=== PATIENT | female | born 1960 | race Caucasian/White ===

== ENCOUNTER 2025-03-19 12:57 | Inpatient (IN) | payer OTHER, SELFPAY ==
[2025-03-19] VITALS (10 sets, daily range): BP systolic 112–128; BP diastolic 50–63; PULSE 80–91; RESP 14–20; TEMP 36.6–37.1; O2SAT 92–98; BMI 37.9
--- NOTE | ~2025-03-19 | CT_ITS ---
EXAMINATION: CT ABDOMEN AND PELVIS WITH CONTRAST CLINICAL INFORMATION: abdominal pain, concern for microperfpain, concern for microperf Additional history according to electronic medical records: 2 weeks ago patient had colonoscopy. COMPARISON: None available. TECHNIQUE: Multidetector volumetric images were obtained from the superior aspect of the liver through the pubic symphysis following administration 85 cc of Omnipaque 350 intravenous contrast. Sagittal and coronal reformatted images were obtained on the technologist's workstation. Oral contrast: No This CT examination was performed using dose optimization techniques as appropriate, variously including the following: *Automated exposure control *Adjustment of mA and/or kV according to patient size (this includes techniques or standardized protocols for targeted exams where dose is matched to indication/reason for exam; i.e. extremities or head) *Use of iterative reconstruction technique FINDINGS: LOWER CHEST: No lung consolidation. No pleural effusion. LIVER: Hepatomegaly measuring 22.6 cm. Hypodense cystic lesion left hepatic lesion measuring 5.7 x 4.1 x 3.2 cm, with lobulated contour and measuring fluid density (10/ and 4:35/104). GALLBLADDER/BILIARY TREE: The gallbladder is unremarkable with no evidence of radiopaque gallstones, gallbladder wall thickening, or obvious pericholecystic inflammatory changes. No biliary ductal dilatation. PANCREAS: Unremarkable. SPLEEN: No splenomegaly. No focal lesions. ADRENAL GLANDS: No right adrenal nodule. Left adrenal nodule measuring 1.3 cm and 30 Hounsfield units is indeterminate. KIDNEYS AND URETERS: No suspicious solid renal masses, renal stones or hydronephrosis. GASTROINTESTINAL TRACT: Stomach is decompressed. Small bowel loops are normal in caliber. Normal appendix is not identified. Small amount of stool load within relatively decompressed asymmetry and transverse colons. Moderate stool load within the descending colon. Sigmoid colon is distended with moderate amount of stool content, and with diffuse wall thickening. There is an approximately 12.5 x 9.8 x 8.0 cm fluid collection with thick wall (2:61/94, 4:45/104) that communicates with the lumen of the sigmoid colon (4:44/104, 5:78/154); moderate amount of surrounding fat stranding. Scattered colonic diverticula. PERITONEUM/RETROPERITONEUM: Above described pelvic fluid collection extending from the sigmoid colon. No free air. LYMPH NODES: No bulky adenopathy. VASCULAR: No abdominal aortic aneurysm. Moderate atherosclerotic disease with calcifications. PELVIC VISCERA: Urinary bladder is decompressed by presence of pelvic fluid collection posteriorly. OSSEOUS STRUCTURES: No acute or suspicious bone abnormalities. CT/CT abdomen pelvis w IV con IMPRESSION: Pelvic collection with thick wall measuring up to 12.5 cm, extending from the sigmoid colon as described above. The findings are suggestive of contained sigmoid colon perforation. Differential consideration could include complicated diverticulitis. Presence of abnormal findings communicated via secured next message to the ordering provider MARIELA Cortez, with read confirmation at 4:26 PM. Abnormal findings were discussed with Dr. Vaughan at approximately 4:30 PM. Electronically signed by: Bry Devries MD 03/19/2025 04:37 PM EDT
--- NOTE | ~2025-03-19 | XR_ITS ---
CLINICAL HISTORY: medical [facility] 1 view chest x-ray Comparison: CT/VT/SR - CT ABDOMEN PELVIS WITH IV CONTRAST - 03/19/25 14:44 EDT Findings: The lungs are clear. Heart size is normal. No acute fracture. IMPRESSION: 1. No acute findings. This document has been electronically signed by: Lion Vogel MD on 03/19/2025 18:14:02
--- NOTE | 2025-03-19 13:30 | ED_ITS ---
HPI - General Adult General Chief complaint: Abdominal Pain Stated complaint: sent for CT scan Time Seen by Provider: 03/19/25 13:28 Source: patient Mode of arrival: ambulatory Limitations: no limitations History of Present Illness ED Provider: Janel Cortez PA-C HPI narrative: This is a 64 year old female with a history of hypertension, hypercholesterolemia, anemia, diverticulosis, and GERD that presents for evaluation of abdominal pain and urinary frequency. She states that two weeks ago she had a colonoscopy done by Dr. Ledesma to look for a source of her iron deficiency anemia. She has had abdominal pain since the procedure that she initially attributed to gas pain but she became concerned when it did not pass. She states the pain is sharp in quality. She has noticed an increase in urinary frequency, going every 45 minutes. Today she met with a provider at her primary care office, [facility], to have her abdominal pain evaluated and patient states that they were concerned with her abdominal exam and recommended that she be seen to get an emergent evaluation with an abdominal CT. She denies fever, chills or sweats but endorses increased fatigue and difficulty sleeping. She denies cough, chest pain, or shortness of breath. She endorses urinary frequency but denies dysuria, or hematuria. She is able to pass stool and flatus but has suprapubic abdominal pain. She describes the pain as sharp and constricting at times. She denies nausea, vomiting, melena or hematochezia. She endorses chronic constipation secondary to iron supplementation that she treats with Senna daily and Miralax as needed. She denies any skin changes or new rashes. She endorses a history of tobacco and alcohol use that she discontinued 10 years ago. She denies any current tobacco, alcohol, or recreational drug use. Related Data Home Medications ?Medication ?Instructions ?Recorded ?Confirmed citalopram 20 mg tablet 20 mg PO DAILY 03/19/25 metformin 500 mg tablet,extended 500 mg PO DAILY 03/19 release 24 hr olmesartan 40 mg tablet 40 mg PO DAILY 03/19/25 pantoprazole 40 mg tablet,delayed 40 mg PO DAILY 03/19 release rosuvastatin 10 mg tablet 10 mg PO BEDTIME 03/19/25 Allergies Allergy/AdvReac Type Severity Reaction Status Date / Time No Known Allergies (No Known Allergy Verified 03/19/25 13:02 Allergies*) Review of Systems 2 Constitutional: Constitutional: Reports as per HPI Eyes: Eyes: Reports as per HPI ENT: Reports as per HPI Cardiovascular: Cardiovascular: Reports as per HPI Respiratory: Respiratory: Reports as per HPI Gastrointestinal: Gastrointestinal: Reports as per HPI Genitourinary: Genitourinary: Reports as per HPI Musculoskeletal: Musculoskeletal: Reports as per HPI Integumentary/Breasts: Skin/Breast: Reports as per HPI Neurologic: Reports as per HPI Psychiatric: Psychiatric: Reports as per HPI Endocrine: Endocrine: Reports as per HPI Hematologic/Lymphatic: Hematologic/Lymphatic: Reports as per HPI Allergic/Immunologic: Allergic/Immunologic: Reports as per HPI [facility] Past Medical History Attestation statement: The following information was validated with the patient. Source: old records reviewed and nursing notes reviewed Medical History (Updated 03/19/25 @ 17:13 by MARIELA Paulino) Diverticulitis of colon with perforation Social History Social History Advance Directives: No Advance Directives Information Provided: Yes Do you have a plan to hurt others: No Plan Physical Exam ED Vital Signs: Vital Signs - 24 hr 03/19/25 13:00 03/19/25 14:05 03/19/25 16:11 Temperature 98.4 F 98.8 F 98.7 F Pulse Rate 91 84 80 Respiratory Rate 20 14 20 Blood Pressure 128/63 115/55 L 112/53 L Pulse Oximetry 96 95 95 Oxygen Delivery Method Room Air Room Air Room Air BMI result Body Mass Index 37.9 Const General: cooperative, alert, awake and other (Pale) Nutritional Appearance: well nourished Orientation/consciousness: oriented to person, oriented to place, oriented to time and patient oriented x3 HENMT Head: Yes normal to inspection Ears: external ears normal General nose exam: Normal external nose present Face and sinus: Yes normal facial exam Mouth: Normal oral and palatal mucosa present, no drooling and no muffled voice Eyes General: appearance normal, both eyes and all related structures Periorbital: periorbital findings normal Eyelids: Yes eyelids normal Conjunctivae: conjunctivae normal Pupils: Equal, round and reactive pupils present EOM: EOMs intact bilaterally Neck Neck: Yes normal visual inspection Resp Effort & Inspection: normal respiratory effort Auscultation: clear to auscultation bilaterally Cardio Rate: regular rate Rhythm: regular rhythm Heart sounds: S1 normal heart sound present and S2 normal heart sound present GI Palpation (GI): not firm, Tenderness to palpation present (GI), Guarding due to palpation present (GI) and not rigid Auscultation: normal bowel sounds Neuro General: oriented to person, oriented to place, oriented to time and patient oriented x3 Cranial nerves: Yes Equal, round and reactive pupils present Cognition (Neuro): normal cognition Extrem General: Yes normal to inspection, Yes full ROM and Yes capillary refill normal Psych Appearance: grossly normal Mental Status: mental status grossly normal Affect: normal affect Attitude: cooperative Thought process: Normal thought process present Thought content: Normal thought content present Insight: Good insight present (Psych) Medications Administered Discontinued Medications Generic Name Dose Route Start Last Admin Trade Name Tremayneq PRN Reason Stop Dose Admin Iohexol 100 ml 03/19/25 14:48 03/19/25 14:49 Iohexol 350 Mg/Ml 100 Ml Infus..Btl IV 03/19/25 14:49 85 ml ONCE ONE Administration Morphine Sulfate 4 mg 03/19/25 14:03 03/19/25 14:56 Morphine Sulfate 4 Mg/Ml Cartridge IVPUSH 03/19/25 14:04 4 mg ONCE ONE Administration Protocol Ondansetron HCl 4 mg 03/19/25 14:03 03/19/25 14:56 Ondansetron Hcl 4 Mg/2 Ml Vial IVPUSH 03/19/25 14:04 4 mg ONCE ONE Administration Medical Decision Making Medical Decision Making [facility] Narrative: Patient is a 64 year old assigned female at with a history of hypertension, hypercholesterolemia, anemia, diverticulosis, and GERD presenting to the emergency department today with abdominal pain. Patient's physical exam was as noted in the physical exam portion of this note and concerning for an acute abdomen. Patient's blood work showed a hgb 7.4 and hct of 25.8 but otherwise unremarkable. Patient's urine showed no acute process. Patient's CT abd/pelvis showed a pelvic collection with thick wall measuring up to 12.5cm extending from the sigmoid colon suggesting a contained sigmoid colon perforation. I explained my physical exam findings as well as all test results to the patient. I answered all questions asked by the patient. I spoke with the general surgeon, Dr. Vaughan, who recommended getting a repeat H&H and admitting to his service for IV antibiotics. Repeat H&H showed a hgb of 7.7 and hct of 26.3. Patient received IV morphine which, upon re-evaluation, she stated it helped her symptoms some. Patient verbalized agreement and understanding with this treatment plan and admission. Differential Diagnosis Differential Diagnoses: The differential diagnosis associated with the presentation includes Perforation Abdominal pain Diverticulitis Admission/Observation Consideration of admission/observation: Escalation of care including admission/observation considered Patient admitted as noted in the MDM Rationale portion of this note. Consult Healthcare Provider Management of the patient was discussed with: Graphic Art Technician (Spoke with the general surgeon product applications scientist as noted in the MDM Rationale portion of this note. ) Lab Data [facility] Lab Attestation statement: I reviewed the patient's lab results. My interpretation of these results are in the MDM Rationale portion of this note. 03/19/25 14:02 03/19/25 14:02 Labs: Lab Results 03/19/25 03/19/25 Range/Units 13:59 14:02 WBC 7.2 (4.8-10.8) X10*3/uL RBC 3.98 L (4.20-5.50) X10*6/uL Hgb 7.4 L (12.0-16.0) g/dl Hct 25.8 L (37.0-47.0) % MCV 64.8 L (80.0-98.0) fL MCH 18.6 L (27.0-33.0) pg MCHC 28.7 L (31.0-35.0) g/dl RDW 17.2 H (11.0-16.0) % Plt Count 492 H (160-400) X10*3/uL MPV 8.6 L (9.4-12.3) fL Immature Gran % (Auto) 0.3 (0.0-0.4) % Neut % (Auto) 52.7 (45-73) % Lymph % (Auto) 25.7 (20-40) % Dukes % (Auto) 18.9 H (2-11) % Eos % (Auto) 1.4 (0-4) % Baso % (Auto) 1.0 (0-2) % Lymph # (Auto) 1.8 (1.2-4.9) X10*3/uL Dukes # (Auto) 1.4 H (0.1-1.2) X10*3/uL Eos # (Auto) 0.1 (0.0-0.4) X10*3/uL Baso # (Auto) 0.1 (0.0-0.2) X10*3/uL Abs Immat Gran (auto) 0.02 (0.00-0.03) X10*3/uL Absolute Neuts (auto) 3.8 (2.0-8.3) x10*3/uL Absolute Nucleated RBC 0.000 (0.0-0.012) X10*3/uL Nucleated RBC % (auto) 0.0 (0.0-0.2) /100WBC Sodium 139 (135-145) mmol/L Potassium 3.7 (3.3-5.1) mmol/L Chloride 105 (96-108) mmol/L Carbon Dioxide 28 (22-29) mmol/L Anion Gap 10 L (12-20) BUN 7 L (9-16) mg/dL Creatinine 0.52 (0.5-1.4) mg/dL Estim Creat Clear Calc 119.8 Estimated GFR > 60 Random Glucose 86 (60-115) mg/dL Calcium 8.5 (8.4-10.2) mg/dL Total Bilirubin 0.2 (0.0-1.0) mg/dL AST 14 (5-31) U/L ALT < 6 (0-31) U/L Alkaline Phosphatase 78 (39-117) U/L Total Protein 6.4 L (6.5-8.0) g/dL Albumin 3.3 L (3.5-5.0) g/dL Urine Color Yellow Urine Appearance Clear Urine pH 7.0 (5.0-9.0) Ur Specific [place] 1.020 (1.005-1.025) Urine Protein Trace (Neg-Trace) mg/dL Urine Glucose (UA) Negative (Negative) mg/dL Urine Ketones Negative (Negative) mg/dL Urine Blood Negative (Negative) Urine Nitrite Negative (Negative) Ur Leukocyte Esterase Trace H (Negative) Urine RBC 0-2 (0-2) /HPF Urine WBC 0-5 (0-5) /HPF Ur Squamous Epith Cells 6-10 (0-2) /HPF Urine Bacteria Trace (None Seen) Hyaline Casts 0-2 (0-2) /LPF Independent Interpretation I performed an independent interpretation of an: CT Scan Interpretation: My interpretation is in agreement with the radiologist's impression of this imaging study. L Reason for Exam: abdominal pain, concern for microperf EXAMINATION: CT ABDOMEN AND PELVIS WITH CONTRAST CLINICAL INFORMATION:abdominal pain, concern for microperfpain, concern for microperf Additional history according to electronic medical records: 2 weeks ago patient had colonoscopy. COMPARISON: None available. TECHNIQUE: Multidetector volumetric images were obtained from the superior aspect of the liver through the pubic symphysis following administration 85 cc of Omnipaque 350 intravenous contrast. Sagittal and coronal reformatted images were obtained on the technologist's workstation. Oral contrast: No This CT examination was performed using dose optimization techniques as appropriate, variously including the following: *Automated exposure control *Adjustment of mA and/or kV according to patient size (this includes techniques or standardized protocols for targeted exams where dose is matched to indication/reason for exam; i.e. extremities or head) *Use of iterative reconstruction technique FINDINGS: LOWER CHEST: No lung consolidation. No pleural effusion. LIVER: Hepatomegaly measuring 22.6 cm. Hypodense cystic lesion left hepatic lesion measuring 5.7 x 4.1 x 3.2 cm, with lobulated contour and measuring fluid density (10/ and 4:35/104). GALLBLADDER/BILIARY TREE: The gallbladder is unremarkable with no evidence of radiopaque gallstones, gallbladder wall thickening, or obvious pericholecystic inflammatory changes. No biliary ductal dilatation. PANCREAS: Unremarkable. SPLEEN: No splenomegaly. No focal lesions. ADRENAL GLANDS: No right adrenal nodule. Left adrenal nodule measuring 1.3 cm and 30 Hounsfield units is indeterminate. KIDNEYS AND URETERS: No suspicious solid renal masses, renal stones or hydronephrosis. GASTROINTESTINAL TRACT: Stomach is decompressed. Small bowel loops are normal in caliber. Normal appendix is not identified. Small amount of stool load within relatively decompressed asymmetry and transverse colons. Moderate stool load within the descending colon. Sigmoid colon is distended with moderate amount of stool content, and with diffuse wall thickening. There is an approximately 12.5 x 9.8 x 8.0 cm fluid collection with thick wall (2:61/94, 4:45/104) that communicates with the lumen of the sigmoid colon (4:44/104, 5:78/154); moderate amount of surrounding fat stranding. Scattered colonic diverticula. PERITONEUM/RETROPERITONEUM: Above described pelvic fluid collection extending from the sigmoid colon. No free air. LYMPH NODES: No bulky adenopathy. VASCULAR: No abdominal aortic aneurysm. Moderate atherosclerotic disease with calcifications. PELVIC VISCERA: Urinary bladder is decompressed by presence of pelvic fluid collection posteriorly. OSSEOUS STRUCTURES: No acute or suspicious bone abnormalities. CT/CT abdomen pelvis w IV con IMPRESSION: Pelvic collection with thick wall measuring up to 12.5 cm, extending from the sigmoid colon as described above. The findings are suggestive of contained sigmoid colon perforation. Differential consideration could include complicated diverticulitis. Presence of abnormal findings communicated via secured next message to the ordering provider MARIELA Cortez, with read confirmation at 4:26 PM. Abnormal findings were discussed with Dr. Vaughan at approximately 4:30 PM. Electronically signed by: Bry Devries MD 03/19/2025 04:37 PM EDT RP Dictated By: Bry Devries MD Signed By: Electronically signed by Bry Devries MD 03/19/25 1637 I independently interpreted this EKG and am in agreement with the below findings: Vent. Rate: 84 BPM Atrial Rate: 84 BPM P-R Int: 138 ms QRS Dur: 78 ms QT Int: 372 ms P-R-T Axes: 44 -5 9 degrees QTcB Int: 439 ms Normal sinus rhythm Low voltage QRS No previous ECGs available DD/ 1700 Radiology Impression Discussion of test interpretation with radiology: I have reviewed the radiologist's reading. Critical Care Time Critical Care Time Critical Care Time: Yes Total Critical Care Time: 51 Attestation: I spent 51 minutes of Critical Care Time with this patient. This does not include time spent on separately reported billable procedures. Discharge Plan Discharge Clinical Impression: Diverticulitis of colon with perforation Patient Disposition: Admitted As Inpatient Print Language: Pakistani
[2025-03-19 14:06] LABS: MANUAL DIFF FLAG NO
[2025-03-19 14:11] LABS: Hematocrit 25.8 % (37.0-47.0); Hemoglobin 7.4 g/dl (12.0-16.0); Imm Gran Abs Auto 0.02 X10*3/uL (0.00-0.03); Imm Gran Pct Auto 0.3 % (0.0-0.4); Lymphocytes Absolute Auto 1.8 X10*3/uL (1.2-4.9); Mean Corpuscular HGB Conc 28.7 g/dl (31.0-35.0); Mean Corpuscular Hemoglobin 18.6 pg (27.0-33.0); NRBC Abs Auto 0.000 X10*3/uL (0.0-0.012); NRBC Pct Auto 0.0 /100WBC (0.0-0.2); Platelet Count 492 X10*3/uL (160-400); Red Blood Count 3.98 X10*6/uL (4.20-5.50); White Blood Count 7.2 X10*3/uL (4.8-10.8)
[2025-03-19 14:12] LABS: Mean Corpuscular Volume 64.8 fL (80.0-98.0)
[2025-03-19 14:12] LABS: Appearance Urine Clear; Glucose Urine UA Negative (Negative); PH 7.0 (5.0-9.0); Specific Gravity - Urine 1.020 (1.005-1.025); UMIC TRIGGER UACC YES
[2025-03-19 14:24] LABS: Alanine Aminotransferase < 6 U/L (0-31); Albumin Level 3.3 g/dL (3.5-5.0); Alkaline Phosphatase 78 U/L (39-117); Anion Gap 10 (12-20); Aspartate Amino Transferase 14 U/L (5-31); Blood Urea Nitrogen 7 mg/dL (9-16); Calcium 8.5 mg/dL (8.4-10.2); Carbon Dioxide 28 mmol/L (22-29); Chloride 105 mmol/L (96-108); Creatinine Clr Calc Pharmacy 119.8; Estimated Glomerular Filt Rate > 60; Potassium 3.7 mmol/L (3.3-5.1); Sodium 139 mmol/L (135-145); Total Protein 6.4 g/dL (6.5-8.0)
[2025-03-19] MEDS: iohexoL 350 MG/ML 100 ML INFUS..BTL IV (14:49)
--- OUTSIDE RECORDS SUMMARY | 2025-03-19 15:51 | XMS_ITS | Clinical Summary ---
Author Organization [facility] Address [address] [place] [phone] Phone Care Team Providers Care Telecommunications Field Engineer Name Role Phone Pcp, Unknown Primary Care Provider Unavailabl e Encounters Date Type Department Care Team Description 03/05/2025 8:16 AM EDT - 03/05/2025 11:59 PM EDT Hospital Encounter [facility] [address] [place] [id number] Juan Ledesma MD Discharge Disposition: Home or Self Care from Last 3 Months Social History Tobacco Use Types Packs/Day Years Used Date Smoking Tobacco: Never Assessed Education Answer Date Recorded Are you interested in more education? Not on jeffrey e 09/24/2024 Are you concerned about learning? Not on file 09/24/2024 No 09/24/2024 No 09/24/2024 Digital Access Answer Date Recorded No 09/24/2024 No 09/24/2024 Reliable internet access at home? Not on file 09/24/2024 Device with a working camera? Not on file Comments Unknown Sex and Gender Information Value Date Recorded Sex Assigned at Not on file Legal Sex Female 4:56 PM EDT Gender Identity Not on file Sexual Orientation Not on file Plan of Treatment Not on file Medical Devices Not on file Procedures Procedure Name Priority Date/Time Associated Diagnosis Comments ANATOMIC PATHOLOGY Routine 03/05/2025 12 :00 AM EDT from Last 3 Months Results * Anatomic Pathology (03/05/2025 12:00 AM EDT) 03/05/2025 03/06/2025 10: 37 AM EDT Narrative SEE NARRATIVE - 03/07/2025 1:55 PM EDT [address] [address] Hvac Operations Technician: Waqas Ta MD Surgical Pathology Report FINAL PATHOLOGIC DIAGNOSIS: A. DUODENUM, BIOPSY: No pathologic abnormality. B. COLON POLYP AT 55CM: Inflammatory polyp. Electronically Signed Out By Waqas Ta MD By his/her signature above, the pathologist listed as making the Final Diagnosis certifies that he/she has personally reviewed this case and confirmed or corrected the diagnosis. CLINICAL HISTORY Iron deficiency anemia, gastroesophageal reflux disease, last colonoscopy previous aborted/incomplete at [facility] May 2022 SPECIMENS SUBMITTED: A: DUODENUM, BIOPSY B: COLON AT 55CM, POLYP GROSS DESCRIPTION A. DUODENUM, BIOPSY: Received in formalin are 3 irregular raymond-pink soft tissue fragments varying in size from 0.3 x 0.2 x 0.2 cm up to 0.4 x 0.3 x 0.3 cm which are submitted in toto in a single cassette labeled A1. B. COLON AT 55CM, POLYP: Received in formalin is a 0.5 x 0.4 x 0.3 cm irregular portion of raymond-pink soft tissue which is submitted in toto in a single cassette labeled B1. Grossed by: MARVA Williamson, PA([facility]) [id number] 03/06/2025 Grossing Staff: [id number] Patient Name: AGUSTIN FLORES : 1960 (Age: 64) Sex: F Institution: [facility] Location: [facility] Date of Operation: 03/05/2025 Date of Reported: 03/07/2025 13:55 Results To: Juan Ledesma MD [facility] Chastity Yuan NP us Juan Ledesma MD PATHOLOGY ORDERABLES Final Res ult SEE NARRATIVE from Last 3 Months Insurance [facility] UMR U[employer] [facility] Care Teams Telecommunications Field Engineer Relationship Specialty Start Date End Date Pcp, Unknown PCP - General 09/23/24 Additional Source Comments The information contained in this document represents components of the legal health record. It is not the complete legal health record.[facility]
--- NOTE | 2025-03-19 16:31 | ECG_ITS ---
Test Reason : MEDICAL CLEARANCE Blood Pressure : */* mmHG Vent. Rate : 84 BPM Atrial Rate : 84 BPM P-R Int : 138 ms QRS Dur : 78 ms QT Int : 372 ms P-R-T Axes : 44 -5 9 degrees QTcB Int : 439 ms Normal sinus rhythm Low voltage QRS Borderline ECG No previous ECGs available Referred By: Janel Cortez Electronically Signed By: Jluis Alvarez
[2025-03-19 16:56] LABS: MANUAL DIFF FLAG NO
[2025-03-19 16:57] LABS: Hematocrit 26.3 % (37.0-47.0); Hemoglobin 7.7 g/dl (12.0-16.0); Imm Gran Abs Auto 0.02 X10*3/uL (0.00-0.03); Imm Gran Pct Auto 0.3 % (0.0-0.4); Lymphocytes Absolute Auto 2.1 X10*3/uL (1.2-4.9); Mean Corpuscular HGB Conc 29.3 g/dl (31.0-35.0); Mean Corpuscular Hemoglobin 18.8 pg (27.0-33.0); NRBC Abs Auto 0.000 X10*3/uL (0.0-0.012); NRBC Pct Auto 0.0 /100WBC (0.0-0.2); Platelet Count 501 X10*3/uL (160-400); Red Blood Count 4.10 X10*6/uL (4.20-5.50); White Blood Count 7.3 X10*3/uL (4.8-10.8)
[2025-03-19 16:58] LABS: Mean Corpuscular Volume 64.1 fL (80.0-98.0)
--- NOTE | 2025-03-19 17:00 | PM.HPGS ---
History of Present Illness History of Present Illness Date of Service: 03/24/25 Chief complaint: Diverticulitis with contained perforation Narrative: Flores Xiao is a 64 year old female known diverticular disease, chronic anemia, borderline diabetes, here in the ER because of lower abdominal pain. She says that he has had this for several months but seems to have been worse the past 2 weeks. She actually had a colonoscopy 2 weeks ago in [facility] and she was noted to have poor bowel prep, severe diverticulosis and a narrowing in the sigmoid as well. In view of her persistent pain on the lower abdomen, she was sent to the ER by her primary care physician today She denies admitting although she says she may have been a little nauseous earlier today She has chronic constipation. She did have good bowel movements yesterday. She denies any fever or chills. She describes some urgency of urination and says that she often feels pressure in the pelvis when she urinates. She otherwise says that she remains active with good oral intake even today. She says she has been ambulating well at home. Review of Systems Constitutional: Constitutional: Denies chills and Denies fever(s) Cardiovascular: Cardiovascular: Denies chest pain, Denies dyspnea and Denies dyspnea on exertion Respiratory: Respiratory: Denies cough, Denies dyspnea and Denies dyspnea on exertion Gastrointestinal: Gastrointestinal: Denies hematochezia, Denies change in bowel habits and Reports constipation Genitourinary: Genitourinary: Denies hematuria Musculoskeletal: Musculoskeletal: Denies back pain and Denies limited range of motion Neurologic: Denies focal weakness and Denies convulsions Psychiatric: Psychiatric: Denies depression and Denies mood swings [facility] Past Medical History Medical History Anxiety HTN (hypertension) Class 2 obesity Depression HLD (hyperlipidemia) GERD (gastroesophageal reflux disease) Borderline diabetes Iron deficiency anemia Diverticulitis of colon with perforation Surgical History Surgical History Status post surgical removal of malignant neoplasm of skin Social History Social History Household Members: Family Housing: House Do you presently have visiting nurse or other home services: No Patient Tobacco Use Status: Former Tobacco user service: No Meds Allergies Allergy/AdvReac Type Severity Reaction Status Date / Time No Known Allergies (No Known Allergy Verified 03/20/25 10:00 Allergies*) Home Medications ?Medication ?Instructions ?Recorded ?Confirmed ?Last Taken ?Type acetaminophen 500 mg tablet 1,000 mg PO BID PRN Pain 03/19/25 03/19/25 Unknown History citalopram 20 mg tablet 20 mg PO BEDTIME 03/19/25 03/19/25 03/18/25 History metformin 500 mg tablet,extended 500 mg PO BEDTIME 03/19/25 03/19/25 03/18/25 History release 24 hr olmesartan 40 mg tablet 40 mg PO BEDTIME 03/19/25 03/19/25 03/18/25 History pantoprazole 40 mg tablet,delayed 40 mg PO DAILY@1630 03/19/25 03/19/25 03/18/25 History release rosuvastatin 10 mg tablet 10 mg PO BEDTIME 03/19/25 03/19/25 03/18/25 History sennosides 8.6 mg tablet (senna) 17.6 mg PO BEDTIME PRN Constipation 03/19/25 03/19/25 Unknown History Physical Exam Vital Signs: Vital Signs: Last Vital Signs Temp 98.7 F 03/19/25 16:11 Pulse 80 03/19/25 16:11 Resp 20 03/19/25 16:11 BP 112/53 L 03/19/25 16:11 Pulse Ox 95 03/19/25 16:11 O2 Del Method Room Air 03/19/25 16:11 BMI result Body Mass Index 37.9 Const: General: comfortable and no acute distress Orientation/consciousness: patient oriented x3 Neck: Neck: Yes no lymphadenopathy Resp: Auscultation: clear to auscultation bilaterally Cardio: Rhythm: regular rhythm GI: Other: Mild lower abdominal tenderness without any guarding or rebound Palpation (GI): Soft to palpation, nontender and no guarding Neuro: General: patient oriented x3 Results Results Labs: Short CBC 03/19/25 03/19/25 Range/Units 14:02 16:51 WBC 7.2 7.3 (4.8-10.8) X10*3/uL Hgb 7.4 L 7.7 L (12.0-16.0) g/dl Hct 25.8 L 26.3 L (37.0-47.0) % Plt Count 492 H 501 H (160-400) X10*3/uL BMP 03/19/25 14:02 Sodium 139 Potassium 3.7 Chloride 105 Carbon Dioxide 28 BUN 7 L Creatinine 0.52 Calcium 8.5 Liver Function 03/19/25 Range/Units 14:02 Total Bilirubin 0.2 (0.0-1.0) mg/dL AST 14 (5-31) U/L ALT < 6 (0-31) U/L Alkaline Phosphatase 78 (39-117) U/L Albumin 3.3 L (3.5-5.0) g/dL Urine 03/19/25 Range/Units 13:59 Urine Color Yellow Urine Appearance Clear Urine pH 7.0 (5.0-9.0) Ur Specific [place] 1.020 (1.005-1.025) Urine Protein Trace (Neg-Trace) mg/dL Urine Glucose (UA) Negative (Negative) mg/dL Abdomen CT scan report/results: report reviewed and image reviewed CT scan - pelvis: report reviewed and image reviewed Additional studies: CT/CT abdomen pelvis w IV con IMPRESSION: Pelvic collection with thick wall measuring up to 12.5 cm, extending from the sigmoid colon as described above. The findings are suggestive of contained sigmoid colon perforation. Differential consideration could include complicated diverticulitis. Presence of abnormal findings communicated via secured next message to the ordering provider MARIELA Cortez, with read confirmation at 4:26 PM. Abnormal findings were discussed with Dr. Vaughan at approximately 4:30 PM. Assessment and Plan (1) Diverticulitis of colon with perforation: Status: Acute She has had persistent lower abdominal pain for more than 2 weeks now. I have reviewed her CAT scan with the radiologist. This is consistent with acute diverticulitis with a contained perforation. This appears to be more than just an abscess. There was note of significant inflammatory changes in the segment of the sigmoid. In view of the large size of this contained perforation, this is unlikely to resolve. I explained to her that it this is likely that she will benefit from resection with a colostomy for this markedly diseased sigmoid. I explained the technique of this procedure of hand assisted laparoscopic sigmoid resection and stoma with possible conversion to open laparotomy. I reviewed the risks including but not limited to bleeding, infections, injury to other organs including adjacent bowel and urinary tract, inherent risks of anesthesia including blood clots, pneumonia, PA, as well as the benefits and alternatives. I reviewed with her what to expect postoperatively She says she understands. We will re-evaluate her tomorrow. I will put her on the add on schedule in the meantime . Her hemoglobin is low and she does state that she has chronic anemia with an etiology that is unknown. She denies any obvious GI bleed. I will transfuse her tonight with 1 unit in preparation for likely surgery. I will also consult the hospitalist service in view of her diabetes and hypertension. I have consulted IR for tomorrow to see if there is any benefit for IR drainage. She is hemodynamically stable and appears comfortable currently. Her family was with her during the discussion. Quality Stroke Does the patient have a stroke diagnosis?: No VTE Prior VTE?: No VTE Risk Level:: Medical - moderate - high VTE Device Contraindication: N/A - Device Ordered VTE Drug Contraindication: N/A - Med Ordered Procedures Date of Service Date of Service: 03/24/25
[2025-03-19] MEDS: Lactated Ringers 1,000 ML 80 ML IVCONT (17:45)
--- NOTE | 2025-03-19 17:49 | PHA.MEDREC ---
Addendum entered by Karlos Torrez RPh 03/19/25 17:54: Reviewed by [facility] Original Note: Pharmacy Consult ? Medication Reconciliation Pharmacy has completed the medication reconciliation. Spoke with pt and she confirmed her medications. Pt confirmed her medications are taken at bedtime. Pt takes an OTC medication; Reacted Iron: 1 BID.
--- NOTE | 2025-03-19 18:51 | PC.NURSE ---
Call received from blood bank PRBC's ready, tiger text Dr. Vaughan to come and consent pt.
--- NOTE | 2025-03-19 18:56 | MHC.EDTECH ---
pt independently transferred to hospital bed, pt comfortable, call zaidi and bedside table within reach, RN aware
--- NOTE | 2025-03-19 19:35 | PC.NURSE ---
Received text from Dr. Vaughan regarding consent, states not in-house, will request ED doc for consent
--- NOTE | 2025-03-19 19:52 | PC.NURSE ---
Consent for transfusion obtained via Dr. Abdi
--- NOTE | 2025-03-19 22:10 | P.CONHOSP_ITS ---
History of Present Illness Data of Consult Service Date: 03/19/25 Requesting physician: Declan Vaughan Primary Care Provider: Chastity Yuan NP HPI Reason for consult: medical management Patient is a 64-year-old female with a past medical history significant for diverticulosis, iron-deficiency anemia, borderline diabetes on metformin, GERD, hyperlipidemia, depression, hypertension and class 2 obesity, who presented to the ED due to abdominal pain and feeling unwell for the past 2 weeks after having a colonoscopy. She reports increased urination with an odor, nausea. No diarrhea or constipation. No hematochezia. now having new 5/10 epigastric pain, deep, ache. still having lower abd pain as well. Workup in the ED significant for sigmoid diverticulitis with perforation and abscess. Patient was admitted by surgery for and assisted laparoscopic sigmoid resection with stoma and possible conversion to open laparotomy tomorrow. Hemoglobin 7.4, repeat 7.7, patient getting 1 unit PRBC now. She was started on Zosyn. Hospitalist consultation placed for medical management. Review of Systems 2 Constitutional: Constitutional: Denies body ache(s), Denies chills, Denies fatigue, Denies fever(s) and Reports headache(s) Eyes: Eyes: Denies change in vision ENT: Reports headache(s), Denies nasal congestion and Denies sore throat Cardiovascular: Cardiovascular: Denies chest pain, Denies rapid heart rate, Denies leg edema, Denies lightheadedness and Denies dyspnea Respiratory: Respiratory: Denies chest congestion, Denies cough, Denies dyspnea and Denies wheezing Gastrointestinal: Gastrointestinal: Reports as per HPI and Reports nausea Genitourinary: Genitourinary: Denies difficulty voiding and Denies dysuria Musculoskeletal: Musculoskeletal: Denies back pain and Denies myalgias Integumentary/Breasts: Skin/Breast: Denies rash Neurologic: Denies confusion and Reports headache(s) Psychiatric: Psychiatric: Denies confusion Endocrine: Endocrine: Denies fatigue Hematologic/Lymphatic: Hematologic/Lymphatic: Denies easy bleeding and Denies easy bruising Allergic/Immunologic: Allergic/Immunologic: Denies wheezing [facility] Medical History (Updated 03/19/25 @ 22:40 by Bela Owen PA-C) Class 2 obesity Depression HLD (hyperlipidemia) GERD (gastroesophageal reflux disease) Borderline diabetes Iron deficiency anemia Diverticulitis of colon with perforation Functional capacity: independent ambulation Social History Smoked in Last 30 Days: No Use of substances other than those prescribed or required for medical reasons: No Advance Directives: No Advance Directives Information Provided: Yes Do you have a plan to hurt others: No Plan Patient : No Narrative: No smoking, alcohol or drug use Meds Allergies Allergy/AdvReac Type Severity Reaction Status Date / Time No Known Allergies (No Known Allergy Verified 03/19/25 13:02 Allergies*) Active Medications: Current Medications Acetaminophen (Acetaminophen 325 Mg Tablet) 650 mg PO Q6H PRN PRN Reason: Pain, Mild 1-3,fever,headache Calcium Carbonate (Calcium Carbonate 750 Mg Tab.Chew) 750 mg PO Q4H PRN PRN Reason: Heartburn Heparin Sodium (Porcine) (Heparin Sodium,Porcine 5,000 Unit/Ml Vial) 5,000 unit SUBCUT Q8H [facility] Lactated Ringer's (Lr) 1,000 mls @ 80 mls/hr IVCONT .[id number] [facility] Last Admin: 03/19/25 17:45 Dose: 80 mls/hr Piperacillin Sod/Tazobactam (Sod 3.375 gm/ Sodium Chloride) 50 mls @ 100 mls/hr IV Q6H [facility] Last Infusion: 03/19/25 18:45 Dose: Infused Melatonin (Melatonin 3 Mg Tablet) 6 mg PO BEDTIME PRN PRN Reason: Insomnia Morphine Sulfate (Morphine Sulfate 4 Mg/Ml Cartridge) 3 mg IVPUSH Q4H PRN; Protocol PRN Reason: Pain, Severe (Pain Scale 7-10) Last Admin: 03/19/25 17:50 Dose: 3 mg Ondansetron HCl (Ondansetron Hcl 4 Mg/2 Ml Vial) 4 mg IVPUSH Q8H PRN PRN Reason: Nausea and Vomiting Sodium Chloride (0.9 % Sodium Chloride Flush 3 Ml Syringe) 3 ml IVFLUSH QSHIFT [facility] Valsartan (Valsartan 160 Mg Tablet) 160 mg PO DAILY [facility] Home Medications ?Medication ?Instructions ?Recorded ?Confirmed ?Last Taken ?Type acetaminophen 500 mg tablet 1,000 mg PO BID PRN Pain 0 03/19/25 03/19/25 Unknown History citalopram 20 mg tablet 20 mg PO BEDTIME 03/19/2503/18/25 History metformin 500 mg tablet,extended 500 mg PO BEDTIME 03/19/25 03/18/25 History release 24 hr olmesartan 40 mg tablet 40 mg PO BEDTIME 03/19/2503/18/25 History pantoprazole 40 mg tablet,delayed 40 mg PO DAILY@1630 03/19/25 03/19/25 03/18/25 History release rosuvastatin 10 mg tablet 10 mg PO BEDTIME 03/19/2503/18/25 History sennosides 8.6 mg tablet (senna) 17.6 mg PO BEDTIME [place] N Constipation 03/19/25 03/19/25 Unknown History Physical Exam 2 Vital Signs and Narrative: Vital Signs: Last Vital Signs Temp 98.4 F 03/19/25 20:51 Pulse 82 03/19/25 20:51 Resp 14 03/19/25 20:51 BP 120/53 L 03/19/25 20:51 Pulse Ox 92 03/19/25 20:51 O2 Del Method Room Air 03/19/25 20:51 BMI result Body Mass Index 37.9 General: AOx3, no acute distress Resp: CTA bilaterally CVS: S1, S2, RRR GI: +BS, tender throughout, mild distention Skin: Warm, dry Neuro: Cranial nerves II-XII grossly intact bilaterally. Motor grossly intact bilaterally Extremities: No pitting edema Psych: Appropriate affect Const: General: No confusion Orientation/consciousness: No confusion Neuro: General: No confusion Results Labs 03/19/25 16:51 03/19/25 14:02 Labs: Laboratory Results - last 24 hr 03/19/25 03/19/25 03/19/25 13:59 14:02 16:51 MCV 64.8 L 64.1 L MCH 18.6 L 18.8 L MCHC 28.7 L 29.3 L RDW 17.2 H 17.4 H Plt Count 492 H 501 H MPV 8.6 L 8.4 L Immature Gran % (Auto) 0.3 0.3 Neut % (Auto) 52.7 53.6 Lymph % (Auto) 25.7 28.3 Teller % (Auto) 18.9 H 15.6 H Eos % (Auto) 1.4 1.4 Baso % (Auto) 1.0 0.8 Lymph # (Auto) 1.8 2.1 Teller # (Auto) 1.4 H 1.1 Eos # (Auto) 0.1 0.1 Baso # (Auto) 0.1 0.1 Abs Immat Gran (auto) 0.02 0.02 Absolute Neuts (auto) 3.8 3.9 Absolute Nucleated RBC 0.000 0.000 Nucleated RBC % (auto) 0.0 0.0 Anion Gap 10 L Estim Creat Clear Calc 119.8 Estimated GFR > 60 Random Glucose 86 Calcium 8.5 Total Bilirubin 0.2 AST 14 ALT < 6 Alkaline Phosphatase 78 Total Protein 6.4 L Albumin 3.3 L Urine Color Yellow Urine Appearance Clear Urine pH 7.0 Ur Specific [place] 1.020 Urine Protein Trace Urine Glucose (UA) Negative Urine Ketones Negative Urine Blood Negative Urine Nitrite Negative Ur Leukocyte Esterase Trace H Urine RBC 0-2 Urine WBC 0-5 Ur Squamous Epith Cells 6-10 Urine Bacteria Trace Hyaline Casts 0-2 Blood Type O Positive Antibody Screen NEGATIVE Crossmatch See Detail Imaging Radiologist's Impressions: Impressions Abdomen/Pelvis CT 03/19/25 14:44 IMPRESSION: Pelvic collection with thick wall measuring up to 12.5 cm, extending from the sigmoid colon as described above. The findings are suggestive of contained sigmoid colon perforation. Differential consideration could include complicated diverticulitis. Presence of abnormal findings communicated via secured next message to the ordering provider MARIELA Cortez, with read confirmation at 4:26 PM. Abnormal findings were discussed with Dr. Vaughan at approximately 4:30 PM. Electronically signed by: Bry Devries MD 03/19/2025 04:37 PM EDT Assessment and Plan (1) Diverticulitis of colon with perforation: Status: Acute (2) Iron deficiency anemia: Status: Acute Plan Patient is a 64-year-old female with a past medical history significant for diverticulosis, iron-deficiency anemia, borderline diabetes on metformin, GERD, hyperlipidemia, depression, hypertension and class 2 obesity, who presented to the ED due to abdominal pain and feeling unwell for the past 2 weeks after having a colonoscopy. Admitted by general surgery for diverticulitis with sigmoid colon perforation and abscess, plan for hand assisted laparoscopic sigmoid resection tomorrow with stoma and possible conversion to open laparoscopy. Diverticulitis with colon perforation/abscess - plan per surgery, OR tomorrow - Dr Vaughan aware of new epigastric pain - Zosyn - high-risk for high-risk surgery, RCRI score 1 - hold heparin prior to surgery Iron deficiency anemia, hgb 7.7 - 1U PRBC - follow H+H borderline DM - hold metformin - sliding scale insulin GERD - PPI HLD - statin mood - citalopram HTN, normotensive - olmesartan class 2 obesity - weight loss encouraged Thank you for allowing me to participate in the pt's care. Will follow along. Please contact the medical team if any questions or concerns.
--- NOTE | 2025-03-19 22:10 | HO.NURTONUR ---
Addendum entered by Nga Bai RN 03/19/25 22:15: Pt has been npo w/ ice chips per Dr. Vaughan Original Note: Pt here w/ c/o lower abd pain since having her colonoscopy 2 weeks ago. Pt states she was told after the procedure she has severe diverticulosis . Pt has no assoc sx's. CT shows 12cm fluid collection in abdomen, probable abscess w/ perforation. Plan is for IR for drain or surgery. Pt also has pmhx of anemia however today was found to be extra low @ 01/18 and was transfused w/ 1 unit PRBC's in anticipation of surgery. Pain controlled w/ MSO4.
--- NOTE | 2025-03-19 22:59 | PC.NURSE ---
this rn assumed care of pt, pt resting in stretcher, no acute distress noted. blood products and fluids administering per mar at this time
[2025-03-19 23:51] LABS: Glucose, Whole Blood 88 mg/dL (60-115)
[2025-03-20] VITALS (27 sets, daily range): BP systolic 87–141; BP diastolic 30–77; PULSE 72–101; RESP 11–20; TEMP 36.6–36.9; O2SAT 92–100; BMI 41.6
--- NOTE | 2025-03-20 | PC.NURSE ---
pt reporting 7/10 abdominal pain, medicated per mar with prn pain medication, ambulatory to bathroom independently with steady gait
[2025-03-20 04:11] LABS: Hematocrit 27.1 % (37.0-47.0); Hemoglobin 8.2 g/dl (12.0-16.0); Imm Gran Abs Auto 0.03 X10*3/uL (0.00-0.03); Imm Gran Pct Auto 0.4 % (0.0-0.4); Lymphocytes Absolute Auto 1.9 X10*3/uL (1.2-4.9); MANUAL DIFF FLAG SCAN; Mean Corpuscular HGB Conc 30.3 g/dl (31.0-35.0); Mean Corpuscular Hemoglobin 19.7 pg (27.0-33.0); NRBC Abs Auto 0.000 X10*3/uL (0.0-0.012); NRBC Pct Auto 0.0 /100WBC (0.0-0.2); Platelet Count 442 X10*3/uL (160-400); Red Blood Count 4.17 X10*6/uL (4.20-5.50); SCAN SMEAR FLAG 1; White Blood Count 6.7 X10*3/uL (4.8-10.8)
[2025-03-20 04:15] LABS: Mean Corpuscular Volume 65.0 fL (80.0-98.0)
[2025-03-20 04:23] LABS: Anion Gap 12 (12-20); Blood Urea Nitrogen 7 mg/dL (9-16); Calcium 8.4 mg/dL (8.4-10.2); Carbon Dioxide 26 mmol/L (22-29); Chloride 106 mmol/L (96-108); Creatinine Clr Calc Pharmacy 119.8; Estimated Glomerular Filt Rate > 60; Potassium 3.4 mmol/L (3.3-5.1); Sodium 141 mmol/L (135-145)
[2025-03-20 05:24] LABS: Glucose, Whole Blood 89 mg/dL (60-115)
[2025-03-20] MEDS: Lactated Ringers 1,000 ML 80 ML IVCONT ×2 (06:10→19:59)
--- NOTE | 2025-03-20 06:15 | PC.NURSE ---
pt medicated per aug for 8 headache at this time, ambulatory to bathroom with steady gait. fluids administering
[2025-03-20 07:01] LABS: Glucose, Whole Blood 81 mg/dL (60-115)
--- NOTE | 2025-03-20 07:07 | PC.NURSE ---
Assumed care of patient. Pt is calm and cooperative, A+OX4, pt denies any CP or SOB, RR even and unlabored. Pt c/o ongoing lower abdominal pain, now a / and medicated per AUG. Pt is ambulatory at baseline. Pt denies any other complaints, no n/v.
--- NOTE | 2025-03-20 08:12 | P.CONAN_ITS ---
Documented by User: Shavon Maguire NP 03/20/25 09:24 HPI - Anesthesia Eval Consult details Narrative: 64 yr old female for Hand Assist Laparoscopic Sigmoid Resection No CP/SOB with limited activity 2/2 knee, hip pain. No recent illness Received 1 unit PRBCs 03/19/25 for Hgb 7.4, now 8.2 Had colonoscopy [address] Ledesma, [facility]; no trouble with anesthesia Prediabetes: well controlled, on metformin PMF Active Problems Active Problems: All Active Problems (Updated 03/19/25 @ 22:40 by Bela Owen PA-C) Class 2 obesity (Acute) Depression (Acute) HLD (hyperlipidemia) (Acute) GERD (gastroesophageal reflux disease) (Acute) Borderline diabetes (Acute) Iron deficiency anemia (Acute) Diverticulitis of colon with perforation (Acute) Past Medical History Medical History Anxiety HTN (hypertension) Class 2 obesity Depression HLD (hyperlipidemia) GERD (gastroesophageal reflux disease) Borderline diabetes Iron deficiency anemia Diverticulitis of colon with perforation Functional capacity: independent ambulation Family History Family history of problems with anesthesia: No Surgical History Surgical History Status post surgical removal of malignant neoplasm of skin History of Problems with Anesthesia: No Social History Social History Patient Tobacco Use Status: Former Tobacco user Meds Allergies Allergy/AdvReac Type Severity Reaction Status Date / Time No Known Allergies (No Known Allergy Verified 03/20/25 10:00 Allergies*) Active Medications: Current Medications Acetaminophen (Acetaminophen 325 Mg Tablet) 650 mg PO Q6H PRN PRN Reason: Pain, Mild 1-3,fever,headache Last Admin: 03/20/25 06:07 Dose: 650 mg Atorvastatin Calcium (Atorvastatin Calcium 20 Mg Tablet) 20 mg PO BEDTIME [facility] Calcium Carbonate (Calcium Carbonate 750 Mg Tab.Chew) 750 mg PO Q4H PRN PRN Reason: Heartburn Dextrose (Dextrose 50 % 25 Gm/50 Ml Syringe) 25 gm IVPUSH Q15M PRN; Protocol PRN Reason: per Hypoglycemia Standing Ord. Escitalopram Oxalate (Escitalopram Oxalate 10 Mg Tablet) 10 mg PO BEDTIME [facility] Glucose (Glucose Gel 15 Gm Gel..Gram.) 15 gm PO Q15M PRN; Protocol PRN Reason: per Hypoglycemia Standing Ord. Heparin Sodium (Porcine) (Heparin Sodium,Porcine 5,000 Unit/Ml Vial) 5,000 unit SUBCUT Q8H [facility] Lactated Ringer's (Lr) 1,000 mls @ 80 mls/hr IVCONT .[id number] [facility] Last Admin: 03/20/25 06:10 Dose: 80 mls/hr Piperacillin Sod/Tazobactam (Sod 3.375 gm/ Sodium Chloride) 50 mls @ 100 mls/hr IV Q6H [facility] Last Infusion: 03/20/25 06:38 Dose: Infused Insulin Human Lispro (Insulin Lispro 100 Unit/Ml 3 Ml Vial) 0 unit SUBCUT Q6H [facility]; Protocol Last Admin: 03/20/25 06:12 Dose: Not Given Melatonin (Melatonin 3 Mg Tablet) 6 mg PO BEDTIME PRN PRN Reason: Insomnia Morphine Sulfate (Morphine Sulfate 4 Mg/Ml Cartridge) 3 mg IVPUSH Q4H PRN; Protocol PRN Reason: Pain, Severe (Pain Scale 7-10) Last Admin: 03/20/25 07:05 Dose: 3 mg Omeprazole (Omeprazole 20 Mg Capsule.Dr) 20 mg PO DAILY@1630 [facility] Ondansetron HCl (Ondansetron Hcl 4 Mg/2 Ml Vial) 4 mg IVPUSH Q8H PRN PRN Reason: Nausea and Vomiting Sodium Chloride (0.9 % Sodium Chloride Flush 3 Ml Syringe) [facility] Last Admin: 03/20/25 06:53 Dose: Not Given Valsartan (Valsartan 160 Mg Tablet) 160 mg PO DAILY [facility] Home Medications ?Medication ?Instructions ?Recorded ?Confirmed ?Last Taken ?Type acetaminophen 500 mg tablet 1,000 mg PO BID PRN Pain 0 03/19/25 03/19/25 Unknown History citalopram 20 mg tablet 20 mg PO BEDTIME 03/19/2503/18/25 History metformin 500 mg tablet,extended 500 mg PO BEDTIME 03/19/25 03/18/25 History release 24 hr olmesartan 40 mg tablet 40 mg PO BEDTIME 03/19/2503/18/25 History pantoprazole 40 mg tablet,delayed 40 mg PO DAILY@1630 03/19/25 03/19/25 03/18/25 History release rosuvastatin 10 mg tablet 10 mg PO BEDTIME 03/19/2503/18/25 History sennosides 8.6 mg tablet (senna) 17.6 mg PO BEDTIME [facility] N Constipation 03/19/25 03/19/25 Unknown History Exam Height,Weight and Vital Signs: Height 5 ft 2 in Weight 94 kg Last Vital Signs Temp 97.8 F 03/20/25 07:04 Pulse 78 03/20/25 07:04 Resp 18 03/20/25 07:04 BP 130/71 03/20/25 07:04 Pulse Ox 92 03/20/25 07:04 O2 Del Method Room Air 03/20/25 07:04 Pertinent Lab Results Pertinent Lab Results: Laboratory Tests 03/19/25 03/19/25 03/19/25 13:59 14:02 16:51 WBC 7.2 7.3 RBC 3.98 L 4.10 L Hgb 7.4 L 7.7 L Hct 25.8 L 26.3 L MCV 64.8 L 64.1 L MCH 18.6 L 18.8 L MCHC 28.7 L 29.3 L RDW 17.2 H 17.4 H Plt Count 492 H 501 H MPV 8.6 L 8.4 L Immature Gran % (Auto) 0.3 0.3 Neut % (Auto) 52.7 53.6 Lymph % (Auto) 25.7 28.3 [place] % (Auto) 18.9 H 15.6 H Eos % (Auto) 1.4 1.4 Baso % (Auto) 1.0 0.8 Lymph # (Auto) 1.8 2.1 [place] # (Auto) 1.4 H 1.1 Eos # (Auto) 0.1 0.1 Baso # (Auto) 0.1 0.1 Abs Immat Gran (auto) 0.02 0.02 Absolute Neuts (auto) 3.8 3.9 Absolute Nucleated RBC 0.000 0.000 Nucleated RBC % (auto) 0.0 0.0 Smear Tech's Comments Sodium 139 Potassium 3.7 Chloride 105 Carbon Dioxide 28 Anion Gap 10 L BUN 7 L Creatinine 0.52 Estim Creat Clear Calc 119.8 Estimated GFR > 60 POC Glucose Random Glucose 86 Calcium 8.5 Total Bilirubin 0.2 AST 14 ALT < 6 Alkaline Phosphatase 78 Total Protein 6.4 L Albumin 3.3 L Urine Color Yellow Urine Appearance Clear Urine pH 7.0 Ur Specific [place] 1.020 Urine Protein Trace Urine Glucose (UA) Negative Urine Ketones Negative Urine Blood Negative Urine Nitrite Negative Ur Leukocyte Esterase Trace H Urine RBC 0-2 Urine WBC 0-5 Ur Squamous Epith Cells 6-10 Urine Bacteria Trace Hyaline Casts 0-2 Blood Type O Positive Antibody Screen NEGATIVE Crossmatch See Detail 03/19/25 03/20/25 03/20/25 23:47 04:06 05:20 WBC 6.7 RBC 4.17 L Hgb 8.2 L Hct 27.1 L MCV 65.0 L MCH 19.7 L MCHC 30.3 L RDW 18.6 H Plt Count 442 H MPV 8.4 L Immature Gran % (Auto) 0.4 Neut % (Auto) 47.7 Lymph % (Auto) 28.3 [place] % (Auto) 20.2 H Eos % (Auto) 2.5 Baso % (Auto) 0.9 Lymph # (Auto) 1.9 [place] # (Auto) 1.4 H Eos # (Auto) 0.2 Baso # (Auto) 0.1 Abs Immat Gran (auto) 0.03 Absolute Neuts (auto) 3.2 Absolute Nucleated RBC 0.000 Nucleated RBC % (auto) 0.0 Smear Tech's Comments VERIFIED Sodium 141 Potassium 3.4 Chloride 106 Carbon Dioxide 26 Anion Gap 12 BUN 7 L Creatinine 0.52 Estim Creat Clear Calc 119.8 Estimated GFR > 60 POC Glucose 88 89 Random Glucose 84 Calcium 8.4 Total Bilirubin AST ALT Alkaline Phosphatase Total Protein Albumin Urine Color Urine Appearance Urine pH Ur Specific [place] Urine Protein Urine Glucose (UA) Urine Ketones Urine Blood Urine Nitrite Ur Leukocyte Esterase Urine RBC Urine WBC Ur Squamous Epith Cells Urine Bacteria Hyaline Casts Blood Type Antibody Screen Crossmatch 03/20/25 06:56 WBC RBC Hgb Hct MCV MCH MCHC RDW Plt Count MPV Immature Gran % (Auto) Neut % (Auto) Lymph % (Auto) [place] % (Auto) Eos % (Auto) Baso % (Auto) Lymph # (Auto) [place] # (Auto) Eos # (Auto) Baso # (Auto) Abs Immat Gran (auto) Absolute Neuts (auto) Absolute Nucleated RBC Nucleated RBC % (auto) Smear Tech's Comments Sodium Potassium Chloride Carbon Dioxide Anion Gap BUN Creatinine Estim Creat Clear Calc Estimated GFR POC Glucose 81 Random Glucose Calcium Total Bilirubin AST ALT Alkaline Phosphatase Total Protein Albumin Urine Color Urine Appearance Urine pH Ur Specific [place] Urine Protein Urine Glucose (UA) Urine Ketones Urine Blood Urine Nitrite Ur Leukocyte Esterase Urine RBC Urine WBC Ur Squamous Epith Cells Urine Bacteria Hyaline Casts Blood Type Antibody Screen Crossmatch Narrative Narrative: EKG 03/20/25 Vent. Rate : 84 BPM Atrial Rate : 84 BPM P-R Int : 138 ms QRS Dur : 78 ms QT Int : 372 ms P-R-T Axes : 44 -5 9 degrees QTcB Int : 439 ms Normal sinus rhythm Low voltage QRS Borderline ECG No previous ECGs available Airway Mallampati Class: II TM Dist: >3cm Neck ROM: Full Loose/Missing/Broken Teeth: No Heart: RRR Lungs: CTAB Assessment and Plan Final Anesthetic Review Family History of Problems with Anesthesia: No History of Problems with Anesthesia: No Documented by User: Lelia Sherwood MD 03/20/25 10:20 PMFSH Past Medical History Medical History Anxiety HTN (hypertension) Class 2 obesity Depression HLD (hyperlipidemia) GERD (gastroesophageal reflux disease) Borderline diabetes Iron deficiency anemia Diverticulitis of colon with perforation Surgical History Surgical History Status post surgical removal of malignant neoplasm of skin Social History Social History Patient Tobacco Use Status: Former Tobacco user Meds Allergies Allergy/AdvReac Type Severity Reaction Status Date / Time No Known Allergies (No Known Allergy Verified 03/20/25 10:00 Allergies*) Home Medications ?Medication ?Instructions ?Recorded ?Confirmed ?Last Taken ?Type acetaminophen 500 mg tablet 1,000 mg PO BID PRN Pain 0 03/19/25 03/19/25 Unknown History citalopram 20 mg tablet 20 mg PO BEDTIME 03/19/2503/18/25 History metformin 500 mg tablet,extended 500 mg PO BEDTIME 03/19/25 03/18/25 History release 24 hr olmesartan 40 mg tablet 40 mg PO BEDTIME 03/19/2503/18/25 History pantoprazole 40 mg tablet,delayed 40 mg PO DAILY@1630 03/19/25 03/19/25 03/18/25 History release rosuvastatin 10 mg tablet 10 mg PO BEDTIME 03/19/2503/18/25 History sennosides 8.6 mg tablet (senna) 17.6 mg PO BEDTIME CO N Constipation 03/19/25 03/19/25 Unknown History Assessment and Plan Assessment Anesthesia Assessment: Anesthesia Plan Discussed and Chart Reviewed Final Anesthetic Review NPO: Yes ASA Class: III Final Preanesthetic Review: No Changes in Pt Med Stat, Meds/Allgs Chart Reviewed, Consent Obtained/Reviewed and Anes Risks/Benef Reviewed Patient Risk: Intermediate Procedure Risk: Intermediate Anesthetic Plan Anesthetic Plan: GA, Regional Block and Agree w/ Assess. and Plan Disposition: Standard PACU
--- NOTE | 2025-03-20 08:19 | PM.PNGS ---
Subjective Subjective Date of Service: 03/20/25 <Silvia Benitez PA-C - Last Filed: 03/20/25 08:22> 03/20/25 <Declan Vaughan MD - Last Filed: 03/20/25 18:56> Interval history: Has persistent pain, relieved by analgesics. Denies nausea, vomiting. <Silvia Benitez PA-C - Last Filed: 03/20/25 08:22> Physical Exam Vital Signs: Vital Signs: Last Vital Signs Temp 97.8 F 03/20/25 07:04 Pulse 78 03/20/25 07:04 Resp 18 03/20/25 07:04 BP 130/71 03/20/25 07:04 Pulse Ox 92 03/20/25 07:04 O2 Del Method Room Air 03/20/25 07:04 BMI result Body Mass Index 37.9 <JADA De La Fuente Last Filed: 03/20/25 08:22> Const: General: comfortable, no acute distress and alert <Silvia Benitez PA-C - Last Filed: 03/20/25 08:22> Orientation/consciousness: patient oriented x3 <Silvia Benitez PA-C - Last Filed: 03/20/25 08:22> Resp: Effort & Inspection: normal respiratory effort <AJDA De La Fuente Last Filed: 03/20/25 08:22> GI: Inspection: Yes normal to inspection and No distended <Silvia Benitez PA-C - Last Filed: 03/20/25 08:22> Palpation (GI): Soft to palpation, Tenderness to palpation present (GI) (mild diffuse, more increased in LLQ/suprapubic ) with no rebound tenderness and no guarding <Silvia Benitez PA-C - Last Filed: 03/20/25 08:22> Percussion: Yes normal to percussion <JADA De La Fuente Last Filed: 03/20/25 08:22> Skin: General skin exam: no rashes or lesions noted <JADA De La Fuente Last Filed: 03/20/25 08:22> Neuro: General: patient oriented x3 and moves all extremities <Silvia Benitez PA-C - Last Filed: 03/20/25 08:22> Objective Data Active Medications Acetaminophen (Acetaminophen 325 Mg Tablet) 650 mg PO Q6H PRN PRN Reason: Pain, Mild 1-3,fever,headache Last Admin: 03/20/25 06:07 Dose: 650 mg Documented By: SHAISTA Atorvastatin Calcium (Atorvastatin Calcium 20 Mg Tablet) 20 mg PO BEDTIME [facility] Calcium Carbonate (Calcium Carbonate 750 Mg Tab.Chew) 750 mg PO Q4H PRN PRN Reason: Heartburn Dextrose (Dextrose 50 % 25 Gm/50 Ml Syringe) 25 gm IVPUSH Q15M PRN; Protocol PRN Reason: per Hypoglycemia Standing Ord. Escitalopram Oxalate (Escitalopram Oxalate 10 Mg Tablet) 10 mg PO BEDTIME [facility] Glucose (Glucose Gel 15 Gm Gel..Gram.) 15 gm PO Q15M PRN; Protocol PRN Reason: per Hypoglycemia Standing Ord. Heparin Sodium (Porcine) (Heparin Sodium,Porcine 5,000 Unit/Ml Vial) 5,000 unit SUBCUT Q8H [facility] Lactated Ringer's (Lr) 1,000 mls @ 80 mls/hr IVCONT .[id number] [facility] Last Admin: 03/20/25 06:10 Dose: 80 mls/hr Documented By: SHAISTA Piperacillin Sod/Tazobactam (Sod 3.375 gm/ Sodium Chloride) 50 mls @ 100 mls/hr IV Q6H [facility] Last Infusion: 03/20/25 06:38 Dose: Infused Documented By: SHAISTA Insulin Human Lispro (Insulin Lispro 100 Unit/Ml 3 Ml Vial) 0 unit SUBCUT Q6H [facility]; Protocol Last Admin: 03/20/25 06:12 Dose: Not Given Documented By: SHAISTA Non-Admin Reason: No Insulin Coverage Melatonin (Melatonin 3 Mg Tablet) 6 mg PO BEDTIME PRN PRN Reason: Insomnia Morphine Sulfate (Morphine Sulfate 4 Mg/Ml Cartridge) 3 mg IVPUSH Q4H PRN; Protocol PRN Reason: Pain, Severe (Pain Scale 7-10) Last Admin: 03/20/25 07:05 Dose: 3 mg Documented By: SUDARSHAN Omeprazole (Omeprazole 20 Mg Capsule.Dr) 20 mg PO DAILY@1630 [facility] Ondansetron HCl (Ondansetron Hcl 4 Mg/2 Ml Vial) 4 mg IVPUSH Q8H PRN PRN Reason: Nausea and Vomiting Sodium Chloride (0.9 % Sodium Chloride Flush 3 Ml Syringe) 3 ml IVFLUSH QSHIFT [facility] Last Admin: 03/20/25 06:53 Dose: Not Given Documented By: SUDARSHAN Non-Admin Reason: IV Running Valsartan (Valsartan 160 Mg Tablet) 160 mg PO DAILY [facility] <Silvia Benitez PA-C - Last Filed: 03/20/25 08:22> Labs CBC & Chem 7: 03/20/25 15:33 03/20/25 04:06 <Silvia Benitez PA-C - Last Filed: 03/20/25 08:22> Labs: Laboratory Results - last 24 hr 03/19/25 03/19/25 03/19/25 13:59 14:02 16:51 MCV 64.8 L 64.1 L MCH 18.6 L 18.8 L MCHC 28.7 L 29.3 L RDW 17.2 H 17.4 H Plt Count 492 H 501 H MPV 8.6 L 8.4 L Immature Gran % (Auto) 0.3 0.3 Neut % (Auto) 52.7 53.6 Lymph % (Auto) 25.7 28.3 [place] % (Auto) 18.9 H 15.6 H Eos % (Auto) 1.4 1.4 Baso % (Auto) 1.0 0.8 Lymph # (Auto) 1.8 2.1 [place] # (Auto) 1.4 H 1.1 Eos # (Auto) 0.1 0.1 Baso # (Auto) 0.1 0.1 Abs Immat Gran (auto) 0.02 0.02 Absolute Neuts (auto) 3.8 3.9 Absolute Nucleated RBC 0.000 0.000 Nucleated RBC % (auto) 0.0 0.0 Smear Tech's Comments Anion Gap 10 L Estim Creat Clear Calc 119.8 Estimated GFR > 60 POC Glucose Random Glucose 86 Calcium 8.5 Total Bilirubin 0.2 AST 14 ALT < 6 Alkaline Phosphatase 78 Total Protein 6.4 L Albumin 3.3 L Urine Color Yellow Urine Appearance Clear Urine pH 7.0 Ur Specific [place] 1.020 Urine Protein Trace Urine Glucose (UA) Negative Urine Ketones Negative Urine Blood Negative Urine Nitrite Negative Ur Leukocyte Esterase Trace H Urine RBC 0-2 Urine WBC 0-5 Ur Squamous Epith Cells 6-10 Urine Bacteria Trace Hyaline Casts 0-2 Blood Type O Positive Antibody Screen NEGATIVE Crossmatch See Detail 03/19/25 03/20/25 03/20/25 23:47 04:06 05:20 MCV 65.0 L MCH 19.7 L MCHC 30.3 L RDW 18.6 H Plt Count 442 H MPV 8.4 L Immature Gran % (Auto) 0.4 Neut % (Auto) 47.7 Lymph % (Auto) 28.3 [place] % (Auto) 20.2 H Eos % (Auto) 2.5 Baso % (Auto) 0.9 Lymph # (Auto) 1.9 [place] # (Auto) 1.4 H Eos # (Auto) 0.2 Baso # (Auto) 0.1 Abs Immat Gran (auto) 0.03 Absolute Neuts (auto) 3.2 Absolute Nucleated RBC 0.000 Nucleated RBC % (auto) 0.0 Smear Tech's Comments VERIFIED Anion Gap 12 Estim Creat Clear Calc 119.8 Estimated GFR > 60 POC Glucose 88 89 Random Glucose 84 Calcium 8.4 Total Bilirubin AST ALT Alkaline Phosphatase Total Protein Albumin Urine Color Urine Appearance Urine pH Ur Specific [place] Urine Protein Urine Glucose (UA) Urine Ketones Urine Blood Urine Nitrite Ur Leukocyte Esterase Urine RBC Urine WBC Ur Squamous Epith Cells Urine Bacteria Hyaline Casts Blood Type Antibody Screen Crossmatch 03/20/25 06:56 MCV MCH MCHC RDW Plt Count MPV Immature Gran % (Auto) Neut % (Auto) Lymph % (Auto) [place] % (Auto) Eos % (Auto) Baso % (Auto) Lymph # (Auto) [place] # (Auto) Eos # (Auto) Baso # (Auto) Abs Immat Gran (auto) Absolute Neuts (auto) Absolute Nucleated RBC Nucleated RBC % (auto) Smear Tech's Comments Anion Gap Estim Creat Clear Calc Estimated GFR POC Glucose 81 Random Glucose Calcium Total Bilirubin AST ALT Alkaline Phosphatase Total Protein Albumin Urine Color Urine Appearance Urine pH Ur Specific [place] Urine Protein Urine Glucose (UA) Urine Ketones Urine Blood Urine Nitrite Ur Leukocyte Esterase Urine RBC Urine WBC Ur Squamous Epith Cells Urine Bacteria Hyaline Casts Blood Type Antibody Screen Crossmatch <Silvia Benitez PA-C - Last Filed: 03/20/25 08:22> Procedures Date of Service Date of Service: 03/20/25 <Silvia Benitez PA-C - Last Filed: 03/20/25 08:22> 03/20/25 <Declan Vaughan MD - Last Filed: 03/20/25 18:56> Progress Note: A&P Assessment and plan (1) Diverticulitis of colon with perforation: Status: Acute <Silvia Benitez PA-C - Last Filed: 03/20/25 08:22> Assessment and Plan: With a large contained perforation in the sigmoid which seems to contain stools - not likely to resolve with CT drain Plan to do hand assisted laparoscopic sigmoid resection with colostomy today She understands the technique of the planned procedure Family is involved with the discussion Consent has been given <Declan Vaughan MD - Last Filed: 03/20/25 18:56> Assessment and Plan: Admitted with sigmoid diverticulitis with large abscess. Will need to proceed with SHAHZAD sigmoid resection, likely colostomy today. Cont IVF, IV zosyn, NPO status for now. Patient understands and is comfortable with plan. <Silvia Benitez PA-C - Last Filed: 03/20/25 08:22> Time Spent With Patient Time: Total time managing care of this patient today ____ minutes. <Silvia Benitez PA-C - Last Filed: 03/20/25 08:22> Quality Stroke Does the patient have a stroke diagnosis?: No <Silvia Benitez PA-C - Last Filed: 03/20/25 08:22> VTE Prior VTE?: No <Silvia Benitez PA-C - Last Filed: 03/20/25 08:22> VTE Risk Level:: Medical - moderate - high <Silvia Benitez PA-C - Last Filed: 03/20/25 08:22> VTE Device Contraindication: N/A - Device Ordered <Silvia Benitez PA-C - Last Filed: 03/20/25 08:22> VTE Drug Contraindication: N/A - Med Ordered <Silvia Benitez PA-C - Last Filed: 03/20/25 08:22>
--- NOTE | 2025-03-20 08:22 | P.PNGS_ITS ---
Subjective Subjective Date of Service: 03/20/25 Interval history: ?sore? on lower abdomen No fever Nausea or vomiting No events overnight Physical Exam 2 Vital Signs: Vital Signs: Last Vital Signs Temp 98.2 F 03/20/25 08:21 Pulse 76 03/20/25 08:21 Resp 18 03/20/25 08:21 BP 118/58 L 03/20/25 08:21 Pulse Ox 94 03/20/25 08:21 O2 Del Method Room Air 03/20/25 08:21 BMI result Body Mass Index 37.9 Const: General: comfortable and no acute distress Resp: Effort & Inspection: normal respiratory effort Cardio: Rate: regular rate GI: Palpation (GI): Soft to palpation, not firm, Tenderness to palpation present (GI) (Some tenderness in the lower abdomen) and no guarding Objective Data Active Medications Acetaminophen (Acetaminophen 325 Mg Tablet) 650 mg PO Q6H PRN PRN Reason: Pain, Mild 1-3,fever,headache Last Admin: 03/20/25 06:07 Dose: 650 mg Documented By: SHAISTA Atorvastatin Calcium (Atorvastatin Calcium 20 Mg Tablet) 20 mg PO BEDTIME SHAE Calcium Carbonate (Calcium Carbonate 750 Mg Tab.Chew) 750 mg PO Q4H PRN PRN Reason: Heartburn Dextrose (Dextrose 50 % 25 Gm/50 Ml Syringe) 25 gm IVPUSH Q15M PRN; Protocol PRN Reason: per Hypoglycemia Standing Ord. Escitalopram Oxalate (Escitalopram Oxalate 10 Mg Tablet) 10 mg PO BEDTIME SHAE Glucose (Glucose Gel 15 Gm Gel..Gram.) 15 gm PO Q15M PRN; Protocol PRN Reason: per Hypoglycemia Standing Ord. Heparin Sodium (Porcine) (Heparin Sodium,Porcine 5,000 Unit/Ml Vial) 5,000 unit SUBCUT Q8H [facility] Lactated Ringer's (Lr) 1,000 mls @ 80 mls/hr IVCONT .[id number] [facility] Last Admin: 03/20/25 06:10 Dose: 80 mls/hr Documented By: SHAISTA Piperacillin Sod/Tazobactam (Sod 3.375 gm/ Sodium Chloride) 50 mls @ 100 mls/hr IV Q6H [facility] Last Infusion: 03/20/25 06:38 Dose: Infused Documented By: SHAISTA Insulin Human Lispro (Insulin Lispro 100 Unit/Ml 3 Ml Vial) 0 unit SUBCUT Q6H [facility]; Protocol Last Admin: 03/20/25 06:12 Dose: Not Given Documented By: SHAISTA Non-Admin Reason: No Insulin Coverage Melatonin (Melatonin 3 Mg Tablet) 6 mg PO BEDTIME PRN PRN Reason: Insomnia Morphine Sulfate (Morphine Sulfate 4 Mg/Ml Cartridge) 3 mg IVPUSH Q4H PRN; Protocol PRN Reason: Pain, Severe (Pain Scale 7-10) Last Admin: 03/20/25 07:05 Dose: 3 mg Documented By: SUDARSHAN Omeprazole (Omeprazole 20 Mg Capsule.Dr) 20 mg PO DAILY@1630 [facility] Ondansetron HCl (Ondansetron Hcl 4 Mg/2 Ml Vial) 4 mg IVPUSH Q8H PRN PRN Reason: Nausea and Vomiting Sodium Chloride (0.9 % Sodium Chloride Flush 3 Ml Syringe) 3 ml IVFLUSH QSHIFT [facility] Last Admin: 03/20/25 06:53 Dose: Not Given Documented By: SUDARSHAN Non-Admin Reason: IV Running Valsartan (Valsartan 160 Mg Tablet) 160 mg PO DAILY [facility] Labs 03/20/25 15:33 03/20/25 04:06 Labs: Laboratory Results - last 24 hr 03/19/25 03/19/25 03/19/25 13:59 14:02 16:51 MCV 64.8 L 64.1 L MCH 18.6 L 18.8 L MCHC 28.7 L 29.3 L RDW 17.2 H 17.4 H Plt Count 492 H 501 H MPV 8.6 L 8.4 L Immature Gran % (Auto) 0.3 0.3 Neut % (Auto) 52.7 53.6 Lymph % (Auto) 25.7 28.3 [place] % (Auto) 18.9 H 15.6 H Eos % (Auto) 1.4 1.4 Baso % (Auto) 1.0 0.8 Lymph # (Auto) 1.8 2.1 [place] # (Auto) 1.4 H 1.1 Eos # (Auto) 0.1 0.1 Baso # (Auto) 0.1 0.1 Abs Immat Gran (auto) 0.02 0.02 Absolute Neuts (auto) 3.8 3.9 Absolute Nucleated RBC 0.000 0.000 Nucleated RBC % (auto) 0.0 0.0 Smear Tech's Comments Anion Gap 10 L Estim Creat Clear Calc 119.8 Estimated GFR > 60 POC Glucose Random Glucose 86 Calcium 8.5 Total Bilirubin 0.2 AST 14 ALT < 6 Alkaline Phosphatase 78 Total Protein 6.4 L Albumin 3.3 L Urine Color Yellow Urine Appearance Clear Urine pH 7.0 Ur Specific [place] 1.020 Urine Protein Trace Urine Glucose (UA) Negative Urine Ketones Negative Urine Blood Negative Urine Nitrite Negative Ur Leukocyte Esterase Trace H Urine RBC 0-2 Urine WBC 0-5 Ur Squamous Epith Cells 6-10 Urine Bacteria Trace Hyaline Casts 0-2 Blood Type O Positive Antibody Screen NEGATIVE Crossmatch See Detail 03/19/25 03/20/25 03/20/25 23:47 04:06 05:20 MCV 65.0 L MCH 19.7 L MCHC 30.3 L RDW 18.6 H Plt Count 442 H MPV 8.4 L Immature Gran % (Auto) 0.4 Neut % (Auto) 47.7 Lymph % (Auto) 28.3 [place] % (Auto) 20.2 H Eos % (Auto) 2.5 Baso % (Auto) 0.9 Lymph # (Auto) 1.9 [place] # (Auto) 1.4 H Eos # (Auto) 0.2 Baso # (Auto) 0.1 Abs Immat Gran (auto) 0.03 Absolute Neuts (auto) 3.2 Absolute Nucleated RBC 0.000 Nucleated RBC % (auto) 0.0 Smear Tech's Comments VERIFIED Anion Gap 12 Estim Creat Clear Calc 119.8 Estimated GFR > 60 POC Glucose 88 89 Random Glucose 84 Calcium 8.4 Total Bilirubin AST ALT Alkaline Phosphatase Total Protein Albumin Urine Color Urine Appearance Urine pH Ur Specific [place] Urine Protein Urine Glucose (UA) Urine Ketones Urine Blood Urine Nitrite Ur Leukocyte Esterase Urine RBC Urine WBC Ur Squamous Epith Cells Urine Bacteria Hyaline Casts Blood Type Antibody Screen Crossmatch 03/20/25 06:56 MCV MCH MCHC RDW Plt Count MPV Immature Gran % (Auto) Neut % (Auto) Lymph % (Auto) [place] % (Auto) Eos % (Auto) Baso % (Auto) Lymph # (Auto) [place] # (Auto) Eos # (Auto) Baso # (Auto) Abs Immat Gran (auto) Absolute Neuts (auto) Absolute Nucleated RBC Nucleated RBC % (auto) Smear Tech's Comments Anion Gap Estim Creat Clear Calc Estimated GFR POC Glucose 81 Random Glucose Calcium Total Bilirubin AST ALT Alkaline Phosphatase Total Protein Albumin Urine Color Urine Appearance Urine pH Ur Specific [place] Urine Protein Urine Glucose (UA) Urine Ketones Urine Blood Urine Nitrite Ur Leukocyte Esterase Urine RBC Urine WBC Ur Squamous Epith Cells Urine Bacteria Hyaline Casts Blood Type Antibody Screen Crossmatch Procedures Date of Service Date of Service: 03/20/25 Progress Note: A&P Assessment and plan (1) Diverticulitis of colon with perforation: Status: Acute Assessment and Plan: With a large contained perforation in the sigmoid which seems to contain stools - not likely to resolve with CT drain Plan to do hand assisted laparoscopic sigmoid resection with colostomy today He understands the technique of the planned procedure She is aware of the risks, benefits, and alternatives as discussed extensively yesterday Time Spent With Patient Time: Total time managing care of this patient today ____ minutes. Quality VTE VTE Risk Level:: Medical - moderate - high VTE Device Contraindication: N/A - Device Ordered VTE Drug Contraindication: N/A - Med Ordered
--- NOTE | 2025-03-20 09:35 | PC.NURSE ---
LR paused for OR transport, Family to hold onto pt belongings while in surgery to bring to assigned room post procedure.
--- NOTE | 2025-03-20 09:49 | PC.NURSE ---
Pt has two IVs present in her left arm; #20 AC, #20 Left wrist. Both IVs patent, clean, dry intact.
--- NOTE | 2025-03-20 10:00 | HO.WOUND ---
Ostomy Site Marking 64 year old female admitted to [facility] [place] on 03/19/25 - see H&p for detailed history. Ostomy consult placed for pre-op site marking in ED. Patient seen in the ED for brief pre-operative ostomy teaching and stoma site selection/marking. ?The patient was instructed in very basic GI anatomy and stoma creation, and teaching to be available after surgery should a stoma be created. ?Throughout the visit the patient has questions related to the ostomy and future care of the ostomy. ?Instruction was given on the purpose of pre-operative stoma site selection and marking: ?the importance of identifying a location within sight, avoiding creases on a relatively flat area of the abdomen, and siting within the large muscle of the abdomen for support. She agreed with the procedure. The patient's abdomen was visualized and palpated in the sitting, standing, bending, and lying positions. ?The margins of the rectus abdominis muscles were identified, and sites were marked in the RUQ and LUQ within the margins. ?The patients pant location was taken into consideration when marking. ?She has a horizontal crease at the umbilicus and she was marked accordingly - I also took into consideration a midline incision and marked accordingly for surgeon visibility in the OR. The sites were cleansed with alcohol prep pads before marking, marked with sterile surgical marker, and covered with tegaderms. ? Inpatient ostomy nurse will follow along for need for teaching. Thank you.
[2025-03-20 10:07] LABS: Glucose, Whole Blood 81 mg/dL (60-115)
--- NOTE | 2025-03-20 10:12 | HO.OSTOMY ---
Ostomy Site Marking 64 year old [place] [facility] [place] - see H&p for detailed history. Ostomy consult placed for pre-op site marking in ED. Patient seen in the ED for brief pre-operative ostomy teaching and stoma site selection/marking. ?The patient was instructed in very basic GI anatomy and stoma creation, and teaching to be available after surgery should a stoma be created. ?Throughout the visit the patient has questions related to the ostomy and future care of the ostomy. ?Instruction was given on the purpose of pre-operative stoma site selection and marking: ?the importance of identifying a location within sight, avoiding creases on a relatively flat area of the abdomen, and siting within the large muscle of the abdomen for support. She agreed with the procedure. The patient's abdomen was visualized and palpated in the sitting, standing, bending, and lying positions. ?The margins of the rectus abdominis muscles were identified, and sites were marked in the RUQ and LUQ within the margins. ?The patients pant location was taken into consideration when marking. ?She has a horizontal crease at the umbilicus and she was marked accordingly - I also took into consideration a midline incision and marked accordingly for surgeon visibility in the OR. The sites were cleansed with alcohol prep pads before marking, marked with sterile surgical marker, and covered with tegaderms. ? Inpatient ostomy nurse will follow along for need for teaching. Thank you.
--- NOTE | 2025-03-20 10:22 | MHC.CM.PN ---
PT REPORTS SHE LIVES WITH HER SON, DAUGHTER, DAUGHTERS SHARON AND THEIR 3 THREE KIDS. SHE IS INDEPENDENT WITH CARE, HAS NO DME OR SERVICES SAYS SHE HAS A HCP, COPY REQUESTED PCP: ANN MARIE CULLEN DCP: HOME VIA SELF ARRANGED TRANSPORT
[2025-03-20 13:46] LABS: Base Excess Bedside Calculated 2 mmol/L (-3-3); Glucose, i-STAT 134 mg/dL (60-115); HCO3 Bedside Calculated 27 mmol/L (22-26); Hematocrit Bedside 26 %PCV (37-47); Hemoglobin Bedside 8.8 g/dL (12.0-16.0); Potassium Bedside 3.7 mmol/L (3.3-5.1); SO2 Bedside Calculated 90 %; Sodium Bedside 136 mmol/L (135-145); TCO2 Bedside 28 mmol/L (24-29); pCO2 Bedside 44 mmhg (35-48); pH Bedside 7.39 (7.35-7.45); pO2 Bedside 59 mmhg (83-108)
--- NOTE | 2025-03-20 15:43 | P.OP_ITS ---
Operative Note Operative Note Date of Service: 03/20/25 Narrative: Preop diagnosis: Sigmoid diverticulitis with contained perforation Postop diagnosis: Sigmoid diverticulitis, with large contained perforation; severe phlegmonous process with a large cavity with thick rind containing stool was very adherent to the sigmoid with a large fistulous tract; bladder was markedly adherent to this large cavity; Procedure: Hand assisted laparoscopic resection of the sigmoid, resection of a large cavity containing stool, with a fistulous tract to the sigmoid, extensive lysis of adhesions; extensive dissection of the cavity and sigmoid off of the bladder wall, with repair of a large tear on the bladder wall, end colostomy from the remaining sigmoid Surgeon: Declan Vaughan MD respiratory therapist assistant: MARIELA Benitez Intraop consultation: Dr. Dom Brody of Urology The patient is a 64 year old female admitted for a 2 week history of lower abdominal pain. Her CAT scan showed this large cavity in the pelvis the patient to inflamed sigmoid consistent with a contained perforation. This cavity seemed to contain stool so I had scheduled her for resection. She understood the technique of the planned procedure as was the risks, benefits, and alternatives She was brought to the operating room. She was placed in modified lithotomy position under general anesthesia via endotracheal tube. The abdomen and the perineum were prepped and draped in usual sterile fashion. A Saleem catheter had been inserted area. Surgical time-out was done. The patient was receiving IV Zosyn as scheduled I made a short midline incision on the skin on lower abdomen using a blade 15. And this was carried down through the thick pannus to expose the fascia. The fascia was incised. The peritoneum was entered. The GelPort and the this has wound retractor were positioned. We insufflated to a pressure of 15 mm Hg. With laparoscopic visualization using a port through the GelPort with the 10 mm 30 degree scope, I proceeded to insert a 5/12 mm port in the epigastric area. A 2nd port was placed at the right lower quadrant through a small stab incision as well The patient was then placed in a steep head-down position. The laparoscope was positioned through the epigastric port. With laparoscopic visualization, reflected all the bowel loops away from the pelvis. We could immediately see a large phlegmonous area deep pelvis occupying the entire pelvic cavity. I was able to follow the sigmoid from proximal to distal. The sigmoid was markedly distended as well suggestive of distal obstruction in the phlegmonous area. I could not separate the sigmoid from this phlegmonous area in the pelvis. I therefore proceeded to mobilize the sigmoid and the left colon using the LigaSure along the white line of [place]. I continued to separate the sigmoid from the retroperitoneum and by doing so, this allowed us to follow up this all the way into the this. I attempted to dissect this large phlegmonous mass in the pelvis with a combination of blunt dissection with the finger as well as with the LigaSure. However, the planes were not defined at all on anywhere surrounding this area. We therefore had to do a careful dissection with the LigaSure and blunt dissection with the tip of the learning disabled teacher to see if we could separate phlegmonous process from the pelvic sidewall and the bladder. Eventually, but some point, we were able to achieve some degree of mobilization on both the left and right side of this phlegmonous process. This was not separable from the sigmoid at all. This part of the dissection took an extended period of time. At some point, we were trying to separate dissect anteriorly but despite careful dissection, we entered the lumen of the bladder as this appeared to be unavoidable in view of the severe inflammatory process with dense adhesions. We could see the tear in the bladder wall. We therefore asked Dr. Brody of urology to do an intraop consultation We continued to separate the sigmoid colon in the pelvis off of the anterior pelvis using careful dissection LigaSure as well as a finger fracture technique. This part of the procedure took an extended period of time. We used the same manner of dissection on both the left and right side of the phlegmonous process until I was able to achieve some identification of the mesentery. We decided to transect the distal sigmoid from this phlegmonous process to see if we can achieve better exposure. I created a mesenteric window and divided the dilated sigmoid near the phlegmonous process using multiple firings of the Endo-RASHMI stapler I then proceeded to divide the mesentery of the distal sigmoid with the LigaSure to allow us some mobilization but at some point, we could not separate this from the entire phlegmonous process Therefore decided to proceed with an open dissection to allow us better visualization and exposure, as well as to allow us to see the entire tear of the bladder wall I desufflated. I extended my low pelvic excision inferiorly. This was extended down through the fascia. We applied the Bookwalter retractors Able to pull and retract the identified sigmoid. We used the right angle clamp to fully dissect the phlegmonous process from the rest of the pelvis. At some point, we were entered this large cavity containing stool. This was surrounded by a thick rind of chronically inflamed tissue. This was filled with stool particles. By palpating for this large cavity, as able to feel the fistula tract entering into the sigmoid. To be able to separate this large cavity from the the sigmoid from the bladder and the entire pelvis, we also had to resect this large cavity. I had to divide the thick rind using the cautery and LigaSure. This part of the procedure took an extended period of time in view of the very thickened wall of this cavity. This was therefore consistent with a contained perforation with stool contents We continued to do extensive dissection of this thick wall of the large contained perforation and this allowed us to separate this entire phlegmonous material from the bladder. This allowed us to also identify an area distal to the phlegmonous process to allow transection. Everything was still stuck in the pelvis and this did not allow us to use a stapler to transect distal to this phlegmonous process so I retracted the identifiable sigmoid and divided the sigmoid distal to this phlegmon with electrocautery. We closed the stump with a running Prolene stitch We then proceeded to complete resection of this entire phlegmonous process by dividing the remaining attachments from the posterior pelvis and around this with LigaSure until we are able to deliver this specimen We copiously irrigated We then proceeded to close the long tear of the bladder wall. We aligned the identifiable the edges together. We used a Polysorb 3-0 stitch to close this large tear. This was tested with multiple injections of methylene blue through the Saleem catheter. This has some leakage on 1 area which we controlled with multiple [id number] sutures Some point, the repair of the bladder appeared to hold despite containing wanted 80 cc of methylene blue We then proceeded to copiously irrigate. We suctioned out the irrigant fluid We then mobilize the remaining sigmoid some more to allow this to reach the abdominal wall for our stoma I excised the discoid piece of skin from the left lower quadrant I then proceeded to divide through the thick abdominal wall fat and anterior fascia. I the rectus to create our stoma opening. We dilated this to 4 of my fingers We pulled up the stump of the proximal sigmoid through this stoma opening. We matured the stoma and used Polysorb 3-0 sutures circumferentially through the full-thickness of the bowel wall and to the subdermal layer. The stoma was viable, and appeared well vascularized with note of arterial bleeders which we controlled I palpated the stoma opening through the fascial level and this was patent We again copiously irrigated the pelvis. We observed for hemostasis. We positioned a NADINE drain into the pelvis and this was brought out through the right lower quadrant incision. This was secured with nylon 3-0 sutures to the skin as anchoring sutures Once hemostasis was confirmed on the pelvis, I proceeded to then close the fascia with a running [place] 1 stitch. Laparoscopic examination of the fascial closure was done and there were no bowel loops caught by the sutures The last port was then removed after desufflation Skin closure was achieved on all incisions with skin per. I positioned iodoform packing in between the per feels on the midline incision. Dressings were applied .The stoma appliance was placed and the procedure was completed A tap block and rectus sheath block was then done by the anesthesiologist The patient tolerated procedure well. There were no immediate complications. Initial and final counts of sponges and instruments were correct. Estimated blood loss was about three hundred cc. The patient is extubated without difficulty and transferred to the recovery room with stable vital signs
[2025-03-20 15:44] LABS: Glucose, Whole Blood 139 mg/dL (60-115)
[2025-03-20 16:32] LABS: MANUAL DIFF FLAG NO
[2025-03-20 16:38] LABS: Hematocrit 27.0 % (37.0-47.0); Hemoglobin 7.9 g/dl (12.0-16.0); Imm Gran Abs Auto 0.05 X10*3/uL (0.00-0.03); Imm Gran Pct Auto 0.6 % (0.0-0.4); Lymphocytes Absolute Auto 0.4 X10*3/uL (1.2-4.9); Mean Corpuscular HGB Conc 29.3 g/dl (31.0-35.0); Mean Corpuscular Hemoglobin 19.6 pg (27.0-33.0); Mean Corpuscular Volume 67.0 fL (80.0-98.0); NRBC Abs Auto 0.000 X10*3/uL (0.0-0.012); NRBC Pct Auto 0.0 /100WBC (0.0-0.2); Platelet Count 530 X10*3/uL (160-400); Red Blood Count 4.03 X10*6/uL (4.20-5.50); White Blood Count 8.2 X10*3/uL (4.8-10.8)
--- NOTE | 2025-03-20 17:18 | P.OP_ITS ---
Operative Note Operative Note Date of Service: 03/20/25 Narrative: PreOperative Diagnosis: Bladder laceration Post Operative Diagnosis: Bladder laceration Procedure: Open closure of bladder laceration Surgeon: Dr Dom Brody Wharf Worker: Dr Vaughan Anesthesia: General Indications for procedure: 64-year-old female Present through emergency room with lower abdominal pain On imaging found to have significant diverticular phlegmon in the pelvis abutting her bladder A decision was made to proceed with laparoscopic hand assist sigmoid colectomy and cover colostomy. She understood the procedure may involve transitioned to open surgery. Intraoperative consultation placed by Dr. Vaughan. The phlegmon was significantly adhered to the posterior bladder wall. During resection a small hole be noted on the bladder. They were unable to continue to proceed with laparoscopic surgery and a decision was made to transition to open removal. With the transitioned to open surgery the bladder laceration expanded during control and removal of the infected anti-inflammatory diverticular phlegmon. Please see Dr. Vaughan's operative note for full description of for sigmoid and sigmoid removal with colostomy creation Procedure: After informed consent was verified the patient was brought to the operating room and placed in a supine position. Anesthesia was administered per protocol. The patient was prepped and draped in a sterile fashion. Safety pause time-out was performed. Antibiotics being given. After removal of the inflammatory phlegmon and attention was directed toward closure of the bladder laceration. Edges of the bladder laceration were identified and clamped with a combination of [place] clamps. Using 3-0 Vicryl continuous closure was made of the bladder laceration which was approximately 12 cm in diameter. Full-thickness bites were taken. After closure had been made the bladder was filled with 100 60 cc of normal saline dyed with methylene blue. A small leak was seen at 1 corner of the closure. [id number] sutures were placed which effectively managed the leakage. A 2nd layer of tissue was brought across our initial incision to aid with further healing. Saleem catheter will remain for 4 weeks before cystogram performed and removal in the office. Pathology: [] Drains: []
--- NOTE | 2025-03-20 18:59 | PM.EVENT ---
Event Note Date of Service: 03/21/25 Event Note: Seen postop Appears comfortable with adequate pain control Had transient amputation earlier in PACU but now stable vital signs Good urine output - clear Stoma already with stools Pain management Family updated Time Spent With Patient Time: Total time managing care of this patient today ____ minutes.
[2025-03-20 20:12] LABS: Glucose, Whole Blood 166 mg/dL (60-115)
--- NOTE | 2025-03-20 20:28 | HO.PM.IMPN ---
Subjective Subjective Date of Service: 03/20/25 Interval History: s/p hand assisted laparoscopic resection of the sigmoid, resection of a large cavity containing stool, with a fistulous tract to the sigmoid, extensive lysis of adhesions; extensive dissection of the cavity and sigmoid off of the bladder wall, with repair of a large tear on the bladder wall, end colostomy from the remaining sigmoid pt in PACU majority of day, night rounding done feeling ok, mild nausea chronic low back pain bothering her, feels at baseline Constitutional Constitutional: Denies chills, Reports fatigue, Denies fever(s) and Denies headache(s) Eyes Eyes: Denies change in vision ENT Ears, Nose, Mouth, and Throat: Denies headache(s), Denies nasal congestion and Denies sore throat Cardiovascular Cardiovascular: Denies chest pain, Denies rapid heart rate, Denies leg edema, Denies lightheadedness and Denies dyspnea Respiratory Respiratory: Denies cough, Denies dyspnea and Denies wheezing Gastrointestinal Gastrointestinal: Reports as per HPI Genitourinary Genitourinary: Denies hematuria Musculoskeletal Musculoskeletal: Reports back pain Integumentary/Breasts Skin/Breast: Denies rash Neurologic Neurologic: Denies confusion and Denies headache(s) Psychiatric Psychiatric: Denies confusion Endocrine Endocrine: Reports fatigue Hematologic/Lymphatic Hematologic/Lymphatic: Denies easy bleeding Allergic/Immunologic Allergic/Immunologic: Denies wheezing Physical Exam Exam: Exam: General: AOx3, no acute distress Resp: CTA bilaterally CVS: S1, S2, RRR GI/: +BS, stoma dark brown stools, no thomas blood. clear urine output from ortiz Skin: Warm, dry Neuro: Cranial nerves II-XII grossly intact bilaterally. Motor grossly intact bilaterally Extremities: No pitting edema Psych: Appropriate affect Vital Signs: Vital Signs: Last Vital Signs Temp 98 F 03/20/25 18:45 Pulse 100 03/20/25 19:30 Resp 16 03/20/25 19:30 BP 105/46 L 03/20/25 19:30 Pulse Ox 93 03/20/25 19:30 O2 Del Method Room Air 03/20/25 19:30 O2 Flow Rate 2 03/20/25 19:30 BMI result Body Mass Index 41.6 Const: General: No confusion Orientation/consciousness: No confusion Neuro: General: No confusion Objective Data Active Medications Atorvastatin Calcium (Atorvastatin Calcium 20 Mg Tablet) 20 mg PO BEDTIME SHAE Calcium Carbonate (Calcium Carbonate 750 Mg Tab.Chew) 750 mg PO Q4H PRN PRN Reason: Heartburn Dextrose (Dextrose 50 % 25 Gm/50 Ml Syringe) 25 gm IVPUSH Q15M PRN; Protocol PRN Reason: per Hypoglycemia Standing Ord. Escitalopram Oxalate (Escitalopram Oxalate 10 Mg Tablet) 10 mg PO BEDTIME SHAE Glucose (Glucose Gel 15 Gm Gel..Gram.) 15 gm PO Q15M PRN; Protocol PRN Reason: per Hypoglycemia Standing Ord. Hydromorphone HCl (Hydromorphone Hcl 0.5 Mg/0.5 Ml Syringe) 0.5 mg IVPUSH Q5M PRN PRN Reason: Pain, Moderate to Severe (Pain Scale 4-10) Stop: 03/20/25 22:55 Last Admin: 03/20/25 19:20 Dose: 0.25 mg Documented By: TJ Comments: as discussed and consisitent with earlier patient response and charting as discussed with Ziedel Lactated Ringer's (Lr) 1,000 mls @ 80 mls/hr IVCONT .[id number] [facility] Last Admin: 03/20/25 19:59 Dose: 80 mls/hr Documented By: ANTOIC Piperacillin Sod/Tazobactam (Sod 3.375 gm/ Sodium Chloride) 50 mls @ 100 mls/hr IV Q6H [facility] Last Admin: 03/20/25 19:47 Dose: Not Given Documented By: ANTOIC Non-Admin Reason: Off Unit: Surgery Acetaminophen (Ofirmev) 1,000 mg in 100 mls @ 400 mls/hr IV Q6H [facility] Last Infusion: 03/20/25 20:18 Dose: Infused Documented By: ROBERT Insulin Human Lispro (Insulin Lispro 100 Unit/Ml 3 Ml Vial) 0 unit SUBCUT Q6H [facility]; Protocol Last Admin: 03/20/25 20:17 Dose: Not Given Documented By: ANTOIC Non-Admin Reason: Patient Refused Melatonin (Melatonin 3 Mg Tablet) 6 mg PO BEDTIME PRN PRN Reason: Insomnia Morphine Sulfate (Morphine Sulfate 4 Mg/Ml Cartridge) 4 mg IVPUSH Q4H PRN; Protocol PRN Reason: Pain, Severe (Pain Scale 7-10) Omeprazole (Omeprazole 20 Mg Capsule.Dr) 20 mg PO DAILY@1630 [facility] Last Admin: 03/20/25 19:41 Dose: Not Given Documented By: ROBERT Non-Admin Reason: Off Unit: Surgery Ondansetron HCl (Ondansetron Hcl 4 Mg/2 Ml Vial) 4 mg IVPUSH Q8H PRN PRN Reason: Nausea and Vomiting Oxycodone HCl (Oxycodone Hcl Immed Release 5 Mg Tablet) 5 mg PO Q4H PRN PRN Reason: Pain, Moderate(Pain Scale 4-6) Sodium Chloride (0.9 % Sodium Chloride Flush 3 Ml Syringe) 3 ml IVFLUSH QSHIFT [facility] Last Admin: 03/20/25 19:41 Dose: Not Given Documented By: ROBERT Non-Admin Reason: Off Unit: Surgery Valsartan (Valsartan 160 Mg Tablet) 160 mg PO DAILY [facility] Last Admin: 03/20/25 08:45 Dose: 160 mg Documented By: SUDARSHAN Labs 03/20/25 15:33 03/20/25 04:06 Labs: Laboratory Results - last 24 hr 03/19/25 03/19/25 03/19/25 14:02 16:51 23:47 POC Hgb (Calc) POC Hct MCV MCH MCHC RDW Plt Count MPV Immature Gran % (Auto) Neut % (Auto) Lymph % (Auto) [place] % (Auto) Eos % (Auto) Baso % (Auto) Lymph # (Auto) [place] # (Auto) Eos # (Auto) Baso # (Auto) Abs Immat Gran (auto) Absolute Neuts (auto) Absolute Nucleated RBC Nucleated RBC % (auto) Smear Tech's Comments Smear Path Review SEE NOTE POC Std Base Excess POC O2 Sat (Calc) POC ABG pO2 POC ABG Total CO2 POC Capillary pH POC Capillary pCO2 POC Cap HCO3 (Calc) POC Sodium POC Potassium Anion Gap Estim Creat Clear Calc Estimated GFR POC Glucose 88 Random Glucose Calcium Blood Type O Positive Antibody Screen NEGATIVE Crossmatch See Detail 03/20/25 03/20/25 03/20/25 04:06 05:20 06:56 POC Hgb (Calc) POC Hct MCV 65.0 L MCH 19.7 L MCHC 30.3 L RDW 18.6 H Plt Count 442 H MPV 8.4 L Immature Gran % (Auto) 0.4 Neut % (Auto) 47.7 Lymph % (Auto) 28.3 [place] % (Auto) 20.2 H Eos % (Auto) 2.5 Baso % (Auto) 0.9 Lymph # (Auto) 1.9 [place] # (Auto) 1.4 H Eos # (Auto) 0.2 Baso # (Auto) 0.1 Abs Immat Gran (auto) 0.03 Absolute Neuts (auto) 3.2 Absolute Nucleated RBC 0.000 Nucleated RBC % (auto) 0.0 Smear Tech's Comments VERIFIED Smear Path Review POC Std Base Excess POC O2 Sat (Calc) POC ABG pO2 POC ABG Total CO2 POC Capillary pH POC Capillary pCO2 POC Cap HCO3 (Calc) POC Sodium POC Potassium Anion Gap 12 Estim Creat Clear Calc 119.8 Estimated GFR > 60 POC Glucose 89 81 Random Glucose 84 Calcium 8.4 Blood Type Antibody Screen Crossmatch 03/20/25 03/20/25 03/20/25 10:02 13:36 15:33 POC Hgb (Calc) 8.8 L POC Hct 26 L MCV 67.0 L MCH 19.6 L MCHC 29.3 L RDW 18.4 H Plt Count 530 H MPV 9.1 L Immature Gran % (Auto) 0.6 H Neut % (Auto) 83.6 H Lymph % (Auto) 5.4 L [place] % (Auto) 10.1 Eos % (Auto) 0.1 Baso % (Auto) 0.2 Lymph # (Auto) 0.4 L [place] # (Auto) 0.8 Eos # (Auto) 0.0 Baso # (Auto) 0.0 Abs Immat Gran (auto) 0.05 H Absolute Neuts (auto) 6.9 Absolute Nucleated RBC 0.000 Nucleated RBC % (auto) 0.0 Smear Tech's Comments Smear Path Review POC Std Base Excess 2 POC O2 Sat (Calc) 90 POC ABG pO2 59 L POC ABG Total CO2 28 POC Capillary pH 7.39 POC Capillary pCO2 44 POC Cap HCO3 (Calc) 27 H POC Sodium 136 POC Potassium 3.7 Anion Gap Estim Creat Clear Calc Estimated GFR POC Glucose 81 134 H Random Glucose Calcium Blood Type Antibody Screen Crossmatch 03/20/25 03/20/25 15:37 20:08 POC Hgb (Calc) POC Hct MCV MCH MCHC RDW Plt Count MPV Immature Gran % (Auto) Neut % (Auto) Lymph % (Auto) [place] % (Auto) Eos % (Auto) Baso % (Auto) Lymph # (Auto) [place] # (Auto) Eos # (Auto) Baso # (Auto) Abs Immat Gran (auto) Absolute Neuts (auto) Absolute Nucleated RBC Nucleated RBC % (auto) Smear Tech's Comments Smear Path Review POC Std Base Excess POC O2 Sat (Calc) POC ABG pO2 POC ABG Total CO2 POC Capillary pH POC Capillary pCO2 POC Cap HCO3 (Calc) POC Sodium POC Potassium Anion Gap Estim Creat Clear Calc Estimated GFR POC Glucose 139 H 166 H Random Glucose Calcium Blood Type Antibody Screen Crossmatch Assessment and Plan (1) Diverticulitis of colon with perforation: Status: Acute (2) Laceration of bladder: Status: Acute (3) Iron deficiency anemia: Status: Acute Plan Patient admitted by general surgery for diverticulitis with sigmoid colon perforation and abscess Diverticulitis with colon perforation/abscess -- s/p open sig colectomy, MACEY, end colostomy, bladder lac repair - POD #0 - Zosyn - plan per surgery Iron deficiency anemia, hgb stable, received 1U PRBC - follow H+H borderline DM - hold metformin - sliding scale insulin GERD - PPI HLD - statin mood - citalopram HTN, BP soft - hold olmesartan class 2 obesity - weight loss encouraged Thank you for allowing me to participate in the pt's care. Will follow along. Please contact the medical team if any questions or concerns. Quality Stroke Does the patient have a stroke diagnosis?: No VTE Prior VTE?: No VTE Risk Level:: Medical - moderate - high VTE Device Contraindication: N/A - Device Ordered VTE Drug Contraindication: N/A - Med Ordered
[2025-03-20 21:50] LABS: Hematocrit 25.4 % (37.0-47.0); Hemoglobin 7.7 g/dl (12.0-16.0)
[2025-03-21] VITALS (10 sets, daily range): BP systolic 96–123; BP diastolic 50–60; PULSE 91–98; RESP 16–20; TEMP 35.9–37.1; O2SAT 91–97
[2025-03-21 00:04] LABS: Glucose, Whole Blood 174 mg/dL (60-115)
[2025-03-21] MEDS: Lactated Ringers 1,000 ML 80 ML IVCONT (05:40)
[2025-03-21] MEDS: oxyCODONE HCl Immed Release 5 MG TABLET PO ×3 (05:44→18:53)
[2025-03-21 06:16] LABS: Glucose, Whole Blood 146 mg/dL (60-115)
--- NOTE | 2025-03-21 06:40 | PM.PNGS ---
Subjective Subjective Date of Service: 03/21/25 <Lito Miller - Last Filed: 03/21/25 07:20> 03/21/25 <Silvia Benitez PA-C - Last Filed: 03/21/25 08:22> 03/21/25 <Declan Vaughan MD - Last Filed: 03/21/25 16:02> Interval history: Patient is a 64 year old female with PMHx of diverticulitis of colon with perforation, iron deficiency anemia, and prediabetes who is s/p hand assisted laparoscopic resection of the sigmoid on 03/20, complicated by significant adhesions to bladder wall with subsequent bladder laceration and repair. This is post op day 1. She slept well overnight. Pain is 8/10 at worst and intermittently felt in her abdomen and back (has chronic back pain), she feels is well controlled with 5mg oxycodone PO and scheduled IV morphine and acetaminophen. She has not yet ambulated. She denies feeling hungry since her surgery. She has been tolerating a clear liquid diet with minimal nausea and without vomiting. She denies feeling feverish, chills, dizziness, shortness of breath, or chest pain. <Lito Miller - Last Filed: 03/21/25 07:20> Physical Exam Vital Signs: Vital Signs: Last Vital Signs Temp 96.7 F L 03/21/25 04:00 Pulse 91 03/21/25 04:00 Resp 18 03/21/25 04:00 BP 122/59 L 03/21/25 04:00 Pulse Ox 97 03/21/25 04:00 O2 Del Method Room Air 03/21/25 04:00 O2 Flow Rate 2 03/20/25 19:30 BMI result Body Mass Index 41.6 <Lito Miller - Last Filed: 03/21/25 07:20> Const: Other: Alert and oriented x3. <Lito Miller - Last Filed: 03/21/25 07:20> Orientation/consciousness: patient oriented x3 <Silvia Benitez PA-C - Last Filed: 03/21/25 08:22> Resp: Effort & Inspection: normal respiratory effort and able to speak in complete sentences <Lito Miller Last Filed: 03/21/25 07:20> GI: Other: NADINE drain intact in RLQ, draining bright red blood. Dressings dry and intact. Colostomy bag with small amount of brown stool, without melena or hematochezia. <[facility] Last Filed: 03/21/25 07:20> Palpation (GI): Soft to palpation, Tenderness to palpation present (GI) (diffusely), no guarding and not rigid <[facility] Last Filed: 03/21/25 07:20> : Other: Ortiz catheter intact, urine is clear and without hematuria. <[facility] Last Filed: 03/21/25 07:20> Neuro: General: patient oriented x3 and moves all extremities <Silvia Benitez PA-C - Last Filed: 03/21/25 08:22> Extrem: General: Yes no clubbing, cyanosis or edema <Silvia Benitez PA-C - Last Filed: 03/21/25 08:22> Objective Data Active Medications Atorvastatin Calcium (Atorvastatin Calcium 20 Mg Tablet) 20 mg PO BEDTIME [facility] Last Admin: 03/20/25 20:58 Dose: 20 mg Documented By: ROBERT Calcium Carbonate (Calcium Carbonate 750 Mg Tab.Chew) 750 mg PO Q4H PRN PRN Reason: Heartburn Dextrose (Dextrose 50 % 25 Gm/50 Ml Syringe) 25 gm IVPUSH Q15M PRN; Protocol PRN Reason: per Hypoglycemia Standing Ord. Escitalopram Oxalate (Escitalopram Oxalate 10 Mg Tablet) 10 mg PO BEDTIME [facility] Last Admin: 03/20/25 20:58 Dose: 10 mg Documented By: ROBERT Glucose (Glucose Gel 15 Gm Gel..Gram.) 15 gm PO Q15M PRN; Protocol PRN Reason: per Hypoglycemia Standing Ord. Lactated Ringer's (Lr) 1,000 mls @ 80 mls/hr IVCONT .[id number] [facility] Last Admin: 03/21/25 05:40 Dose: 80 mls/hr Documented By: ANTDANNIELLE Piperacillin Sod/Tazobactam (Sod 3.375 gm/ Sodium Chloride) 50 mls @ 100 mls/hr IV Q6H [facility] Last Infusion: 03/21/25 06:19 Dose: Infused Documented By: ANTDANNIELLE Acetaminophen (Ofirmev) 1,000 mg in 100 mls @ 400 mls/hr IV Q6H [facility] Last Infusion: 03/21/25 01:08 Dose: Infused Documented By: ROBERT Insulin Human Lispro (Insulin Lispro 100 Unit/Ml 3 Ml Vial) 0 unit SUBCUT Q6H [facility]; Protocol Last Admin: 03/21/25 06:18 Dose: Not Given Documented By: ROBERT Non-Admin Reason: No Insulin Coverage Melatonin (Melatonin 3 Mg Tablet) 6 mg PO BEDTIME PRN PRN Reason: Insomnia Morphine Sulfate (Morphine Sulfate 4 Mg/Ml Cartridge) 4 mg IVPUSH Q4H PRN; Protocol PRN Reason: Pain, Severe (Pain Scale 7-10) Last Admin: 03/20/25 23:43 Dose: 4 mg Documented By: ANTDANNIELLE Omeprazole (Omeprazole 20 Mg Capsule.Dr) 20 mg PO DAILY@1630 [facility] Last Admin: 03/20/25 19:41 Dose: Not Given Documented By: ROBERT Non-Admin Reason: Off Unit: Surgery Ondansetron HCl (Ondansetron Hcl 4 Mg/2 Ml Vial) 4 mg IVPUSH Q8H PRN PRN Reason: Nausea and Vomiting Oxycodone HCl (Oxycodone Hcl Immed Release 5 Mg Tablet) 5 mg PO Q4H PRN PRN Reason: Pain, Moderate(Pain Scale 4-6) Last Admin: 03/21/25 05:44 Dose: 5 mg Documented By: ROBERT Sodium Chloride (0.9 % Sodium Chloride Flush 3 Ml Syringe) 3 ml IVFLUSH QSHIFT [facility] Last Admin: 03/20/25 22:26 Dose: Not Given Documented By: ROBERT Non-Admin Reason: IV Running Valsartan (Valsartan 160 Mg Tablet) 160 mg PO DAILY [facility] Last Admin: 03/20/25 08:45 Dose: 160 mg Documented By: SUDARSHAN <Lito Miller - Last Filed: 03/21/25 07:20> Labs CBC & Chem 7: 03/21/25 05:56 03/21/25 05:56 <Lito Miller - Last Filed: 03/21/25 07:20> Labs: Laboratory Results - last 24 hr 03/19/25 03/20/25 03/20/25 14:02 06:56 10:02 POC Hgb (Calc) POC Hct MCV MCH MCHC RDW Plt Count MPV Immature Gran % (Auto) Neut % (Auto) Lymph % (Auto) [place] % (Auto) Eos % (Auto) Baso % (Auto) Lymph # (Auto) [place] # (Auto) Eos # (Auto) Baso # (Auto) Abs Immat Gran (auto) Absolute Neuts (auto) Absolute Nucleated RBC Nucleated RBC % (auto) Smear Path Review SEE NOTE POC Std Base Excess POC O2 Sat (Calc) POC ABG pO2 POC ABG Total CO2 POC Capillary pH POC Capillary pCO2 POC Cap HCO3 (Calc) POC Sodium POC Potassium POC Glucose 81 81 03/20/25 03/20/25 03/20/25 13:36 15:33 15:37 POC Hgb (Calc) 8.8 L POC Hct 26 L MCV 67.0 L MCH 19.6 L MCHC 29.3 L RDW 18.4 H Plt Count 530 H MPV 9.1 L Immature Gran % (Auto) 0.6 H Neut % (Auto) 83.6 H Lymph % (Auto) 5.4 L [place] % (Auto) 10.1 Eos % (Auto) 0.1 Baso % (Auto) 0.2 Lymph # (Auto) 0.4 L [place] # (Auto) 0.8 Eos # (Auto) 0.0 Baso # (Auto) 0.0 Abs Immat Gran (auto) 0.05 H Absolute Neuts (auto) 6.9 Absolute Nucleated RBC 0.000 Nucleated RBC % (auto) 0.0 Smear Path Review POC Std Base Excess 2 POC O2 Sat (Calc) 90 POC ABG pO2 59 L POC ABG Total CO2 28 POC Capillary pH 7.39 POC Capillary pCO2 44 POC Cap HCO3 (Calc) 27 H POC Sodium 136 POC Potassium 3.7 POC Glucose 134 H 139 H 03/20/25 03/21/25 03/21/25 20:08 00:00 06:12 POC Hgb (Calc) POC Hct MCV MCH MCHC RDW Plt Count MPV Immature Gran % (Auto) Neut % (Auto) Lymph % (Auto) [place] % (Auto) Eos % (Auto) Baso % (Auto) Lymph # (Auto) [place] # (Auto) Eos # (Auto) Baso # (Auto) Abs Immat Gran (auto) Absolute Neuts (auto) Absolute Nucleated RBC Nucleated RBC % (auto) Smear Path Review POC Std Base Excess POC O2 Sat (Calc) POC ABG pO2 POC ABG Total CO2 POC Capillary pH POC Capillary pCO2 POC Cap HCO3 (Calc) POC Sodium POC Potassium POC Glucose 166 H 174 H 146 H <Lito Miller - Last Filed: 03/21/25 07:20> Procedures Date of Service Date of Service: 03/21/25 <Lito Miller - Last Filed: 03/21/25 07:20> 03/21/25 <Silvia Benitez PA-C - Last Filed: 03/21/25 08:22> 03/21/25 <Declan Vaughan MD - Last Filed: 03/21/25 16:02> Progress Note: A&P Assessment and plan (1) Colostomy in place: Status: Acute <Lito Miller - Last Filed: 03/21/25 07:20> Assessment and Plan: No events overnight Appears to have good pain control Stoma functioning well with good output NADINE drain serosanguineous Ambulate Probably advance diet later Incentive spirometry Pain management Anticipate more pain later today after tap block wears off Keep Ortiz in - urine adequate and clear Seen and examined independently Family updated <Declan Vaughan MD - Last Filed: 03/21/25 16:02> Assessment and Plan: Patient is a 64 year old female s/p hand assisted laparoscopic resection of the sigmoid colon on post op day 1. Has been tolerating clear liquid diet, may trial solids today as tolerated. Pain controlled with scheduled IV morphine and acetaminophen and PO oxycodone, continue, with eventual plan towards PO pain control only as tolerated. May benefit from physical therapy evaluation if struggling to get OOB and ambulate. Continue monitoring vital signs, labs, NADINE drain, urine output, and stool output. CBC without leukocytosis, anemic with RBC of 3.91, Hgb of 7.6, and Hct of 25.8, notably with history of Fe deficiency anemia and preop levels were similar at RBC 3.98, Hgb 7.4, and Hct 25.8 respectively. Continue Zosyn for at least 3 more days. <Lito Miller - Last Filed: 03/21/25 07:20> Patient is a 64 year old female s/p hand assisted laparoscopic resection of the sigmoid colon on post op day 1. Has been tolerating clear liquid diet, may trial solids today as tolerated. Pain controlled with scheduled IV morphine and acetaminophen and PO oxycodone, continue, with eventual plan towards PO pain control only as tolerated. May benefit from physical therapy evaluation if struggling to get OOB and ambulate. Continue monitoring vital signs, labs, NADINE drain, urine output, and stool output. CBC without leukocytosis, anemic with RBC of 3.91, Hgb of 7.6, and Hct of 25.8, notably with history of Fe deficiency anemia and preop levels were similar at RBC 3.98, Hgb 7.4, and Hct 25.8 respectively. Continue Zosyn for at least 3 more days. Agree with above assessment by Paul GASCA. Patient POD #1 s/p hand assisted laparoscopic resection of the sigmoid, resection of a large cavity containing stool with repair of a large tear on the bladder wall, end colostomy from the remaining sigmoid. Patient is doing fairly well post op. BP is on softer side but stable, H/H virtually unchanged. Abd is overall benign with appropriate post op tenderness, dressings slightly stained, ostomy functioning well with stool output. NADINE drain serosanguineous output. Ortiz in place draining straw colored urine. Cont IV zosyn, IVF. Repeat CBC in am, leukocytosis likely reactive at this point. Encouraged OOB to at least recliner today, IS use. Keep ortiz in place. Pain control. Ostomy education. Will transfuse 1U PRBC for now. <Silvia Benitez PA-C - Last Filed: 03/21/25 08:22> Time Spent With Patient Time: Total time managing care of this patient today ____ minutes. <Lito Miller - Last Filed: 03/21/25 07:20> Quality Stroke Does the patient have a stroke diagnosis?: No <Lito Miller Last Filed: 03/21/25 07:20> VTE Prior VTE?: No <Lito Miller Last Filed: 03/21/25 07:20> VTE Risk Level:: Medical - moderate - high <Lito Miller - Last Filed: 03/21/25 07:20> VTE Device Contraindication: N/A - Device Ordered <Lito Miller Last Filed: 03/21/25 07:20> VTE Drug Contraindication: N/A - Med Ordered <Lito Miller Last Filed: 03/21/25 07:20>
--- NOTE | 2025-03-21 06:42 | PM.HPGS ---
History of Present Illness History of Present Illness Date of Service: 03/21/25 Chief complaint: Diverticulitis with contained perforation Narrative: Flores Xiao is a 64 year old female status post [facility] Past Medical History Medical History Anxiety HTN (hypertension) Class 2 obesity Depression HLD (hyperlipidemia) GERD (gastroesophageal reflux disease) Borderline diabetes Iron deficiency anemia Diverticulitis of colon with perforation Surgical History Surgical History Status post surgical removal of malignant neoplasm of skin Social History Social History Household Members: Family Housing: House Do you presently have visiting nurse or other home services: No Patient Tobacco Use Status: Former Tobacco user service: No Meds Allergies Allergy/AdvReac Type Severity Reaction Status Date / Time No Known Allergies (No Known Allergy Verified 03/20/25 10:00 Allergies*) Active Medications: Current Medications Atorvastatin Calcium (Atorvastatin Calcium 20 Mg Tablet) 20 mg PO BEDTIME [facility] Last Admin: 03/20/25 20:58 Dose: 20 mg Calcium Carbonate (Calcium Carbonate 750 Mg Tab.Chew) 750 mg PO Q4H PRN PRN Reason: Heartburn Dextrose (Dextrose 50 % 25 Gm/50 Ml Syringe) 25 gm IVPUSH Q15M PRN; Protocol PRN Reason: per Hypoglycemia Standing Ord. Escitalopram Oxalate (Escitalopram Oxalate 10 Mg Tablet) 10 mg PO BEDTIME [facility] Last Admin: 03/20/25 20:58 Dose: 10 mg Glucose (Glucose Gel 15 Gm Gel..Gram.) 15 gm PO Q15M PRN; Protocol PRN Reason: per Hypoglycemia Standing Ord. Lactated Ringer's (Lr) 1,000 mls @ 80 mls/hr IVCONT .[id number] [facility] Last Admin: 03/21/25 05:40 Dose: 80 mls/hr Piperacillin Sod/Tazobactam (Sod 3.375 gm/ Sodium Chloride) 50 mls @ 100 mls/hr IV Q6H [facility] Last Infusion: 03/21/25 06:19 Dose: Infused Acetaminophen (Ofirmev) 1,000 mg in 100 mls @ 400 mls/hr IV Q6H [facility] Last Infusion: 03/21/25 01:08 Dose: Infused Insulin Human Lispro (Insulin Lispro 100 Unit/Ml 3 Ml Vial) 0 unit SUBCUT Q6H [facility]; Protocol Last Admin: 03/21/25 06:18 Dose: Not Given Melatonin (Melatonin 3 Mg Tablet) 6 mg PO BEDTIME PRN PRN Reason: Insomnia Morphine Sulfate (Morphine Sulfate 4 Mg/Ml Cartridge) 4 mg IVPUSH Q4H PRN; Protocol PRN Reason: Pain, Severe (Pain Scale 7-10) Last Admin: 03/20/25 23:43 Dose: 4 mg Omeprazole (Omeprazole 20 Mg Capsule.Dr) 20 mg PO DAILY@1630 [facility] Last Admin: 03/20/25 19:41 Dose: Not Given Ondansetron HCl (Ondansetron Hcl 4 Mg/2 Ml Vial) 4 mg IVPUSH Q8H PRN PRN Reason: Nausea and Vomiting Oxycodone HCl (Oxycodone Hcl Immed Release 5 Mg Tablet) 5 mg PO Q4H PRN PRN Reason: Pain, Moderate(Pain Scale 4-6) Last Admin: 03/21/25 05:44 Dose: 5 mg Sodium Chloride (0.9 % Sodium Chloride Flush 3 Ml Syringe) [facility] Last Admin: 03/20/25 22:26 Dose: Not Given Valsartan (Valsartan 160 Mg Tablet) 160 mg PO DAILY [facility] Last Admin: 03/20/25 08:45 Dose: 160 mg Home Medications ?Medication ?Instructions ?Recorded ?Confirmed ?Last Taken ?Type acetaminophen 500 mg tablet 1,000 mg PO BID PRN Pain 03/19/25 03/19/25 Unknown History citalopram 20 mg tablet 20 mg PO BEDTIME 03/19/25 03/19/25 03/18/25 History metformin 500 mg tablet,extended 500 mg PO BEDTIME 03/19/25 03/19/25 03/18/25 History release 24 hr olmesartan 40 mg tablet 40 mg PO BEDTIME 03/19/25 03/19/25 03/18/25 History pantoprazole 40 mg tablet,delayed 40 mg PO DAILY@1630 03/19/25 03/19/25 03/18/25 History release rosuvastatin 10 mg tablet 10 mg PO BEDTIME 03/19/25 03/19/25 03/18/25 History sennosides 8.6 mg tablet (senna) 17.6 mg PO BEDTIME PRN Constipation 03/19/25 03/19/25 Unknown History Physical Exam Vital Signs: Vital Signs: Last Vital Signs Temp 96.7 F L 03/21/25 04:00 Pulse 91 03/21/25 04:00 Resp 18 03/21/25 04:00 BP 122/59 L 03/21/25 04:00 Pulse Ox 97 03/21/25 04:00 O2 Del Method Room Air 03/21/25 04:00 O2 Flow Rate 2 03/20/25 19:30 BMI result Body Mass Index 41.6 Results Results Labs: Short CBC 03/20/25 03/20/25 Range/Units 15:33 21:41 WBC 8.2 (4.8-10.8) X10*3/uL Hgb 7.9 L 7.7 L (12.0-16.0) g/dl Hct 27.0 L 25.4 L (37.0-47.0) % Plt Count 530 H (160-400) X10*3/uL Urine 03/19/25 Range/Units 13:59 Urine Color Yellow Urine Appearance Clear Urine pH 7.0 (5.0-9.0) Ur Specific [place] 1.020 (1.005-1.025) Urine Protein Trace (Neg-Trace) mg/dL Urine Glucose (UA) Negative (Negative) mg/dL Quality Stroke Does the patient have a stroke diagnosis?: No VTE Prior VTE?: No VTE Risk Level:: Medical - moderate - high VTE Device Contraindication: N/A - Device Ordered VTE Drug Contraindication: N/A - Med Ordered Procedures Date of Service Date of Service: 03/21/25
[2025-03-21 06:51] LABS: Anion Gap 12 (12-20); Blood Urea Nitrogen 7 mg/dL (9-16); Calcium 8.5 mg/dL (8.4-10.2); Carbon Dioxide 28 mmol/L (22-29); Chloride 104 mmol/L (96-108); Creatinine Clr Calc Pharmacy 123.9; Estimated Glomerular Filt Rate > 60; Hematocrit 26.0 % (37.0-47.0); Hemoglobin 7.6 g/dl (12.0-16.0); Mean Corpuscular HGB Conc 29.2 g/dl (31.0-35.0); Mean Corpuscular Hemoglobin 19.4 pg (27.0-33.0); Mean Corpuscular Volume 66.3 fL (80.0-98.0); NRBC Abs Auto 0.000 X10*3/uL (0.0-0.012); NRBC Pct Auto 0.0 /100WBC (0.0-0.2); Platelet Count 548 X10*3/uL (160-400); Potassium 4.1 mmol/L (3.3-5.1); Red Blood Count 3.92 X10*6/uL (4.20-5.50); Sodium 140 mmol/L (135-145); White Blood Count 18.8 X10*3/uL (4.8-10.8)
[2025-03-21 07:31] LABS: Band Neutrophils Percent 34 % (3-5); Neutrophils Absolute Manual 15.8 X10*3/uL (2.0-8.3); Neutrophils Percent Manual 50 % (45-73)
[2025-03-21 07:32] LABS: Lymphocytes Absolute Manual 1.7 X10*3/uL (1.2-4.9); Lymphocytes Percent Manual 9 % (20-40); Monocytes Absolute Manual 1.3 X10*3/uL (0.1-1.2); Monocytes Percent Manual 7 % (2-11)
[2025-03-21 07:33] LABS: RBC Morphology NOTED
[2025-03-21 07:34] LABS: Microcytosis 1+ (5-14) /OIF
[2025-03-21 07:37] LABS: Dohle Bodies PRESENT; Hypochromasia 2+ (15-30) /OIF
[2025-03-21 07:38] LABS: Toxic Granulation PRESENT
[2025-03-21 07:39] LABS: Acanthocytes 1+ (0-2) /OIF; Ovalocytes 1+ (5-14) /OIF
--- NOTE | 2025-03-21 08:45 | HO.POSTANES ---
Post Anesthesia Evaluation Post Anesthesia Evaluation Date of Service: 03/21/25 Vital Signs: Vital Signs Temp Pulse Resp BP Pulse Ox O2 Del Method 03/21/25 07:09 97.4 F 96 20 114/56 L 91 L Room Air 03/21/25 04:00 96.7 F L 91 18 122/59 L 97 Room Air 03/21/25 00:00 97.5 F 98 18 123/60 96 Room Air Anesthesia: Nerve Block and General Endotracheal-GETA Mental Status: Awake Pain Control: Satisfactory Nausea/Vomiting: None Hydration: Adequate Anesthesia-Related Issues: No Anes. Related Issues
--- NOTE | 2025-03-21 10:48 | HO.OSTOMY ---
Ostomy Consult: Initial Teaching 64yr old female admitted to [facility] on 03/19/25 see H&P for detailed history and admission. Consult for new ostomy teaching. ?She had an End Colostomy creation on 03/20/[address] Vaughan. ?Upon entry into patient's room, she is sitting up in the chair, she is alert and oriented x 3. ?Introductions were completed, she is agreeable to continuing with teaching. ? We discussed pain controlled at the current moment. She reports this is the first time she has been up out of bed, has not ambulated yet. ?We began by discussing general knowledge about the Colostomy and questions he had. ?We discussed opening and closing the ostomy pouch. ?Staff has emptied her pouch with pasty dark brown stool. We discussed the importance of emptying pouch when 1/3 to 1/2 full, how to empty pouch, and lining water with toilet paper to prevent splash back. Reviewed written education with patient and left at bedside for further review. ?She did not watch the education videos supplied by [facility] at this time, requested to wait. Provided option of QR codes for videos located in educational material as well. Permission was granted for pouch assessment and no leak was noted. Stoma is dark red and appears viable through pouch, difficult to assess due to appearing small and retracted. Stoma is located in slight crease. Pouch was about 1/3 full, therefore we discussed the process of emptying and emptied into graduated container. She reported having no questions at this time. ?Patient was made aware that ostomy nurse will return to bedside later in week for ongoing education - however to note patient seems to have a good understanding of care and material at this time. Patient is receptive to teaching. She reports that she lives with 7 other people but does not feel she needs anyone else to receive education.?She will benefit from VNA services at time of discharge. ?All questions and concerns addressed at this time. Next teaching session goals: Demonstrate open and close independently
--- NOTE | 2025-03-21 11:04 | MHC.CM.PN ---
Per MD patient not medically cleared for dc. CM will continue to follow.
[2025-03-21 12:05] LABS: Glucose, Whole Blood 138 mg/dL (60-115)
--- NOTE | 2025-03-21 14:26 | PM.EVENT ---
Event Note Date of Service: 03/24/25 Event Note: Says she feels okay Adequate pain control Stoma with output Tolerating clear liquids Describes some burping Abdomen is soft Good urine output, clear Would keep on clear liquids for now in view of burping Encouraged to ambulate more Transfused 1 unit in view of borderline line soft blood pressure Looks well overall Pain management Stoma care Time Spent With Patient Time: Total time managing care of this patient today ____ minutes.
--- NOTE | 2025-03-21 14:46 | P.PNIM_ITS ---
Subjective Subjective Date of Service: 03/21/25 Interval History: Doing well overall. Pain control adequate Review of Systems Denies chest pain Denies shortness of breath Admits to abdominal pain denies nausea vomiting diarrhea Denies fever chills Physical Exam 2 Vital Signs: Vital Signs: Last Vital Signs Temp 98.8 F 03/21/25 14:37 Pulse 92 03/21/25 14:37 Resp 16 03/21/25 14:37 BP 114/58 L 03/21/25 14:37 Pulse Ox 92 03/21/25 11:58 O2 Del Method Room Air 03/21/25 11:58 O2 Flow Rate 2 03/20/25 19:30 BMI result Body Mass Index 41.6 Const: Other: Awake alert no acute distress Resp: Other: Clear to auscultation bilaterally no rales rhonchi or wheeze Cardio: Other: No S4; positive S1-S2; no S3 murmurs rubs or gallops GI: Other: Stool in colostomy bag. Dressing clean dry and intact. Quiet bowel sounds Extrem: Other: No edema bilaterally Objective Data Active Medications Atorvastatin Calcium (Atorvastatin Calcium 20 Mg Tablet) 20 mg PO BEDTIME [facility] Last Admin: 03/20/25 20:58 Dose: 20 mg Documented By: ROBERT Calcium Carbonate (Calcium Carbonate 750 Mg Tab.Chew) 750 mg PO Q4H PRN PRN Reason: Heartburn Dextrose (Dextrose 50 % 25 Gm/50 Ml Syringe) 25 gm IVPUSH Q15M PRN; Protocol PRN Reason: per Hypoglycemia Standing Ord. Escitalopram Oxalate (Escitalopram Oxalate 10 Mg Tablet) 10 mg PO BEDTIME [facility] Last Admin: 03/20/25 20:58 Dose: 10 mg Documented By: ROBERT Glucose (Glucose Gel 15 Gm Gel..Gram.) 15 gm PO Q15M PRN; Protocol PRN Reason: per Hypoglycemia Standing Ord. Lactated Ringer's (Lr) 1,000 mls @ 100 mls/hr IVCONT .Q10H [facility] Last Infusion: 03/21/25 14:21 Dose: 100 mls/hr Documented By: VALENTIN Piperacillin Sod/Tazobactam (Sod 3.375 gm/ Sodium Chloride) 50 mls @ 100 mls/hr IV Q6H [facility] Last Infusion: 03/21/25 14:23 Dose: Infused Documented By: CHARMAINE Acetaminophen (Ofirmev) 1,000 mg in 100 mls @ 400 mls/hr IV Q6H [facility] Last Infusion: 03/21/25 14:37 Dose: Infused Documented By: CHARMAINE Insulin Human Lispro (Insulin Lispro 100 Unit/Ml 3 Ml Vial) 0 unit SUBCUT Q6H [facility]; Protocol Last Admin: 03/21/25 13:12 Dose: Not Given Documented By: CHARMAINE Non-Admin Reason: No Insulin Coverage Melatonin (Melatonin 3 Mg Tablet) 6 mg PO BEDTIME PRN PRN Reason: Insomnia Morphine Sulfate (Morphine Sulfate 4 Mg/Ml Cartridge) 4 mg IVPUSH Q4H PRN; Protocol PRN Reason: Pain, Severe (Pain Scale 7-10) Last Admin: 03/20/25 23:43 Dose: 4 mg Documented By: ROBERT Omeprazole (Omeprazole 20 Mg Capsule.) 20 mg PO DAILY@1630 [facility] Last Admin: 03/20/25 19:41 Dose: Not Given Documented By: ROBERT Non-Admin Reason: Off Unit: Surgery Ondansetron HCl (Ondansetron Hcl 4 Mg/2 Ml Vial) 4 mg IVPUSH Q8H PRN PRN Reason: Nausea and Vomiting Oxycodone HCl (Oxycodone Hcl Immed Release 5 Mg Tablet) 5 mg PO Q4H PRN PRN Reason: Pain, Moderate(Pain Scale 4-6) Last Admin: 03/21/25 10:20 Dose: 5 mg Documented By: CHARMAINE Sodium Chloride (0.9 % Sodium Chloride Flush 3 Ml Syringe) 3 ml IVFLUSH QSHIFT [facility] Last Admin: 03/21/25 09:11 Dose: Not Given Documented By: CHARMAINE Non-Admin Reason: IV Running Valsartan (Valsartan 160 Mg Tablet) 160 mg PO DAILY [facility] Last Admin: 03/21/25 09:08 Dose: 160 mg Documented By: CHARMAINE Labs 03/21/25 05:56 03/21/25 05:56 Labs: Laboratory Results - last 24 hr 03/19/25 03/20/25 03/20/25 16:51 15:33 15:37 MCV 67.0 L MCH 19.6 L MCHC 29.3 L RDW 18.4 H Plt Count 530 H MPV 9.1 L Immature Gran % (Auto) 0.6 H Neut % (Auto) 83.6 H Lymph % (Auto) 5.4 L [place] % (Auto) 10.1 Eos % (Auto) 0.1 Baso % (Auto) 0.2 Lymph # (Auto) 0.4 L [place] # (Auto) 0.8 Eos # (Auto) 0.0 Baso # (Auto) 0.0 Abs Immat Gran (auto) 0.05 H Absolute Neuts (auto) 6.9 Absolute Nucleated RBC 0.000 Nucleated RBC % (auto) 0.0 Neutrophils % (Manual) Band Neutrophils % Lymphocytes % (Manual) Monocytes % (Manual) Abs Neuts (Manual) Lymphocytes # (Manual) Monocytes # (Manual) Toxic Granulation Dohle Bodies Platelet Estimate Plt Morphology Comment RBC Morphology Hypochromasia Microcytosis Ovalocytes Acanthocytes (Spur) Anion Gap Estim Creat Clear Calc Estimated GFR POC Glucose 139 H Fasting Glucose Calcium Blood Type O Positive Antibody Screen NEGATIVE Crossmatch See Detail 03/20/25 03/21/25 03/21/25 20:08 00:00 05:56 MCV 66.3 L MCH 19.4 L MCHC 29.2 L RDW 18.7 H Plt Count 548 H MPV 9.0 L Immature Gran % (Auto) Cancelled Neut % (Auto) Cancelled Lymph % (Auto) Cancelled [place] % (Auto) Cancelled Eos % (Auto) Cancelled Baso % (Auto) Cancelled Lymph # (Auto) Cancelled [place] # (Auto) Cancelled Eos # (Auto) Cancelled Baso # (Auto) Cancelled Abs Immat Gran (auto) Cancelled Absolute Neuts (auto) Cancelled Absolute Nucleated RBC 0.000 Nucleated RBC % (auto) 0.0 Neutrophils % (Manual) 50 Band Neutrophils % 34 H Lymphocytes % (Manual) 9 L Monocytes % (Manual) 7 Abs Neuts (Manual) 15.8 H Lymphocytes # (Manual) 1.7 Monocytes # (Manual) 1.3 H Toxic Granulation PRESENT Dohle Bodies PRESENT Platelet Estimate INCREASED Plt Morphology Comment NORMAL RBC Morphology NOTED Hypochromasia 2+ (15-30) Microcytosis 1+ (5-14) Ovalocytes 1+ (5-14) Acanthocytes (Spur) 1+ (0-2) Anion Gap 12 Estim Creat Clear Calc 123.9 Estimated GFR > 60 POC Glucose 166 H 174 H Fasting Glucose 147 H Calcium 8.5 Blood Type Antibody Screen Crossmatch 03/21/25 03/21/25 06:12 12:01 MCV MCH MCHC RDW Plt Count MPV Immature Gran % (Auto) Neut % (Auto) Lymph % (Auto) [place] % (Auto) Eos % (Auto) Baso % (Auto) Lymph # (Auto) [place] # (Auto) Eos # (Auto) Baso # (Auto) Abs Immat Gran (auto) Absolute Neuts (auto) Absolute Nucleated RBC Nucleated RBC % (auto) Neutrophils % (Manual) Band Neutrophils % Lymphocytes % (Manual) Monocytes % (Manual) Abs Neuts (Manual) Lymphocytes # (Manual) Monocytes # (Manual) Toxic Granulation Dohle Bodies Platelet Estimate Plt Morphology Comment RBC Morphology Hypochromasia Microcytosis Ovalocytes Acanthocytes (Spur) Anion Gap Estim Creat Clear Calc Estimated GFR POC Glucose 146 H 138 H Fasting Glucose Calcium Blood Type Antibody Screen Crossmatch Assessment and Plan (1) Diverticulitis of colon with perforation: Status: Acute (2) Borderline diabetes: Status: Acute Plan Patient admitted by general surgery for diverticulitis with sigmoid colon perforation and abscess 1.Diverticulitis with colon perforation/abscess -- s/p open sig colectomy, MACEY, end colostomy, bladder lac repair - POD #1 - Zosyn(2) - plan as per surgery 2.Iron deficiency anemia -hemoglobin stable 3.DM II - hold metformin until adequate p.o. -acceptable control off therapies -lispro correctional scale -adjust as indicated 4.HTN -BP acceptable off therapies -add back when clinically indicated Thank you for allowing me to participate in the pt's care. Will follow along. Please contact the medical team if any questions or concerns. Quality Stroke Does the patient have a stroke diagnosis?: No VTE Prior VTE?: No VTE Risk Level:: Medical - moderate - high VTE Device Contraindication: N/A - Device Ordered VTE Drug Contraindication: N/A - Med Ordered
[2025-03-21] MEDS: 0.9 % Sodium Chloride Flush 3 ML SYRINGE IVFLUSH (15:58)
[2025-03-21 17:31] LABS: Glucose, Whole Blood 120 mg/dL (60-115)
[2025-03-21] MEDS: Lactated Ringers 1,000 ML 100 ML IVCONT (19:49)
[2025-03-21 20:58] LABS: Glucose, Whole Blood 112 mg/dL (60-115)
[2025-03-21 23:39] LABS: Glucose, Whole Blood 112 mg/dL (60-115)
[2025-03-22] VITALS (8 sets, daily range): BP systolic 100–125; BP diastolic 54–59; PULSE 87–105; RESP 16–20; TEMP 36–36.7; O2SAT 91–93
[2025-03-22] MEDS: oxyCODONE HCl Immed Release 5 MG TABLET PO ×3 (01:31→19:18)
[2025-03-22 05:31] LABS: MANUAL DIFF FLAG NO
[2025-03-22 05:33] LABS: Glucose, Whole Blood 107 mg/dL (60-115)
[2025-03-22 05:34] LABS: Hematocrit 25.5 % (37.0-47.0); Hemoglobin 7.9 g/dl (12.0-16.0); Imm Gran Abs Auto 0.21 X10*3/uL (0.00-0.03); Imm Gran Pct Auto 0.9 % (0.0-0.4); Lymphocytes Absolute Auto 1.5 X10*3/uL (1.2-4.9); Mean Corpuscular HGB Conc 31.0 g/dl (31.0-35.0); Mean Corpuscular Hemoglobin 20.9 pg (27.0-33.0); Mean Corpuscular Volume 67.5 fL (80.0-98.0); NRBC Abs Auto 0.000 X10*3/uL (0.0-0.012); NRBC Pct Auto 0.0 /100WBC (0.0-0.2); Platelet Count 483 X10*3/uL (160-400); Red Blood Count 3.78 X10*6/uL (4.20-5.50); SCAN SMEAR FLAG 1; White Blood Count 22.3 X10*3/uL (4.8-10.8)
[2025-03-22] MEDS: Lactated Ringers 1,000 ML 100 ML IVCONT ×2 (06:18→19:14)
[2025-03-22 07:48] LABS: Glucose, Whole Blood 94 mg/dL (60-115)
--- NOTE | 2025-03-22 08:56 | P.PNGS_ITS ---
Subjective Subjective Date of Service: 03/22/25 Interval history: Overall patient feels improved today with less abdominal pain. Ostomy is producing a large amount of stool. She was started on clear liquids yesterday but has not taken much in his not interested in advancing the diet. She was out of bed yesterday and we will continue to mobilize today. Physical Exam 2 Vital Signs: Vital Signs: Last Vital Signs Temp 98.0 F 03/22/25 07:32 Pulse 98 03/22/25 07:32 Resp 16 03/22/25 07:32 BP 111/57 L 03/22/25 07:32 Pulse Ox 91 L 03/22/25 07:32 O2 Del Method Room Air 03/22/25 07:32 O2 Flow Rate 92 03/21/25 23:30 BMI result Body Mass Index 41.6 Const: General: no acute distress Nutritional Appearance: well nourished Orientation/consciousness: patient oriented x3 Limitations: no limitations Resp: Effort & Inspection: normal respiratory effort, no audible wheezes, no cough and no respiratory distress GI: Other: Abdominal incision is clean and intact without redness or discharge. Ostomy is pink and patent filled with nonbloody stool and gas Skin: Other: Warm, dry, no rashes Neuro: General: patient oriented x3 Extrem: General: Yes no pedal edema Objective Data Active Medications Atorvastatin Calcium (Atorvastatin Calcium 20 Mg Tablet) 20 mg PO BEDTIME [facility] Last Admin: 03/21/25 20:44 Dose: 20 mg Documented By: SAMARIA Calcium Carbonate (Calcium Carbonate 750 Mg Tab.Chew) 750 mg PO Q4H PRN PRN Reason: Heartburn Dextrose (Dextrose 50 % 25 Gm/50 Ml Syringe) 25 gm IVPUSH Q15M PRN; Protocol PRN Reason: per Hypoglycemia Standing Ord. Escitalopram Oxalate (Escitalopram Oxalate 10 Mg Tablet) 10 mg PO BEDTIME [facility] Last Admin: 03/21/25 20:44 Dose: 10 mg Documented By: SAMARIA Glucose (Glucose Gel 15 Gm Gel..Gram.) 15 gm PO Q15M PRN; Protocol PRN Reason: per Hypoglycemia Standing Ord. Lactated Ringer's (Lr) 1,000 mls @ 100 mls/hr IVCONT .Q10H [facility] Last Admin: 03/22/25 06:18 Dose: 100 mls/hr Documented By: SAMARIA Acetaminophen (Ofirmev) 1,000 mg in 100 mls @ 400 mls/hr IV Q6H [facility] Last Admin: 03/22/25 08:08 Dose: Not Given Documented By: SHANTEL Non-Admin Reason: Physician Approved Piperacillin Sod/Tazobactam (Sod 3.375 gm/ Sodium Chloride) 50 mls @ 100 mls/hr IV Q6H [facility] Last Infusion: 03/22/25 07:12 Dose: Infused Documented By: SHANTEL Insulin Human Lispro (Insulin Lispro 100 Unit/Ml 3 Ml Vial) 0 unit SUBCUT Q6H [facility]; Protocol Last Admin: 03/22/25 07:57 Dose: Not Given Documented By: SHANTEL Non-Admin Reason: No Insulin Coverage Melatonin (Melatonin 3 Mg Tablet) 6 mg PO BEDTIME PRN PRN Reason: Insomnia Morphine Sulfate (Morphine Sulfate 4 Mg/Ml Cartridge) 4 mg IVPUSH Q4H PRN; Protocol PRN Reason: Pain, Severe (Pain Scale 7-10) Last Admin: 03/22/25 07:58 Dose: 4 mg Documented By: SHANTEL Omeprazole (Omeprazole 20 Mg Capsule.Dr) 20 mg PO DAILY@1630 [facility] Last Admin: 03/21/25 15:59 Dose: 20 mg Documented By: LEON Ondansetron HCl (Ondansetron Hcl 4 Mg/2 Ml Vial) 4 mg IVPUSH Q8H PRN PRN Reason: Nausea and Vomiting Last Admin: 03/22/25 07:58 Dose: 4 mg Documented By: SHANTEL Oxycodone HCl (Oxycodone Hcl Immed Release 5 Mg Tablet) 5 mg PO Q4H PRN PRN Reason: Pain, Moderate(Pain Scale 4-6) Last Admin: 03/22/25 01:31 Dose: 5 mg Documented By: SAMARIA Sodium Chloride (0.9 % Sodium Chloride Flush 3 Ml Syringe) 3 ml IVFLUSH QSHIFT [facility] Last Admin: 03/22/25 08:12 Dose: Not Given Documented By: SHANTEL Non-Admin Reason: Previously Administered Valsartan (Valsartan 160 Mg Tablet) 160 mg PO DAILY [facility] Last Admin: 03/21/25 09:08 Dose: 160 mg Documented By: CHARMAINE Labs 03/22/25 05:15 03/21/25 05:56 Labs: Laboratory Results - last 24 hr 03/19/25 03/21/25 03/21/25 16:51 12:01 17:27 MCV MCH MCHC RDW Plt Count MPV Immature Gran % (Auto) Neut % (Auto) Lymph % (Auto) [place] % (Auto) Eos % (Auto) Baso % (Auto) Lymph # (Auto) [place] # (Auto) Eos # (Auto) Baso # (Auto) Abs Immat Gran (auto) Absolute Neuts (auto) Absolute Nucleated RBC Nucleated RBC % (auto) POC Glucose 138 H 120 H Blood Type O Positive Antibody Screen NEGATIVE Crossmatch See Detail 03/21/25 03/21/25 03/22/25 20:33 23:34 05:15 MCV 67.5 L MCH 20.9 L MCHC 31.0 RDW 20.3 H Plt Count 483 H MPV 8.5 L Immature Gran % (Auto) 0.9 H Neut % (Auto) 85.2 H Lymph % (Auto) 6.5 L [place] % (Auto) 7.3 Eos % (Auto) 0.0 Baso % (Auto) 0.1 Lymph # (Auto) 1.5 [place] # (Auto) 1.6 H Eos # (Auto) 0.0 Baso # (Auto) 0.0 Abs Immat Gran (auto) 0.21 H Absolute Neuts (auto) 19.0 H Absolute Nucleated RBC 0.000 Nucleated RBC % (auto) 0.0 POC Glucose 112 112 Blood Type Antibody Screen Crossmatch 03/22/25 03/22/25 05:26 07:34 MCV MCH MCHC RDW Plt Count MPV Immature Gran % (Auto) Neut % (Auto) Lymph % (Auto) [place] % (Auto) Eos % (Auto) Baso % (Auto) Lymph # (Auto) [place] # (Auto) Eos # (Auto) Baso # (Auto) Abs Immat Gran (auto) Absolute Neuts (auto) Absolute Nucleated RBC Nucleated RBC % (auto) POC Glucose 107 94 Blood Type Antibody Screen Crossmatch Procedures Date of Service Date of Service: 03/22/25 Progress Note: A&P Assessment and plan (1) Colostomy in place: Status: Acute Plan 64-year-old female patient, POD 2 status post hand assisted laparoscopic resection of sigmoid, resection of large cavity containing stool with repair of large tear of bladder wall, end colostomy in the left lower quadrant. Patient feels improved with decreased abdominal pain but not much of an appetite. H&H 7.9/25.5, stable since yesterday. Plan: Continue clear liquids, IV fluids, IV antibiotics Encouraged out of bed and ambulation, incentive spirometry Continue Saleem catheter drainage, NADINE drainage Recheck CBC in a.m.. Time Spent With Patient Time: Total time managing care of this patient today ____ minutes. Quality Stroke Does the patient have a stroke diagnosis?: No VTE Prior VTE?: No VTE Risk Level:: Medical - moderate - high VTE Device Contraindication: N/A - Device Ordered VTE Drug Contraindication: N/A - Med Ordered
[2025-03-22 11:36] LABS: Glucose, Whole Blood 102 mg/dL (60-115)
--- NOTE | 2025-03-22 13:23 | HO.PM.IMPN ---
Subjective Subjective Date of Service: 03/22/25 Interval History: No acute issues overnight. Pain control adequate Review of Systems Denies chest pain Denies shortness of breath Admits to abdominal pain denies nausea vomiting diarrhea Denies fever chills Physical Exam Vital Signs: Vital Signs: Last Vital Signs Temp 96.8 F 03/22/25 11:47 Pulse 105 H 03/22/25 11:47 Resp 16 03/22/25 11:47 BP 120/57 L 03/22/25 11:47 Pulse Ox 92 03/22/25 11:47 O2 Del Method Room Air 03/22/25 11:47 O2 Flow Rate 92 03/21/25 23:30 BMI result Body Mass Index 41.6 Const: Other: Awake alert no acute distress Resp: Other: Clear to auscultation bilaterally no rales rhonchi or wheeze Cardio: Other: No S4; positive S1-S2; no S3 murmurs rubs or gallops GI: Other: Stool in colostomy bag. Dressing clean dry and intact. Quiet bowel sounds Extrem: Other: No edema bilaterally Objective Data Active Medications Atorvastatin Calcium (Atorvastatin Calcium 20 Mg Tablet) 20 mg PO BEDTIME [facility] Last Admin: 03/21/25 20:44 Dose: 20 mg Documented By: SAMARIA Calcium Carbonate (Calcium Carbonate 750 Mg Tab.Chew) 750 mg PO Q4H PRN PRN Reason: Heartburn Dextrose (Dextrose 50 % 25 Gm/50 Ml Syringe) 25 gm IVPUSH Q15M PRN; Protocol PRN Reason: per Hypoglycemia Standing Ord. Escitalopram Oxalate (Escitalopram Oxalate 10 Mg Tablet) 10 mg PO BEDTIME [facility] Last Admin: 03/21/25 20:44 Dose: 10 mg Documented By: SAMARIA Glucose (Glucose Gel 15 Gm Gel..Gram.) 15 gm PO Q15M PRN; Protocol PRN Reason: per Hypoglycemia Standing Ord. Lactated Ringer's (Lr) 1,000 mls @ 100 mls/hr IVCONT .Q10H [facility] Last Infusion: 03/22/25 13:12 Dose: 0 mls/hr Documented By: SHANTEL Acetaminophen (Ofirmev) 1,000 mg in 100 mls @ 400 mls/hr IV Q6H [facility] Last Admin: 03/22/25 08:08 Dose: Not Given Documented By: SHANTEL Non-Admin Reason: Physician Approved Piperacillin Sod/Tazobactam (Sod 3.375 gm/ Sodium Chloride) 50 mls @ 100 mls/hr IV Q6H [facility] Last Admin: 03/22/25 13:07 Dose: 100 mls/hr Documented By: SHANTEL Insulin Human Lispro (Insulin Lispro 100 Unit/Ml 3 Ml Vial) 0 unit SUBCUT Q6H [facility]; Protocol Last Admin: 03/22/25 11:44 Dose: Not Given Documented By: SHANTEL Non-Admin Reason: No Insulin Coverage Melatonin (Melatonin 3 Mg Tablet) 6 mg PO BEDTIME PRN PRN Reason: Insomnia Morphine Sulfate (Morphine Sulfate 4 Mg/Ml Cartridge) 4 mg IVPUSH Q4H PRN; Protocol PRN Reason: Pain, Severe (Pain Scale 7-10) Last Admin: 03/22/25 07:58 Dose: 4 mg Documented By: SHANTEL Omeprazole (Omeprazole 20 Mg Capsule.Dr) 20 mg PO DAILY@1630 [facility] Last Admin: 03/21/25 15:59 Dose: 20 mg Documented By: LEON Ondansetron HCl (Ondansetron Hcl 4 Mg/2 Ml Vial) 4 mg IVPUSH Q8H PRN PRN Reason: Nausea and Vomiting Last Admin: 03/22/25 07:58 Dose: 4 mg Documented By: SHANTEL Oxycodone HCl (Oxycodone Hcl Immed Release 5 Mg Tablet) 5 mg PO Q4H PRN PRN Reason: Pain, Moderate(Pain Scale 4-6) Last Admin: 03/22/25 09:32 Dose: 5 mg Documented By: SHANTEL Sodium Chloride (0.9 % Sodium Chloride Flush 3 Ml Syringe) 3 ml IVFLUSH QSHIFT [facility] Last Admin: 03/22/25 08:12 Dose: Not Given Documented By: SHANTEL Non-Admin Reason: Previously Administered Valsartan (Valsartan 160 Mg Tablet) 160 mg PO DAILY [facility] Last Admin: 03/22/25 09:31 Dose: 160 mg Documented By: SHANTEL Labs 03/22/25 05:15 03/21/25 05:56 Labs: Laboratory Results - last 24 hr 03/19/25 03/21/25 03/21/25 16:51 17:27 20:33 MCV MCH MCHC RDW Plt Count MPV Immature Gran % (Auto) Neut % (Auto) Lymph % (Auto) [place] % (Auto) Eos % (Auto) Baso % (Auto) Lymph # (Auto) [place] # (Auto) Eos # (Auto) Baso # (Auto) Abs Immat Gran (auto) Absolute Neuts (auto) Absolute Nucleated RBC Nucleated RBC % (auto) POC Glucose 120 H 112 Crossmatch See Detail 03/21/25 03/22/25 03/22/25 23:34 05:15 05:26 MCV 67.5 L MCH 20.9 L MCHC 31.0 RDW 20.3 H Plt Count 483 H MPV 8.5 L Immature Gran % (Auto) 0.9 H Neut % (Auto) 85.2 H Lymph % (Auto) 6.5 L [place] % (Auto) 7.3 Eos % (Auto) 0.0 Baso % (Auto) 0.1 Lymph # (Auto) 1.5 [place] # (Auto) 1.6 H Eos # (Auto) 0.0 Baso # (Auto) 0.0 Abs Immat Gran (auto) 0.21 H Absolute Neuts (auto) 19.0 H Absolute Nucleated RBC 0.000 Nucleated RBC % (auto) 0.0 POC Glucose 112 107 Crossmatch 03/22/25 03/22/25 07:34 11:27 MCV MCH MCHC RDW Plt Count MPV Immature Gran % (Auto) Neut % (Auto) Lymph % (Auto) [place] % (Auto) Eos % (Auto) Baso % (Auto) Lymph # (Auto) [place] # (Auto) Eos # (Auto) Baso # (Auto) Abs Immat Gran (auto) Absolute Neuts (auto) Absolute Nucleated RBC Nucleated RBC % (auto) POC Glucose 94 102 Crossmatch Assessment and Plan (1) Diverticulitis of colon with perforation: Status: Acute Plan Patient admitted by general surgery for diverticulitis with sigmoid colon perforation and abscess 1.Diverticulitis with colon perforation/abscess -- s/p open sig colectomy, MACEY, end colostomy, bladder lac repair - POD #1 - Zosyn(2) - plan as per surgery 2.Iron deficiency anemia -hemoglobin stable 3.DM II - hold metformin until adequate p.o. -acceptable control off therapies -lispro correctional scale -adjust as indicated 4.HTN -BP acceptable off therapies -add back when clinically indicated Thank you for allowing me to participate in the pt's care. Will follow along. Please contact the medical team if any questions or concerns. Quality Stroke Does the patient have a stroke diagnosis?: No VTE Prior VTE?: No VTE Risk Level:: Medical - moderate - high VTE Device Contraindication: N/A - Device Ordered VTE Drug Contraindication: N/A - Med Ordered
[2025-03-22 16:18] LABS: Glucose, Whole Blood 99 mg/dL (60-115)
[2025-03-22] MEDS: 0.9 % Sodium Chloride Flush 3 ML SYRINGE IVFLUSH (16:21)
[2025-03-22 20:15] LABS: Glucose, Whole Blood 95 mg/dL (60-115)
[2025-03-23 03:28] VITALS: BP 109/58; PULSE 86; RESP 16; TEMP 36.3; O2SAT 92
[2025-03-23] MEDS: Lactated Ringers 1,000 ML 100 ML IVCONT (05:23)
[2025-03-23 06:16] LABS: MANUAL DIFF FLAG NO
[2025-03-23 06:27] LABS: Hematocrit 26.3 % (37.0-47.0); Hemoglobin 8.0 g/dl (12.0-16.0); Imm Gran Abs Auto 0.21 X10*3/uL (0.00-0.03); Imm Gran Pct Auto 1.0 % (0.0-0.4); Lymphocytes Absolute Auto 1.8 X10*3/uL (1.2-4.9); Mean Corpuscular HGB Conc 30.4 g/dl (31.0-35.0); Mean Corpuscular Hemoglobin 20.9 pg (27.0-33.0); Mean Corpuscular Volume 68.7 fL (80.0-98.0); NRBC Abs Auto 0.000 X10*3/uL (0.0-0.012); NRBC Pct Auto 0.0 /100WBC (0.0-0.2); Platelet Count 494 X10*3/uL (160-400); Red Blood Count 3.83 X10*6/uL (4.20-5.50); White Blood Count 20.4 X10*3/uL (4.8-10.8)
[2025-03-23 07:20] LABS: Glucose, Whole Blood 86 mg/dL (60-115)
[2025-03-23 07:34] VITALS: BP 112/59; PULSE 93; RESP 16; TEMP 36; O2SAT 93
--- NOTE | 2025-03-23 09:39 | PM.PNGS ---
Subjective Subjective Date of Service: 03/23/25 Interval history: Patient feels improved today. She is tolerating clear liquids without nausea or increased pain. Ostomy is functioning well. Physical Exam Vital Signs: Vital Signs: Last Vital Signs Temp 96.8 F 03/23/25 07:34 Pulse 93 03/23/25 07:34 Resp 16 03/23/25 07:34 BP 112/59 L 03/23/25 07:34 Pulse Ox 93 03/23/25 07:34 O2 Del Method Room Air 03/23/25 07:34 O2 Flow Rate 92 03/21/25 23:30 BMI result Body Mass Index 41.6 Const: General: no acute distress Nutritional Appearance: well nourished Orientation/consciousness: patient oriented x3 Limitations: no limitations Resp: Effort & Inspection: normal respiratory effort, no audible wheezes, no cough and no respiratory distress GI: Other: Abdominal incision is clean and intact without redness or discharge. Ostomy is slightly darker but still viable and patent filled with stool and gas Skin: Other: Warm, dry, no rashes Neuro: General: patient oriented x3 Extrem: General: Yes no pedal edema Objective Data Active Medications Atorvastatin Calcium (Atorvastatin Calcium 20 Mg Tablet) 20 mg PO BEDTIME [facility] Last Admin: 03/22/25 20:34 Dose: 20 mg Documented By: SAMARIA Calcium Carbonate (Calcium Carbonate 750 Mg Tab.Chew) 750 mg PO Q4H PRN PRN Reason: Heartburn Dextrose (Dextrose 50 % 25 Gm/50 Ml Syringe) 25 gm IVPUSH Q15M PRN; Protocol PRN Reason: per Hypoglycemia Standing Ord. Dextrose (Dextrose 50 % 25 Gm/50 Ml Syringe) 25 gm IVPUSH Q15M PRN; Protocol PRN Reason: per Hypoglycemia Standing Ord. Escitalopram Oxalate (Escitalopram Oxalate 10 Mg Tablet) 10 mg PO BEDTIME [facility] Last Admin: 03/22/25 20:34 Dose: 10 mg Documented By: SAMARIA Glucose (Glucose Gel 15 Gm Gel..Gram.) 15 gm PO Q15M PRN; Protocol PRN Reason: per Hypoglycemia Standing Ord. Glucose (Glucose Gel 15 Gm Gel..Gram.) 15 gm PO Q15M PRN; Protocol PRN Reason: per Hypoglycemia Standing Ord. Acetaminophen (Ofirmev) 1,000 mg in 100 mls @ 400 mls/hr IV Q6H [facility] Last Admin: 03/23/25 08:07 Dose: 400 mls/hr Documented By: SHANTEL Piperacillin Sod/Tazobactam (Sod 3.375 gm/ Sodium Chloride) 50 mls @ 100 mls/hr IV Q6H [facility] Last Infusion: 03/23/25 07:04 Dose: Infused Documented By: SHANTEL Insulin Human Lispro (Insulin Lispro 100 Unit/Ml 3 Ml Vial) 0 unit SUBCUT QIDACHS [facility]; Protocol Last Admin: 03/23/25 07:29 Dose: Not Given Documented By: SHANTEL Non-Admin Reason: No Insulin Coverage Melatonin (Melatonin 3 Mg Tablet) 6 mg PO BEDTIME PRN PRN Reason: Insomnia Morphine Sulfate (Morphine Sulfate 4 Mg/Ml Cartridge) 4 mg IVPUSH Q4H PRN; Protocol PRN Reason: Pain, Severe (Pain Scale 7-10) Last Admin: 03/23/25 05:29 Dose: 4 mg Documented By: SAMARIA Omeprazole (Omeprazole 20 Mg Capsule.Dr) 20 mg PO DAILY@1630 [facility] Last Admin: 03/22/25 16:13 Dose: 20 mg Documented By: SHANTEL Ondansetron HCl (Ondansetron Hcl 4 Mg/2 Ml Vial) 4 mg IVPUSH Q8H PRN PRN Reason: Nausea and Vomiting Last Admin: 03/22/25 07:58 Dose: 4 mg Documented By: SHANTEL Oxycodone HCl (Oxycodone Hcl Immed Release 5 Mg Tablet) 5 mg PO Q4H PRN PRN Reason: Pain, Moderate(Pain Scale 4-6) Last Admin: 03/22/25 19:18 Dose: 5 mg Documented By: SAMARIA Sodium Chloride (0.9 % Sodium Chloride Flush 3 Ml Syringe) [facility] Admin: 03/23/25 08:10 Dose: Not Given Documented By: SHANTEL Non-Admin Reason: Previously Administered Valsartan (Valsartan 160 Mg Tablet) 160 mg PO DAILY [facility] Last Admin: 03/23/25 08:07 Dose: 160 mg Documented By: SHANTEL Labs 03/23/25 05:49 03/21/25 05:56 Labs: Laboratory Results - last 24 hr 03/22/25 03/22/25 03/22/25 11:27 16:14 20:10 MCV MCH MCHC RDW Plt Count MPV Immature Gran % (Auto) Neut % (Auto) Lymph % (Auto) [place] % (Auto) Eos % (Auto) Baso % (Auto) Lymph # (Auto) [place] # (Auto) Eos # (Auto) Baso # (Auto) Abs Immat Gran (auto) Absolute Neuts (auto) Absolute Nucleated RBC Nucleated RBC % (auto) POC Glucose 102 99 95 03/23/25 03/23/25 05:49 07:14 MCV 68.7 L MCH 20.9 L MCHC 30.4 L RDW 20.6 H Plt Count 494 H MPV 8.5 L Immature Gran % (Auto) 1.0 H Neut % (Auto) 83.5 H Lymph % (Auto) 8.7 L [place] % (Auto) 6.0 Eos % (Auto) 0.6 Baso % (Auto) 0.2 Lymph # (Auto) 1.8 [place] # (Auto) 1.2 Eos # (Auto) 0.1 Baso # (Auto) 0.1 Abs Immat Gran (auto) 0.21 H Absolute Neuts (auto) 17.0 H Absolute Nucleated RBC 0.000 Nucleated RBC % (auto) 0.0 POC Glucose 86 Procedures Date of Service Date of Service: 03/23/25 Progress Note: A&P Assessment and plan (1) Colostomy in place: Status: Acute Plan 64-year-old female patient, POD 3 status post hand assisted laparoscopic resection of sigmoid, resection of large cavity containing stool with repair of large tear of bladder wall, end colostomy in the left lower quadrant. Patient feels improved with decreased abdominal pain but not much of an appetite. WBC 20, H&H remained stable Plan: Advance diet to regular, continue IV antibiotics, stop IV fluids Encouraged continued out of bed and ambulation, incentive spirometry Continue Saleem catheter drainage, NADINE drainage Time Spent With Patient Time: Total time managing care of this patient today ____ minutes. Quality Stroke Does the patient have a stroke diagnosis?: No VTE Prior VTE?: No VTE Risk Level:: Medical - moderate - high VTE Device Contraindication: N/A - Device Ordered VTE Drug Contraindication: N/A - Med Ordered
[2025-03-23 11:34] VITALS: BP 113/56; PULSE 94; RESP 16; TEMP 36; O2SAT 93
--- NOTE | 2025-03-23 12:34 | HO.PM.IMPN ---
Subjective Subjective Date of Service: 03/23/25 Interval History: Continues to improve. Out of bed to chair without issue. Tolerating advancement of diet. Colostomy with stool Review of Systems Denies chest pain Denies shortness of breath Admits to abdominal pain denies nausea vomiting diarrhea Denies fever chills Physical Exam Vital Signs: Vital Signs: Last Vital Signs Temp 96.8 F 03/23/25 11:34 Pulse 94 03/23/25 11:34 Resp 16 03/23/25 11:34 BP 113/56 L 03/23/25 11:34 Pulse Ox 93 03/23/25 11:34 O2 Del Method Room Air 03/23/25 11:34 O2 Flow Rate 92 03/21/25 23:30 BMI result Body Mass Index 41.6 Const: Other: Awake alert no acute distress Resp: Other: Clear to auscultation bilaterally no rales rhonchi or wheeze Cardio: Other: No S4; positive S1-S2; no S3 murmurs rubs or gallops GI: Other: Stool in colostomy bag. Dressing clean dry and intact. Quiet bowel sounds Extrem: Other: No edema bilaterally Objective Data Active Medications Atorvastatin Calcium (Atorvastatin Calcium 20 Mg Tablet) 20 mg PO BEDTIME [facility] Last Admin: 03/22/25 20:34 Dose: 20 mg Documented By: SAMARIA Calcium Carbonate (Calcium Carbonate 750 Mg Tab.Chew) 750 mg PO Q4H PRN PRN Reason: Heartburn Escitalopram Oxalate (Escitalopram Oxalate 10 Mg Tablet) 10 mg PO BEDTIME [facility] Last Admin: 03/22/25 20:34 Dose: 10 mg Documented By: SAMARIA Acetaminophen (Ofirmev) 1,000 mg in 100 mls @ 400 mls/hr IV Q6H [facility] Last Infusion: 03/23/25 09:40 Dose: Infused Documented By: SHANTEL Piperacillin Sod/Tazobactam (Sod 3.375 gm/ Sodium Chloride) 50 mls @ 100 mls/hr IV Q6H [facility] Last Admin: 03/23/25 12:21 Dose: 100 mls/hr Documented By: SHANTEL Melatonin (Melatonin 3 Mg Tablet) 6 mg PO BEDTIME PRN PRN Reason: Insomnia Morphine Sulfate (Morphine Sulfate 4 Mg/Ml Cartridge) 4 mg IVPUSH Q4H PRN; Protocol PRN Reason: Pain, Severe (Pain Scale 7-10) Last Admin: 03/23/25 10:59 Dose: 4 mg Documented By: SHANTEL Omeprazole (Omeprazole 20 Mg Capsule.Dr) 20 mg PO DAILY@1630 [facility] Last Admin: 03/22/25 16:13 Dose: 20 mg Documented By: SHANTEL Ondansetron HCl (Ondansetron Hcl 4 Mg/2 Ml Vial) 4 mg IVPUSH Q8H PRN PRN Reason: Nausea and Vomiting Last Admin: 03/22/25 07:58 Dose: 4 mg Documented By: SHANTEL Oxycodone HCl (Oxycodone Hcl Immed Release 5 Mg Tablet) 5 mg PO Q4H PRN PRN Reason: Pain, Moderate(Pain Scale 4-6) Last Admin: 03/22/25 19:18 Dose: 5 mg Documented By: SAMARIA Sodium Chloride (0.9 % Sodium Chloride Flush 3 Ml Syringe) 3 ml IVFLUSH QSHIFT [facility] Last Admin: 03/23/25 08:10 Dose: Not Given Documented By: SHANTEL Non-Admin Reason: Previously Administered Valsartan (Valsartan 160 Mg Tablet) 160 mg PO DAILY [facility] Last Admin: 03/23/25 08:07 Dose: 160 mg Documented By: SHANTEL Labs 03/23/25 05:49 03/21/25 05:56 Labs: Laboratory Results - last 24 hr 03/22/25 03/22/25 03/23/25 16:14 20:10 05:49 MCV 68.7 L MCH 20.9 L MCHC 30.4 L RDW 20.6 H Plt Count 494 H MPV 8.5 L Immature Gran % (Auto) 1.0 H Neut % (Auto) 83.5 H Lymph % (Auto) 8.7 L [place] % (Auto) 6.0 Eos % (Auto) 0.6 Baso % (Auto) 0.2 Lymph # (Auto) 1.8 [place] # (Auto) 1.2 Eos # (Auto) 0.1 Baso # (Auto) 0.1 Abs Immat Gran (auto) 0.21 H Absolute Neuts (auto) 17.0 H Absolute Nucleated RBC 0.000 Nucleated RBC % (auto) 0.0 POC Glucose 99 95 03/23/25 07:14 MCV MCH MCHC RDW Plt Count MPV Immature Gran % (Auto) Neut % (Auto) Lymph % (Auto) [place] % (Auto) Eos % (Auto) Baso % (Auto) Lymph # (Auto) [place] # (Auto) Eos # (Auto) Baso # (Auto) Abs Immat Gran (auto) Absolute Neuts (auto) Absolute Nucleated RBC Nucleated RBC % (auto) POC Glucose 86 Assessment and Plan (1) Diverticulitis of colon with perforation: Status: Acute (2) Iron deficiency anemia: Status: Acute Plan Patient admitted by general surgery for diverticulitis with sigmoid colon perforation and abscess 1.Diverticulitis with colon perforation/abscess -- s/p open sig colectomy, MACEY, end colostomy, bladder lac repair - POD #1 - Zosyn(3) - plan as per surgery 2.Iron deficiency anemia -hemoglobin stable 3.DM II - hold metformin until adequate p.o. -acceptable control off therapies -lispro correctional scale -adjust as indicated 4.HTN -BP acceptable off therapies -add back when clinically indicated Thank you for allowing me to participate in the pt's care. Will follow along. Please contact the medical team if any questions or concerns. Quality Stroke Does the patient have a stroke diagnosis?: No VTE Prior VTE?: No VTE Risk Level:: Medical - moderate - high VTE Device Contraindication: N/A - Device Ordered VTE Drug Contraindication: N/A - Med Ordered
[2025-03-23 15:09] VITALS: BP 115/58; PULSE 77; RESP 18; TEMP 36.4; O2SAT 95
[2025-03-23] MEDS: oxyCODONE HCl Immed Release 5 MG TABLET PO (16:10)
[2025-03-23 19:24] VITALS: BP 110/56; PULSE 102; RESP 18; TEMP 37.3; O2SAT 93
[2025-03-23] MEDS: 0.9 % Sodium Chloride Flush 3 ML SYRINGE IVFLUSH (20:50)
[2025-03-24 03:24] VITALS: BP 127/60; PULSE 94; RESP 16; TEMP 37.1; O2SAT 93
--- NOTE | 2025-03-24 07:40 | P.PNGS_ITS ---
Subjective Subjective Date of Service: 03/24/25 <Silvia Benitez PA-C - Last Filed: 03/24/25 07:45> 03/24/25 <Declan Vaughan MD - Last Filed: 03/24/25 10:50> Interval history: Had an uneventful weekend. Pain is getting better overall, still very sore. Now on solid diet and tolerated a small amount of dinner last night. OOB and ambulated to windows last night. Emptied her ostomy appliance with the nurse last night. <Silvia Benitez PA-C - Last Filed: 03/24/25 07:45> Physical Exam 2 Vital Signs: Vital Signs: Last Vital Signs Temp 98.8 F 03/24/25 03:24 Pulse 94 03/24/25 03:24 Resp 16 03/24/25 03:24 BP 127/60 03/24/25 03:24 Pulse Ox 93 03/24/25 03:24 O2 Del Method Room Air 03/24/25 03:24 O2 Flow Rate 92 03/21/25 23:30 BMI result Body Mass Index 41.6 <Silvia Benitez PA-C - Last Filed: 03/24/25 07:45> Const: General: comfortable, no acute distress and alert <JADA De La Fuente Last Filed: 03/24/25 07:45> Orientation/consciousness: patient oriented x3 <JADA De La Fuente Last Filed: 03/24/25 07:45> Resp: Effort & Inspection: normal respiratory effort <JADA De La Fuente Last Filed: 03/24/25 07:45> GI: Other: incision without erythema, wound elin removed ostomy retracted, pink centrally, large amount of liquid/soft stool in appliance soft, incisional tenderness NADINE drain somewhat sero-purulent appearing output <JADA De La Fuente Last Filed: 03/24/25 07:45> Palpation (GI): no guarding <JADA De La Fuente Last Filed: 03/24/25 07:45> : Other: ortiz in place, straw colored urine <JADA De La Fuente Last Filed: 03/24/25 07:45> Skin: General skin exam: no rashes or lesions noted <Silvia Benitez PA-C - Last Filed: 03/24/25 07:45> Neuro: General: patient oriented x3 and moves all extremities <Silvia Benitez PA-C - Last Filed: 03/24/25 07:45> Objective Data Active Medications Atorvastatin Calcium (Atorvastatin Calcium 20 Mg Tablet) 20 mg PO BEDTIME [facility] Last Admin: 03/23/25 20:46 Dose: 20 mg Documented By: SANDRA Calcium Carbonate (Calcium Carbonate 750 Mg Tab.Chew) 750 mg PO Q4H PRN PRN Reason: Heartburn Escitalopram Oxalate (Escitalopram Oxalate 10 Mg Tablet) 10 mg PO BEDTIME [facility] Last Admin: 03/23/25 20:46 Dose: 10 mg Documented By: SANDRA Acetaminophen (Ofirmev) 1,000 mg in 100 mls @ 400 mls/hr IV Q6H [facility] Last Admin: 03/24/25 07:32 Dose: 400 mls/hr Documented By: ROYCE Piperacillin Sod/Tazobactam (Sod 3.375 gm/ Sodium Chloride) 50 mls @ 100 mls/hr IV Q6H [facility] Last Infusion: 03/24/25 07:40 Dose: Infused Documented By: ROYCE Melatonin (Melatonin 3 Mg Tablet) 6 mg PO BEDTIME PRN PRN Reason: Insomnia Morphine Sulfate (Morphine Sulfate 4 Mg/Ml Cartridge) 4 mg IVPUSH Q4H PRN; Protocol PRN Reason: Pain, Severe (Pain Scale 7-10) Last Admin: 03/24/25 07:28 Dose: 4 mg Documented By: ROYCE Omeprazole (Omeprazole 20 Mg Capsule.Dr) 20 mg PO DAILY@1630 [facility] Last Admin: 03/23/25 16:04 Dose: 20 mg Documented By: SHANTEL Ondansetron HCl (Ondansetron Hcl 4 Mg/2 Ml Vial) 4 mg IVPUSH Q8H PRN PRN Reason: Nausea and Vomiting Last Admin: 03/22/25 07:58 Dose: 4 mg Documented By: SHANTEL Oxycodone HCl (Oxycodone Hcl Immed Release 5 Mg Tablet) 5 mg PO Q4H PRN PRN Reason: Pain, Moderate(Pain Scale 4-6) Last Admin: 03/23/25 16:10 Dose: 5 mg Documented By: SHANTEL Sodium Chloride (0.9 % Sodium Chloride Flush 3 Ml Syringe) 3 ml IVFLUSH QSHIFT [facility] Last Admin: 03/23/25 20:50 Dose: 3 ml Documented By: SANDRA Valsartan (Valsartan 160 Mg Tablet) 160 mg PO DAILY [facility] Last Admin: 03/23/25 08:07 Dose: 160 mg Documented By: SHANTEL <Silvia Benitez PA-C - Last Filed: 03/24/25 07:45> Labs CBC & Chem 7: 03/24/25 09:48 03/21/25 05:56 <Silvia Benitez PA-C - Last Filed: 03/24/25 07:45> Procedures Date of Service Date of Service: 03/24/25 <Silvia Benitez PA-C - Last Filed: 03/24/25 07:45> 03/24/25 <Declan Vaughan MD - Last Filed: 03/24/25 10:50> Progress Note: A&P Assessment and plan (1) Diverticulitis of colon with perforation: Status: Acute <Silvia Benitez PA-C - Last Filed: 03/24/25 07:45> Assessment and Plan: Patient says she feels well Tolerating diet Good stoma function Urine has been cleared Abdomen is soft and benign WBC trending down Stoma care Clinically doing Continue to trend WBC No fever Seen and examined independently <Declan Vaughan MD - Last Filed: 03/24/25 10:50> (2) Colostomy in place: Status: Acute <Silvia Benitez PA-C - Last Filed: 03/24/25 07:45> Assessment and Plan: 64-year-old female patient, POD4 status post hand assisted laparoscopic resection of sigmoid, resection of large cavity containing stool with repair of large tear of bladder wall, end colostomy in the left lower quadrant. Continues to do fairly well post op, WBC count has been persistently elevated, awaiting repeat CBC this am. Ostomy functioning well, cont ostomy education. NADINE with seropurulent drainage, keep in place. Keep ortiz. Encouraged OOB/ambulation and increasing activity. Hopefully WBC begins to downtrend and improve, if not may need repeat CT scan to assess for abscess. Cont IV abx. <HANY De La Fuente - Last Filed: 03/24/25 07:45> Time Spent With Patient Time: Total time managing care of this patient today ____ minutes. <Silvia Benitez PA-C - Last Filed: 03/24/25 07:45> Quality Stroke Does the patient have a stroke diagnosis?: No <Silvia Benitez PA-C - Last Filed: 03/24/25 07:45> VTE Prior VTE?: No <Silvia Benitez PA-C - Last Filed: 03/24/25 07:45> VTE Risk Level:: Medical - moderate - high <Silvia Benitez PA-C - Last Filed: 03/24/25 07:45> VTE Device Contraindication: N/A - Device Ordered <Silvia Benitez PA-C - Last Filed: 03/24/25 07:45> VTE Drug Contraindication: N/A - Med Ordered <Silvia Benitez PA-C - Last Filed: 03/24/25 07:45>
[2025-03-24 08:00] VITALS: BP 143/63; PULSE 95; RESP 18; TEMP 36.1; O2SAT 93
[2025-03-24] MEDS: 0.9 % Sodium Chloride Flush 3 ML SYRINGE IVFLUSH ×2 (08:00→20:45)
--- NOTE | 2025-03-24 08:46 | MHC.CM.PN ---
Addendum entered by Glenis Patel RN 03/24/25 12:21: [facility] accepted. Patient's UMR has 30% coinsurance. Patient aware and agreeable to cost. She reports she is working w/ nursing for ostomy care and is feeling confident. She lives w/ her son, daughter and other family, but does not wish for them to be involved in ostomy care. CM will continue to follow. Original Note: Patient w/ new ostomy. Referrals placed to [facility]NA[facility] via [facility].
[2025-03-24 09:51] LABS: MANUAL DIFF FLAG NO
[2025-03-24 09:58] LABS: Hematocrit 25.3 % (37.0-47.0); Hemoglobin 7.8 g/dl (12.0-16.0); Imm Gran Abs Auto 0.22 X10*3/uL (0.00-0.03); Imm Gran Pct Auto 1.3 % (0.0-0.4); Lymphocytes Absolute Auto 1.5 X10*3/uL (1.2-4.9); Mean Corpuscular HGB Conc 30.8 g/dl (31.0-35.0); Mean Corpuscular Hemoglobin 21.3 pg (27.0-33.0); Mean Corpuscular Volume 68.9 fL (80.0-98.0); NRBC Abs Auto 0.000 X10*3/uL (0.0-0.012); NRBC Pct Auto 0.0 /100WBC (0.0-0.2); Platelet Count 497 X10*3/uL (160-400); Red Blood Count 3.67 X10*6/uL (4.20-5.50); White Blood Count 17.4 X10*3/uL (4.8-10.8)
[2025-03-24] MEDS: oxyCODONE HCl Immed Release 5 MG TABLET PO (11:29)
--- NOTE | 2025-03-24 12:49 | HO.PM.IMPN ---
Subjective Subjective Date of Service: 03/24/25 Interval History: afebrile, tolerating diet, pain improved Review of Systems Review of Systems: Yes all other systems are reviewed and are negative Physical Exam Vital Signs: Vital Signs: Last Vital Signs Temp 97.0 F 03/24/25 08:00 Pulse 95 03/24/25 08:00 Resp 18 03/24/25 08:00 BP 143/63 H 03/24/25 08:00 Pulse Ox 93 03/24/25 08:00 O2 Del Method Room Air 03/24/25 08:00 O2 Flow Rate 92 03/21/25 23:30 BMI result Body Mass Index 41.6 Gen: in no acute distress HEENT: sclera anicteric, moist mucus membranes Neck: supple Lungs: clear to auscultation bilaterally Heart: regular rate and rhythm, no murmurs Abd: soft, obese, ostomy with soft stool, NADINE with seropurulent drainage, Saleem with clear urine, incisions without erythema Ext: no edema Skin: warm/well-perfused Neuro: alert and oriented x3, no focal findings Psych: appropriate affect Objective Data Active Medications Atorvastatin Calcium (Atorvastatin Calcium 20 Mg Tablet) 20 mg PO BEDTIME [facility]AE Last Admin: 03/23/25 20:46 Dose: 20 mg Documented By: SANDRA Calcium Carbonate (Calcium Carbonate 750 Mg Tab.Chew) 750 mg PO Q4H PRN PRN Reason: Heartburn Escitalopram Oxalate (Escitalopram Oxalate 10 Mg Tablet) 10 mg PO BEDTIME SHAE Last Admin: 03/23/25 20:46 Dose: 10 mg Documented By: SANDRA Acetaminophen (Ofirmev) 1,000 mg in 100 mls @ 400 mls/hr IV Q6H [facility] Last Infusion: 03/24/25 08:19 Dose: Infused Documented By: ROYCE Piperacillin Sod/Tazobactam (Sod 3.375 gm/ Sodium Chloride) 50 mls @ 100 mls/hr IV Q6H [facility] Last Infusion: 03/24/25 07:40 Dose: Infused Documented By: ROYCE Melatonin (Melatonin 3 Mg Tablet) 6 mg PO BEDTIME PRN PRN Reason: Insomnia Morphine Sulfate (Morphine Sulfate 4 Mg/Ml Cartridge) 4 mg IVPUSH Q4H PRN; Protocol PRN Reason: Pain, Severe (Pain Scale 7-10) Last Admin: 03/24/25 07:28 Dose: 4 mg Documented By: ROYCE Omeprazole (Omeprazole 20 Mg Capsule.Dr) 20 mg PO DAILY@1630 [facility] Last Admin: 03/23/25 16:04 Dose: 20 mg Documented By: SHANTEL Ondansetron HCl (Ondansetron Hcl 4 Mg/2 Ml Vial) 4 mg IVPUSH Q8H PRN PRN Reason: Nausea and Vomiting Last Admin: 03/22/25 07:58 Dose: 4 mg Documented By: SHANTEL Oxycodone HCl (Oxycodone Hcl Immed Release 5 Mg Tablet) 5 mg PO Q4H PRN PRN Reason: Pain, Moderate(Pain Scale 4-6) Last Admin: 03/24/25 11:29 Dose: 5 mg Documented By: ROYCE Sodium Chloride (0.9 % Sodium Chloride Flush 3 Ml Syringe) 3 ml IVFLUSH QSHIFT [facility] Last Admin: 03/24/25 08:00 Dose: 3 ml Documented By: ROYCE Valsartan (Valsartan 160 Mg Tablet) 160 mg PO DAILY [facility] Last Admin: 03/24/25 08:19 Dose: 160 mg Documented By: ROYCE Labs 03/24/25 09:48 03/21/25 05:56 Labs: Laboratory Results - last 24 hr 03/24/25 09:48 MCV 68.9 L MCH 21.3 L MCHC 30.8 L RDW 20.8 H Plt Count 497 H MPV 8.4 L Immature Gran % (Auto) 1.3 H Neut % (Auto) 81.3 H Lymph % (Auto) 8.9 L [place] % (Auto) 7.3 Eos % (Auto) 1.0 Baso % (Auto) 0.2 Lymph # (Auto) 1.5 [place] # (Auto) 1.3 H Eos # (Auto) 0.2 Baso # (Auto) 0.0 Abs Immat Gran (auto) 0.22 H Absolute Neuts (auto) 14.1 H Absolute Nucleated RBC 0.000 Nucleated RBC % (auto) 0.0 Assessment and Plan (1) Diverticulitis of colon with perforation: Status: Acute (2) Iron deficiency anemia: Status: Acute Plan d6, 64yo F with DM2, obesity, and HTN on Gen Surg service for diverticulitis with colon perforation/abscess, s/p hand-assisted lapraoscopic sigmoid resection and resection of large cavity containing stool with repair of large bladder wall tear, end-colostomy; Medicine following for management of comorbid issues diverticulitis with colon perforation/abscess - 03/21- piperacillin-tazobactam, WBCs improving FANNY - will eventually need iron repletion; H+H stable DM2 - hold MTF, BGs under control HTN - valsartan HLD - atorvastatin mood disorder - escitalopram VTE ppx: enoxaparin dispo: TBD In my clinical judgment, the patient requires continued inpatient hospitalization for the following reasons: postop care, IV ABX Total time managing care of this patient today: 35 minutes. Quality Stroke Does the patient have a stroke diagnosis?: No VTE Prior VTE?: No VTE Risk Level:: Medical - moderate - high VTE Device Contraindication: N/A - Device Ordered VTE Drug Contraindication: N/A - Med Ordered
--- NOTE | 2025-03-24 13:48 | HO.OSTOMY ---
Ostomy Consult: Initial Teaching 64yr old female admitted to [facility] on 03/19/25 see H&P for detailed history and admission.? Consult for new ostomy teaching. ?She had an End Colostomy creation on 03/20/[address] Vaughan. ?Upon entry into patient's room, she is lying in her bed, she is alert and oriented x 3, she currently has no complaints. ?Introductions were completed, she is agreeable to continuing with teaching. ? We discussed his pain control at 5/10 at the current moment, she reports increasing the use of her IS and ambulating the entire unit. ?We began by discussing general knowledge about the Colostomy and questions she had. ?We discussed opening and closing the ostomy pouch. She was able to independently provide a return demonstration on an empty pouch. ?She had not yet emptied her pouch, small maount of liquid stool noted in pouch not yet ready to empty. We discussed the importance of emptying pouch when 1/3 to 1/2 full, how to empty pouch, and lining water with toilet paper to prevent splash back. With an empty Coloplast pouch she performed a demonstration. She was also educated on when to contact pulverizing and sifting operator/Dr Vaughan's office/seek emergency medical treatment. Patient was given some ostomy pouches for transition to home. Aware that Rx written for pouches and rings will be sent by Outpt nurse to [place] for home delivery.? Reviewed written education with patient and left at bedside for further review. ?She did watch the education videos supplied by [facility]. Permission was granted for pouch assessment and a silent leak was noted.? Stoma has black necrotic edges with dark red central area and appears viable.?We performed a stoma model pouch change. She was agreeable to a pouch change - she was advised to watch for the silent leak unfortunatly she is not able to see her stoma and the stoma sits within a large deep crease which will likely impact future pouching with suspected increased episodes of leaking. See photo below the peristoma skin is pink and puckering and deep with in crease. Flat pouch was used at this time do to concern for MCJ speration given how retraced the stoma is - she will likely need a convex pouch in the near future to encourage the stoma to sit above skin level. She observed as best she could the pouch change and had some questions. Brava barrier strip paste was used to fill crease and seal pouch. She reported having no questions at this time. ?Patient was made aware that I will return to bedside later in week for ongoing education - however to note patient seems to have a good understanding of care and material at this time. ?She will benefit from VNA services at time of discharge. ?All questions and concerns addressed at this time. Stoma with barrier strip paste in use prior to pouch application. Next teaching session goals: Demonstrate open and close independently Steps to a pouch change she is able to recall Midline is noted for creamy seropurulent material from most inferior per. Midline central areas is drainage orange oil like drainage - increased with palpation. TT To provider Silvia SIERRA from general surgery. We discussed the following steps: 1. Empty pouch before pouch change 2. Remove pouch using push/pull technique from top to bottom 3. Cleanse stoma and skin with tap water only - no soap or baby wipes 4. Pat dry 5. Measure stoma and cut new pouch no more than 1/8 inch larger than stoma and no smaller than stoma 6. If instructed by your ostomy nurse stretch barrier seal to the size of the stoma and press onto skin around stoma (up to the edge of the stoma but not onto the stoma) 7. Press the new pouch into place and hold for several minutes (close pouch tail) 8. Empty pouch when 1/3 to 1/2 full 9. Change pouch twice weekly on a schedule (for example, every Monday and ) and as needed for any leaking (feels like intense itch or burn at edge of stoma) 10. May order pre-cut pouches (already cut to size of stoma) once stoma measures the same size consistently. ?
[2025-03-24 15:10] VITALS: BP 113/56; PULSE 102; RESP 18; TEMP 36.9; O2SAT 94
[2025-03-24 20:00] VITALS: BP 120/57; PULSE 107; RESP 17; TEMP 36.4; O2SAT 94
[2025-03-25 03:47] VITALS: BP 112/53; PULSE 83; RESP 17; TEMP 36.1; O2SAT 94
--- NOTE | 2025-03-25 06:46 | P.PNGS_ITS ---
Subjective Subjective Date of Service: 03/25/25 <Liot - Last Filed: 03/25/25 07:08> 03/25/25 <Silvia Benitez PA-C - Last Filed: 03/25/25 07:39> 03/25/25 <Declan Vaughan MD - Last Filed: 03/25/25 08:49> Interval history: This is POD #5. No events overnight. Patient feels like she is slowly getting better, continues to have abdominal soreness 8/10 at worst, well- controlled with IV morphine and tylenol. She feels she has been needing the morphine less. She is motivated to ambulate OOB today and sit up in recliner. Tolerating solids without issue. Denies any other symptoms including nausea, vomiting, chest pain, or shortness of breath. <Holgeradriana - Last Filed: 03/25/25 07:08> Physical Exam 2 Exam: Exam: Comfortable appearing, in no acute distress. <Holgeradriana [facility] Last Filed: 03/25/25 07:08> Vital Signs: Vital Signs: Last Vital Signs Temp 96.9 F 03/25/25 03:47 Pulse 83 03/25/25 03:47 Resp 17 03/25/25 03:47 BP 112/53 L 03/25/25 03:47 Pulse Ox 94 03/25/25 03:47 O2 Del Method Room Air 03/25/25 03:47 O2 Flow Rate 92 03/21/25 23:30 BMI result Body Mass Index 41.6 <Holgeradriana - Last Filed: 03/25/25 07:08> Resp: Effort & Inspection: normal respiratory effort and able to speak in complete sentences <Lito - Last Filed: 03/25/25 07:08> GI: Other: Colostomy bag in LLQ, small amount of moderately hard nonbloody stool. <Lito - Last Filed: 03/25/25 07:08> Other: Colostomy bag in LLQ, small amount of moderately hard nonbloody stool. incision without erythema- cont with seropurulent drainage <Silvia Benitez PA-C - Last Filed: 03/25/25 07:39> Inspection: Yes incision (Dressings dry and intact.) and Yes other ( NADINE drain in RLQ, seropurulent drainage. ) <adriana [facility] Last Filed: 03/25/25 07:08> Palpation (GI): Soft to palpation, not firm, Tenderness to palpation present (GI) (diffusely), no guarding and not rigid <[facility] Last Filed: 03/25/25 07:08> Palpation (GI): Tenderness to palpation present (GI) (diffusely, mild) < Silvia Benitez PA-C - Last Filed: 03/25/25 07:39> : Other: Ortiz catheter in place, draining pale yellow urine without gross hematuria. <[facility] Last Filed: 03/25/25 07:08> Skin: General skin exam: no rashes or lesions noted <Silvia Benitez PA-C - Last Filed: 03/25/25 07:39> Neuro: Other: Alert and oriented x3. <adriana [facility] Last Filed: 03/25/25 07:08> Objective Data Active Medications Atorvastatin Calcium (Atorvastatin Calcium 20 Mg Tablet) 20 mg PO BEDTIME [facility] Last Admin: 03/24/25 20:40 Dose: 20 mg Documented By: SANDRA Calcium Carbonate (Calcium Carbonate 750 Mg Tab.Chew) 750 mg PO Q4H PRN PRN Reason: Heartburn Docusate Sodium (Docusate Sodium 100 Mg Capsule) 100 mg PO BID [facility] Last Admin: 03/24/25 20:39 Dose: 100 mg Documented By: SANDRA Escitalopram Oxalate (Escitalopram Oxalate 10 Mg Tablet) 10 mg PO BEDTIME [facility] Last Admin: 03/24/25 20:39 Dose: 10 mg Documented By: SANDRA Acetaminophen (Ofirmev) 1,000 mg in 100 mls @ 400 mls/hr IV Q6H [facility] Last Infusion: 03/25/25 02:00 Dose: Infused Documented By: SANDRA Piperacillin Sod/Tazobactam (Sod 3.375 gm/ Sodium Chloride) 50 mls @ 100 mls/hr IV Q6H [facility] Last Infusion: 03/25/25 02:33 Dose: Infused Documented By: SADNRA Melatonin (Melatonin 3 Mg Tablet) 6 mg PO BEDTIME PRN PRN Reason: Insomnia Morphine Sulfate (Morphine Sulfate 4 Mg/Ml Cartridge) 4 mg IVPUSH Q4H PRN; Protocol PRN Reason: Pain, Severe (Pain Scale 7-10) Last Admin: 03/25/25 06:28 Dose: 4 mg Documented By: MT Omeprazole (Omeprazole 20 Mg Capsule.Dr) 20 mg PO DAILY@1630 [facility] Last Admin: 03/24/25 15:28 Dose: 20 mg Documented By: DORIS Ondansetron HCl (Ondansetron Hcl 4 Mg/2 Ml Vial) 4 mg IVPUSH Q8H PRN PRN Reason: Nausea and Vomiting Last Admin: 03/22/25 07:58 Dose: 4 mg Documented By: SHANTEL Oxycodone HCl (Oxycodone Hcl Immed Release 5 Mg Tablet) 5 mg PO Q4H PRN PRN Reason: Pain, Moderate(Pain Scale 4-6) Last Admin: 03/24/25 11:29 Dose: 5 mg Documented By: ROYCE Sodium Chloride (0.9 % Sodium Chloride Flush 3 Ml Syringe) 3 ml IVFLUSH QSHIFT [facility] Last Admin: 03/24/25 20:45 Dose: 3 ml Documented By: SANDRA Valsartan (Valsartan 160 Mg Tablet) 160 mg PO DAILY [facility] Last Admin: 03/24/25 08:19 Dose: 160 mg Documented By: ROYCE <Lito Miller - Last Filed: 03/25/25 07:08> Labs CBC & Chem 7: 03/25/25 06:42 03/21/25 05:56 <Lito Miller - Last Filed: 03/25/25 07:08> Labs: Laboratory Results - last 24 hr 03/24/25 09:48 MCV 68.9 L MCH 21.3 L MCHC 30.8 L RDW 20.8 H Plt Count 497 H MPV 8.4 L Immature Gran % (Auto) 1.3 H Neut % (Auto) 81.3 H Lymph % (Auto) 8.9 L [place] % (Auto) 7.3 Eos % (Auto) 1.0 Baso % (Auto) 0.2 Lymph # (Auto) 1.5 [place] # (Auto) 1.3 H Eos # (Auto) 0.2 Baso # (Auto) 0.0 Abs Immat Gran (auto) 0.22 H Absolute Neuts (auto) 14.1 H Absolute Nucleated RBC 0.000 Nucleated RBC % (auto) 0.0 <Lito Miller - Last Filed: 03/25/25 07:08> Procedures Date of Service Date of Service: 03/25/25 <Lito Miller - Last Filed: 03/25/25 07:08> 03/25/25 <Silvia Benitez PA-C - Last Filed: 03/25/25 07:39> 03/25/25 <Declan Vaughan MD - Last Filed: 03/25/25 08:49> Progress Note: A&P Assessment and plan (1) Diverticulitis of colon with perforation: Status: Acute <Lito Miller - Last Filed: 03/25/25 07:08> Assessment and Plan: Feels well this morning Tolerating diet Good urine output, clear Stoma functioning well Abdomen is soft and benign NADINE drain seropurulent, small amounts WBC continues to trend down Continue IV antibiotics for now Stoma care Ambulate Doing well clinically Keep Ortiz in Family updated Seen and examined independently <Declan Vaughan MD - Last Filed: 03/25/25 08:49> Assessment and Plan: Patient is a 64 year old female with PMHx of diverticulitis of colon with perforation, iron deficiency anemia, and prediabetes who is s/p hand assisted laparoscopic resection of the sigmoid on 03/20, resection of large cavity containing stool, complicated by significant adhesions to bladder wall with subsequent bladder laceration and repair, end colostomy with ostomy bag in LLQ. This is post operative day #5. Patient overall seems to be improving. Continue ambulating and up in recliner as tolerated. Continue with solids as tolerated. Encourage fluid intake and continue with scheduled Colace for hard stools. Continue with ostomy education. Keep ortiz in place. Continue monitoring NADINE drain, small amount of seropurulent drainage present this morning. CBC significant for leukocytosis which appears to be downtrending, H+H consistent with preoperative levels given history of anemia, continue to monitor. Consider CT scan of ABD to evaluate for possible abscess if leukocytosis uptrends or persists. Continue IV Zosyn. <Lito Miller - Last Filed: 03/25/25 07:08> Patient is a 64 year old female with PMHx of diverticulitis of colon with perforation, iron deficiency anemia, and prediabetes who is s/p hand assisted laparoscopic resection of the sigmoid on 03/20, resection of large cavity containing stool, complicated by significant adhesions to bladder wall with subsequent bladder laceration and repair, end colostomy with ostomy bag in LLQ. This is post operative day #5. Patient overall seems to be improving. Continue ambulating and up in recliner as tolerated. Continue with solids as tolerated. Encourage fluid intake and continue with scheduled Colace for hard stools. Continue with ostomy education. Keep ortiz in place. Continue monitoring NADINE drain, small amount of seropurulent drainage present this morning. CBC significant for leukocytosis which appears to be downtrending, H+H consistent with preoperative levels given history of anemia, continue to monitor. Consider CT scan of ABD to evaluate for possible abscess if leukocytosis uptrends or persists. Continue IV Zosyn. POD #5 s/p status post hand assisted laparoscopic resection of sigmoid, resection of large cavity containing stool with repair of large tear of bladder wall, end colostomy in the left lower quadrant. Continues to do fairly well post op. Incision and NADINE cont with seropurulent output. Keep NADINE and ortiz in place. WBC continues to downtrend, H/H stable. Cont IV zosyn, pain control. OOB and ambulation. <Silvia Benitez PA-C - Last Filed: 03/25/25 07:39> Time Spent With Patient Time: Total time managing care of this patient today ____ minutes. <Lito Last Filed: 03/25/25 07:08> Quality Stroke Does the patient have a stroke diagnosis?: No <Lito Last Filed: 03/25/25 07:08> VTE Prior VTE?: No <Lito Last Filed: 03/25/25 07:08> VTE Risk Level:: Medical - moderate - high <Lito Last Filed: 03/25/25 07:08> VTE Device Contraindication: N/A - Device Ordered <adriana Last Filed: 03/25/25 07:08> VTE Drug Contraindication: N/A - Med Ordered <adriana Last Filed: 03/25/25 07:08>
[2025-03-25 06:59] LABS: MANUAL DIFF FLAG NO
[2025-03-25 07:06] LABS: Hematocrit 25.9 % (37.0-47.0); Hemoglobin 7.9 g/dl (12.0-16.0); Imm Gran Abs Auto 0.23 X10*3/uL (0.00-0.03); Imm Gran Pct Auto 1.6 % (0.0-0.4); Lymphocytes Absolute Auto 1.4 X10*3/uL (1.2-4.9); Mean Corpuscular HGB Conc 30.5 g/dl (31.0-35.0); Mean Corpuscular Hemoglobin 20.6 pg (27.0-33.0); Mean Corpuscular Volume 67.6 fL (80.0-98.0); NRBC Abs Auto 0.000 X10*3/uL (0.0-0.012); NRBC Pct Auto 0.0 /100WBC (0.0-0.2); Platelet Count 519 X10*3/uL (160-400); Red Blood Count 3.83 X10*6/uL (4.20-5.50); White Blood Count 14.5 X10*3/uL (4.8-10.8)
[2025-03-25 08:00] VITALS: BP 122/62; PULSE 93; RESP 16; TEMP 36.2; O2SAT 95
--- NOTE | 2025-03-25 13:24 | P.PNIM_ITS ---
Subjective Subjective Date of Service: 03/25/25 Interval History: pain improving, WBCs down, tolerating diet, ambulating Review of Systems Review of Systems: Yes all other systems are reviewed and are negative Physical Exam 2 Vital Signs: Vital Signs: Last Vital Signs Temp 97.2 F 03/25/25 08:00 Pulse 93 03/25/25 08:00 Resp 16 03/25/25 08:00 BP 122/62 03/25/25 08:00 Pulse Ox 95 03/25/25 08:00 O2 Del Method Room Air 03/25/25 08:00 O2 Flow Rate 92 03/21/25 23:30 BMI result Body Mass Index 41.6 Gen: in no acute distress HEENT: sclera anicteric, moist mucus membranes Neck: supple Lungs: clear to auscultation bilaterally Heart: regular rate and rhythm, no murmurs Abd: soft, obese, ostomy with soft stool, NADINE with seropurulent drainage, Saleem with clear urine, incisions without erythema Ext: no edema Skin: warm/well-perfused Neuro: alert and oriented x3, no focal findings Psych: appropriate affect Objective Data Active Medications Atorvastatin Calcium (Atorvastatin Calcium 20 Mg Tablet) 20 mg PO BEDTIME [facility] Last Admin: 03/24/25 20:40 Dose: 20 mg Documented By: SANDRA Calcium Carbonate (Calcium Carbonate 750 Mg Tab.Chew) 750 mg PO Q4H PRN PRN Reason: Heartburn Docusate Sodium (Docusate Sodium 100 Mg Capsule) 100 mg PO BID [facility] Last Admin: 03/25/25 08:18 Dose: 100 mg Documented By: LIA Escitalopram Oxalate (Escitalopram Oxalate 10 Mg Tablet) 10 mg PO BEDTIME [facility] Last Admin: 03/24/25 20:39 Dose: 10 mg Documented By: SANDRA Acetaminophen (Ofirmev) 1,000 mg in 100 mls @ 400 mls/hr IV Q6H [facility] Last Infusion: 03/25/25 13:12 Dose: Infused Documented By: LIA Piperacillin Sod/Tazobactam (Sod 3.375 gm/ Sodium Chloride) 50 mls @ 100 mls/hr IV Q6H [facility] Last Infusion: 03/25/25 08:54 Dose: Infused Documented By: LIA Melatonin (Melatonin 3 Mg Tablet) 6 mg PO BEDTIME PRN PRN Reason: Insomnia Morphine Sulfate (Morphine Sulfate 4 Mg/Ml Cartridge) 4 mg IVPUSH Q4H PRN; Protocol PRN Reason: Pain, Severe (Pain Scale 7-10) Last Admin: 03/25/25 12:58 Dose: 4 mg Documented By: LIA Omeprazole (Omeprazole 20 Mg Capsule.Dr) 20 mg PO DAILY@1630 [facility] Last Admin: 03/24/25 15:28 Dose: 20 mg Documented By: DORIS Ondansetron HCl (Ondansetron Hcl 4 Mg/2 Ml Vial) 4 mg IVPUSH Q8H PRN PRN Reason: Nausea and Vomiting Last Admin: 03/22/25 07:58 Dose: 4 mg Documented By: SHANTEL Oxycodone HCl (Oxycodone Hcl Immed Release 5 Mg Tablet) 5 mg PO Q4H PRN PRN Reason: Pain, Moderate(Pain Scale 4-6) Last Admin: 03/24/25 11:29 Dose: 5 mg Documented By: ROYCE Sodium Chloride (0.9 % Sodium Chloride Flush 3 Ml Syringe) 3 ml IVFLUSH [facility] Last Admin: 03/25/25 13:04 Dose: Not Given Documented By: LIA Non-Admin Reason: Previously Administered Valsartan (Valsartan 160 Mg Tablet) 160 mg PO DAILY [facility] Last Admin: 03/25/25 08:18 Dose: 160 mg Documented By: LIA Labs 03/25/25 06:42 03/21/25 05:56 Labs: Laboratory Results - last 24 hr 03/25/25 06:42 MCV 67.6 L MCH 20.6 L MCHC 30.5 L RDW 21.2 H Plt Count 519 H MPV 8.1 L Immature Gran % (Auto) 1.6 H Neut % (Auto) 75.8 H Lymph % (Auto) 9.7 L [place] % (Auto) 10.0 Eos % (Auto) 2.6 Baso % (Auto) 0.3 Lymph # (Auto) 1.4 [place] # (Auto) 1.5 H Eos # (Auto) 0.4 Baso # (Auto) 0.0 Abs Immat Gran (auto) 0.23 H Absolute Neuts (auto) 11.0 H Absolute Nucleated RBC 0.000 Nucleated RBC % (auto) 0.0 Assessment and Plan (1) Diverticulitis of colon with perforation: Status: Acute (2) Iron deficiency anemia: Status: Acute Plan d7, 64yo F with DM2, obesity, and HTN on Gen Surg service for diverticulitis with colon perforation/abscess, s/p hand-assisted lapraoscopic sigmoid resection and resection of large cavity containing stool with repair of large bladder wall tear, end-colostomy; Medicine following for management of comorbid issues diverticulitis with colon perforation/abscess - 03/21- piperacillin-tazobactam, WBCs improving FANNY - will eventually need iron repletion; H+H stable DM2 - hold MTF, BGs under control HTN - valsartan HLD - atorvastatin mood disorder - escitalopram VTE ppx: enoxaparin dispo: TBD In my clinical judgment, the patient requires continued inpatient hospitalization for the following reasons: postop care, IV ABX Total time managing care of this patient today: 35 minutes. Quality Stroke Does the patient have a stroke diagnosis?: No VTE Prior VTE?: No VTE Risk Level:: Medical - moderate - high VTE Device Contraindication: N/A - Device Ordered VTE Drug Contraindication: N/A - Med Ordered
--- NOTE | 2025-03-25 15:08 | HO.OSTOMY ---
Ostomy Consult: Follow up Teaching 64yr old [place] [facility] see H&P for detailed history and admission.? Consult for new ostomy teaching. ?She had an End Colostomy creation on 03/20/[address] Vaughan. ?Upon entry into patient's room, she is lying in her bed, she is alert and oriented x 3, she currently has no complaints. she recalls my role in her care. She reports pain is well controlled at this time, reports frequent use of IS is able to provide demonstration. She reports having ambulated the lau once today thus far, we discussed a goal of 2-3 more times by tomorrow morning - she is agreeable to this plan. Her pouch was assessed to have soft dark formed stool. She denies emptying at this time - she is however agreeable to ambulating to bathroom to empty with my assistance. Her pouch is noted to be intact and no leaking noted. Dr. Vaughan arrived to bedside and discussed her potential discharge tomorrow - patient reports she will feel ready by tomorrow. She does have VNA set up which will be beneficial to her success since she is not able to see her stoma and until she has a plan at home will need assistance to change the pouch. She understands she will need to learn to do this herself despite not being able to see it - we discussed the use of mirrors to aid in her being able to see it - she reports understanding. She ambulated with out assistance to the bathroom and was able to independently empty her pouch from the standing position into the toilet - she did so without my help and or assistance. She was praised for her work. Plan to see patient tomorrow to change her pouch and assess readiness for convex pouch prior to D/C. She reports understanding and all questions answered prior to leaving.
[2025-03-25 15:46] VITALS: BP 113/57; PULSE 91; RESP 12; TEMP 36.1; O2SAT 95
[2025-03-25 20:00] VITALS: BP 130/61; PULSE 96; RESP 18; TEMP 37.6; O2SAT 95
[2025-03-25] MEDS: 0.9 % Sodium Chloride Flush 3 ML SYRINGE IVFLUSH (20:03)
[2025-03-25] MEDS: oxyCODONE HCl Immed Release 5 MG TABLET PO (20:12)
[2025-03-25 21:12] VITALS: RESP 20
[2025-03-26] MEDS: oxyCODONE HCl Immed Release 5 MG TABLET PO ×4 (02:29→20:13)
[2025-03-26 03:13] VITALS: BP 147/67; PULSE 85; RESP 18; TEMP 36.6; O2SAT 94
--- NOTE | 2025-03-26 04:29 | PC.NURSE ---
Pt alert oriented x4 tolerating diet without N/V. Left lower colostomy intact, stoma flat with formed and liquid brown stool draining with flatus. Mid-abdomen dressing changed as saturated with thin yellow/brown drainage. dry sterile quazes applied with abdominal pad covering. NADINE intact to bulb suction removing brownish yellow secreations. Saleem cath in place as ordered with interdry placed to maintain skin integrity. Skin care provided and patient's bed linens changed per patient request. VSS Patient sleeping most of night with Oxycodone PRN for lower abdomen surgical pain providing good effect.
--- NOTE | 2025-03-26 06:25 | PM.PNGS ---
Subjective Subjective Date of Service: 03/26/25 <Lito - Last Filed: 03/26/25 06:56> 03/26/25 <Silvia Benitez PA-C - Last Filed: 03/26/25 07:42> 03/26/25 <Declan Vaughan MD - Last Filed: 03/26/25 08:14> Interval history: Patient is a 64 year old female POD#6 s/p hand assisted laparoscopic resection of sigmoid, resection of large cavity containing stool with repair of large tear of bladder wall, end colostomy in the left lower quadrant. Overnight she reports nonbloody drainage came out of her incision upon standing, dressing was changed by RN. Otherwise no acute events overnight. Patient feels well this morning. States she was OOB ambulating down the lau and up in her recliner frequently yesterday, tolerated well. Pain has been controlled with PO Oxycodone q4hr PRN, patient has felt IV pain medications (previously morphine and acetaminophen) have not been needed since noon yesterday. Tolerating solid diet well without nausea or vomiting. Abdominal soreness has improved, though mildly present. States she had chronic constipation and hard stools preoperatively at baseline. Denies any other symptoms including shortness of breath or chest pain. <Lito Last Filed: 03/26/25 06:56> Physical Exam Exam: Exam: Comfortable appearing, in no acute distress. <Lito Filed: 03/26/25 06:56> Vital Signs: Vital Signs: Last Vital Signs Temp 97.9 F 03/26/25 03:13 Pulse 85 03/26/25 03:13 Resp 18 03/26/25 03:13 BP 147/67 H 03/26/25 03:13 Pulse Ox 94 03/26/25 03:13 O2 Del Method Room Air 03/26/25 03:13 O2 Flow Rate 92 03/21/25 23:30 BMI result Body Mass Index 41.6 <Lito Last Filed: 03/26/25 06:56> Const: Orientation/consciousness: patient oriented x3 <[facility] Filed: 03/26/25 06:56> Resp: Effort & Inspection: normal respiratory effort and able to speak in complete sentences <[facility] Filed: 03/26/25 06:56> GI: Other: NADINE drain in place in RLQ, continues to drain seropurulent fluid, some leakage of fluid from incision as well. Ostomy bag intact in LLQ with small amount of hard stool this morning. Dressing dry and intact. <[facility] Filed: 03/26/25 06:56> Palpation (GI): Soft to palpation, Tenderness to palpation present (GI) (over incision area only), no guarding and not rigid <[facility] Last Filed: 03/26/25 06:56> : Other: Ortiz catheter in place draining straw colored urine, without gross hematuria. <[facility] Filed: 03/26/25 06:56> Skin: General skin exam: no rashes or lesions noted <[facility] Filed: 03/26/25 06:56> Neuro: General: patient oriented x3 <[facility] Filed: 03/26/25 06:56> Objective Data Active Medications Atorvastatin Calcium (Atorvastatin Calcium 20 Mg Tablet) 20 mg PO BEDTIME [facility] Last Admin: 03/25/25 20:03 Dose: 20 mg Documented By: ELIOT Calcium Carbonate (Calcium Carbonate 750 Mg Tab.Chew) 750 mg PO Q4H PRN PRN Reason: Heartburn Docusate Sodium (Docusate Sodium 100 Mg Capsule) 100 mg PO BID [facility] Last Admin: 03/25/25 20:03 Dose: 100 mg Documented By: ELIOT Escitalopram Oxalate (Escitalopram Oxalate 10 Mg Tablet) 10 mg PO BEDTIME [facility] Last Admin: 03/25/25 20:03 Dose: 10 mg Documented By: ELIOT Acetaminophen (Ofirmev) 1,000 mg in 100 mls @ 400 mls/hr IV Q6H [facility] Last Admin: 03/26/25 02:30 Dose: Not Given Documented By: ELIOT Non-Admin Reason: Patient Refused Piperacillin Sod/Tazobactam (Sod 3.375 gm/ Sodium Chloride) 50 mls @ 100 mls/hr IV Q6H [facility] Last Infusion: 03/26/25 03:01 Dose: Infused Documented By: ELIOT Melatonin (Melatonin 3 Mg Tablet) 6 mg PO BEDTIME PRN PRN Reason: Insomnia Morphine Sulfate (Morphine Sulfate 4 Mg/Ml Cartridge) 4 mg IVPUSH Q4H PRN; Protocol PRN Reason: Pain, Severe (Pain Scale 7-10) Last Admin: 03/25/25 12:58 Dose: 4 mg Documented By: LIA Omeprazole (Omeprazole 20 Mg Capsule.Dr) 20 mg PO DAILY@1630 [facility] Last Admin: 03/25/25 15:31 Dose: 20 mg Documented By: LIA Ondansetron HCl (Ondansetron Hcl 4 Mg/2 Ml Vial) 4 mg IVPUSH Q8H PRN PRN Reason: Nausea and Vomiting Last Admin: 03/22/25 07:58 Dose: 4 mg Documented By: SHANTEL Oxycodone HCl (Oxycodone Hcl Immed Release 5 Mg Tablet) 5 mg PO Q4H PRN PRN Reason: Pain, Moderate(Pain Scale 4-6) Last Admin: 03/26/25 02:29 Dose: 5 mg Documented By: ELIOT Sodium Chloride (0.9 % Sodium Chloride Flush 3 Ml Syringe) 3 ml IVFLUSH QSHIFT [facility] Last Admin: 03/25/25 20:03 Dose: 3 ml Documented By: ELIOT Valsartan (Valsartan 160 Mg Tablet) 160 mg PO DAILY [facility] Last Admin: 03/25/25 08:18 Dose: 160 mg Documented By: LIA <Lito Miller - Last Filed: 03/26/25 06:56> Labs CBC & Chem 7: 03/25/25 06:42 03/21/25 05:56 <Lito Miller - Last Filed: 03/26/25 06:56> Labs: Laboratory Results - last 24 hr 03/25/25 06:42 MCV 67.6 L MCH 20.6 L MCHC 30.5 L RDW 21.2 H Plt Count 519 H MPV 8.1 L Immature Gran % (Auto) 1.6 H Neut % (Auto) 75.8 H Lymph % (Auto) 9.7 L [place] % (Auto) 10.0 Eos % (Auto) 2.6 Baso % (Auto) 0.3 Lymph # (Auto) 1.4 [place] # (Auto) 1.5 H Eos # (Auto) 0.4 Baso # (Auto) 0.0 Abs Immat Gran (auto) 0.23 H Absolute Neuts (auto) 11.0 H Absolute Nucleated RBC 0.000 Nucleated RBC % (auto) 0.0 <Lito Miller Last Filed: 03/26/25 06:56> Procedures Date of Service Date of Service: 03/26/25 <Lito Miller - Last Filed: 03/26/25 06:56> 03/26/25 <Silvia Benitez PA-C - Last Filed: 03/26/25 07:42> 03/26/25 <Declan Vaughan MD - Last Filed: 03/26/25 08:14> Progress Note: A&P Assessment and plan (1) Colostomy in place: Status: Acute <Lito Miller Last Filed: 03/26/25 06:56> Assessment and Plan: Says she feels well Tolerating regular diet well Good stoma function NADINE drain with scanty seropurulent output Good urine output, clear Abdomen is soft and benign No fever She is still anxious about getting discharged with NADINE drain, Ortiz as well as the new colostomy She says she will decide later on today she is ready Looks well overall and doing well clinically Seen and examined independently <Declan Vaughan MD - Last Filed: 03/26/25 08:14> (2) Diverticulitis of colon with perforation: Status: Acute <Lito Miller - Last Filed: 03/26/25 06:56> Assessment and Plan: POD #6 s/p status post hand assisted laparoscopic resection of sigmoid, resection of large cavity containing stool with repair of large tear of bladder wall, end colostomy in the left lower quadrant. Patient seems to be improving clinically. Feeling more comfortable with ostomy care. Tolerating solids well. OOB and ambulates without assistance. Abdomen no longer diffusely tender, sore over incision sites only. Pain controlled with PO oxycodone, continue. Continue Ortiz catheter. Continue NADINE drain, continues to have seropurulent output. Previous leukocytosis on CBC has since downtrended. Continue incentive spirometry 10x/hr. May continue IV Zosyn for at least 1 more day. Consider discharge within next few days with outpatient follow-up. <Holgeradriana - Last Filed: 03/26/25 06:56> POD #6 s/p status post hand assisted laparoscopic resection of sigmoid, resection of large cavity containing stool with repair of large tear of bladder wall, end colostomy in the left lower quadrant. Patient seems to be improving clinically. Feeling more comfortable with ostomy care. Tolerating solids well. OOB and ambulates without assistance. Abdomen no longer diffusely tender, sore over incision sites only. Pain controlled with PO oxycodone, continue. Continue Ortiz catheter. Continue NADINE drain, continues to have seropurulent output. Previous leukocytosis on CBC has since downtrended. Continue incentive spirometry 10x/hr. May continue IV Zosyn for at least 1 more day. Consider discharge within next few days with outpatient follow-up. POD #6 s/p status post hand assisted laparoscopic resection of sigmoid, resection of large cavity containing stool with repair of large tear of bladder wall, end colostomy in the left lower quadrant. Continues to do fairly well post op now comfortable on oral analgesics. Incision without erythema and NADINE cont with seropurulent output. Keep NADINE and ortiz in place. DIscussed possible discharge to home with VNA services later today on course of oral augmentin with leg bag, NADINE drain in place. Will reassess later this afternoon. <Silvia Benitez PA-C - Last Filed: 03/26/25 07:42> Time Spent With Patient Time: Total time managing care of this patient today ____ minutes. <Lito Wadsworth Last Filed: 03/26/25 06:56> Quality Stroke Does the patient have a stroke diagnosis?: No <Lito Wadsworth Last Filed: 03/26/25 06:56> VTE Prior VTE?: No <Lito Wadsworth Last Filed: 03/26/25 06:56> VTE Risk Level:: Medical - moderate - high <Lito Miller - Last Filed: 03/26/25 06:56> VTE Device Contraindication: N/A - Device Ordered <Lito Miller Last Filed: 03/26/25 06:56> VTE Drug Contraindication: N/A - Med Ordered <Lito Miller Last Filed: 03/26/25 06:56>
[2025-03-26 07:32] VITALS: BP 140/65; PULSE 89; RESP 16; TEMP 36.9; O2SAT 93
[2025-03-26 08:14] VITALS: BP 140/65
[2025-03-26] MEDS: 0.9 % Sodium Chloride Flush 3 ML SYRINGE IVFLUSH ×3 (08:14→20:16)
--- NOTE | 2025-03-26 08:53 | MHC.CM.PN ---
Patient not medically cleared for dc. VNA updated. CM will continue to follow.
--- NOTE | 2025-03-26 10:00 | HO.PM.IMPN ---
Subjective Subjective Date of Service: 03/26/25 Interval History: no fever, pain controlled, tolerating diet, ambulating Review of Systems Review of Systems: Yes all other systems are reviewed and are negative Physical Exam Vital Signs: Vital Signs: Last Vital Signs Temp 98.4 F 03/26/25 07:32 Pulse 89 03/26/25 07:32 Resp 16 03/26/25 07:32 BP 140/65 H 03/26/25 08:14 Pulse Ox 93 03/26/25 07:32 O2 Del Method Room Air 03/26/25 07:32 O2 Flow Rate 92 03/21/25 23:30 BMI result Body Mass Index 41.6 Gen: in no acute distress HEENT: sclera anicteric, moist mucus membranes Neck: supple Lungs: clear to auscultation bilaterally Heart: regular rate and rhythm, no murmurs Abd: soft, obese, ostomy with stool, NADINE with seropurulent drainage, Saleem with clear urine, incisions without erythema Ext: no edema Skin: warm/well-perfused Neuro: alert and oriented x3, no focal findings Psych: appropriate affect Objective Data Active Medications Atorvastatin Calcium (Atorvastatin Calcium 20 Mg Tablet) 20 mg PO BEDTIME [facility] Last Admin: 03/25/25 20:03 Dose: 20 mg Documented By: ELIOT Calcium Carbonate (Calcium Carbonate 750 Mg Tab.Chew) 750 mg PO Q4H PRN PRN Reason: Heartburn Docusate Sodium (Docusate Sodium 100 Mg Capsule) 100 mg PO BID [facility] Last Admin: 03/26/25 08:14 Dose: 100 mg Documented By: SAHLYN Escitalopram Oxalate (Escitalopram Oxalate 10 Mg Tablet) 10 mg PO BEDTIME [facility] Last Admin: 03/25/25 20:03 Dose: 10 mg Documented By: ELIOT Acetaminophen (Ofirmev) 1,000 mg in 100 mls @ 400 mls/hr IV Q6H [facility] Last Infusion: 03/26/25 08:56 Dose: Infused Documented By: ASHLYN Piperacillin Sod/Tazobactam (Sod 3.375 gm/ Sodium Chloride) 50 mls @ 100 mls/hr IV Q6H [facility] Last Infusion: 03/26/25 09:28 Dose: Infused Documented By: ASHLYN Melatonin (Melatonin 3 Mg Tablet) 6 mg PO BEDTIME PRN PRN Reason: Insomnia Morphine Sulfate (Morphine Sulfate 4 Mg/Ml Cartridge) 4 mg IVPUSH Q4H PRN; Protocol PRN Reason: Pain, Severe (Pain Scale 7-10) Last Admin: 03/25/25 12:58 Dose: 4 mg Documented By: LIA Omeprazole (Omeprazole 20 Mg Capsule.Dr) 20 mg PO DAILY@1630 [facility] Last Admin: 03/25/25 15:31 Dose: 20 mg Documented By: LIA Ondansetron HCl (Ondansetron Hcl 4 Mg/2 Ml Vial) 4 mg IVPUSH Q8H PRN PRN Reason: Nausea and Vomiting Last Admin: 03/22/25 07:58 Dose: 4 mg Documented By: SHANTEL Oxycodone HCl (Oxycodone Hcl Immed Release 5 Mg Tablet) 5 mg PO Q4H PRN PRN Reason: Pain, Moderate(Pain Scale 4-6) Last Admin: 03/26/25 08:14 Dose: 5 mg Documented By: ASHLYN Sodium Chloride (0.9 % Sodium Chloride Flush 3 Ml Syringe) 3 ml IVFLUSH QSHIFT [facility] Last Admin: 03/26/25 08:14 Dose: 3 ml Documented By: ASHLYN Valsartan (Valsartan 160 Mg Tablet) 160 mg PO DAILY [facility] Last Admin: 03/26/25 08:14 Dose: 160 mg Documented By: ASHLYN Labs 03/25/25 06:42 03/21/25 05:56 Assessment and Plan (1) Diverticulitis of colon with perforation: Status: Acute (2) Iron deficiency anemia: Status: Acute Plan d8, 64yo F with DM2, obesity, and HTN on Gen Surg service for diverticulitis with colon perforation/abscess, s/p hand-assisted lapraoscopic sigmoid resection and resection of large cavity containing stool with repair of large bladder wall tear, end-colostomy; Medicine following for management of comorbid issues diverticulitis with colon perforation/abscess - 03/21- piperacillin-tazobactam, WBCs improving FANNY - will eventually need iron repletion and could consider outpt IV iron infusions as pt has failed PO iron in past due to intolerance; H+H stable DM2 - hold MTF, BGs under control HTN - valsartan HLD - atorvastatin mood disorder - escitalopram VTE ppx: enoxaparin dispo: TBD In my clinical judgment, the patient requires continued inpatient hospitalization for the following reasons: postop care, IV ABX Thank you for this consultation. We are signing off the case at this time. Please communicate with us if any new medical questions arise. Total time managing care of this patient today: 35 minutes. Quality Stroke Does the patient have a stroke diagnosis?: No VTE Prior VTE?: No VTE Risk Level:: Medical - moderate - high VTE Device Contraindication: N/A - Device Ordered VTE Drug Contraindication: N/A - Med Ordered
--- NOTE | 2025-03-26 13:18 | P.CDIM_ITS ---
PROVIDER RESPONSE TEXT: To clarify, the appropriate diagnosis supported by the clinical indicators: Other (explain): The bladder was inseparable from the abscess cavity - unable to remove the sigmoid and abscess without opening up the bladder wall QUERY TEXT: PHYSICIAN'S DOCUMENTATION REQUEST Date of Query: 03/26/2025 08:50 AM EDT Patient Name: Flores Xiao Admit Date: 03/19/2025 Dear Declan Vaughan MD, A review of the medical record indicates additional documentation may be needed. Please review below and update the documentation accordingly. Clinical Indicators: per Operative Note 03/20/25: despite careful dissection, we entered the lumen of the bladder as this appeared to be unavoidable in view of the severe inflammatory process with dense adhesions. We could see the tear in the bladder wall. We therefore asked Dr. Brody of urology to do an intraop consultation The following diagnoses or signs and symptoms were noted in the patient record: Procedure: Hand assisted laparoscopic resection of the sigmoid, resection of a large cavity containing stool, with a fistulous tract to the sigmoid, extensive lysis of adhesions; extensive dissection of the cavity and sigmoid off of the bladder wall, with repair of a large tear on the bladder wall, end colostomy from the remaining sigmoid Based on the above, could you clarify the appropriate diagnosis, if significant, that supports the above abnormalities and additional evaluation, monitoring, and/or treatment rendered: Accidental puncture or laceration of bladder during surgical procedure as cause of complication Other (explain) Clinically unable to determine (explain) Thank you, Aranza Fajardo RN Use of terms such as suspected, likely, concern for, or probable (associated with a specific diagnosis that is being evaluated, monitored, or treated as if it exists) are acceptable and can be coded in the inpatient setting, when documented at the time of discharge. Please use your independent medical judgment in providing your response. THIS QUERY IS PART OF THE PERMANENT MEDICAL RECORD
--- NOTE | 2025-03-26 14:43 | HO.OSTOMY ---
Ostomy Consult: Follow up Teaching 64yr old female admitted to [facility] [place] on 03/19/25 see H&P for detailed history and admission.? Consult for new ostomy teaching. ?She had an End Colostomy creation on 03/20/[address] Vaughan. ?Upon entry into patient's room, she is lying in her bed, she is alert and oriented x 3, she currently has no complaints. She recalls my role in her care. She reports pain is well controlled at this time, reports frequent use of IS is able to provide demonstration. She reports having ambulated the lau once today thus far, we discussed a goal of 2-3 more times by tomorrow morning - she is agreeable to this plan. Her pouch was assessed to have small soft dark formed stool. She denies having to emptying since yesterday. She was noted to have a silent leak at 3 o'clock she was agreeable to a pouch change. Her midline dressing was in the pouch area and was removed and noted for malodor and creamy raymond when palpated and raymond brown drainage along with serous drainage noted on the dressing. She is noted for a few areas of dehiscence and per removed. Providers aware and treating. Mild erythema at wound edges. The pouch was removed and mal odor noted. The stoma remains viable in the central area with red moist tissue the outer edges continue with thick adherent necrotic tissue there was creamy raymond purulent material noted at the 9 o'clock MCJ (Mucocutaneous junction) and notes pin point pain to this area. There is warm red erythema noted circumferentially around the stoma concerning for separation. TT to provider MARIELA De La Fuente with general surgery. Given the red erythema a true convex pouch would likely put pressure to the MCJ instead she was placed in a convex barrier seal along with a two piece flat pouch. (Brava Protective barrier seal - convex # [id number] and Sensura Radames Flex Ostomy pouch # [id number].) Midline with drainage - Foul Odor She does have VNA set up which will be beneficial to her success since she is not able to see her stoma and until she has a plan at home will need assistance to change the pouch. She understands she will need to learn to do this herself despite not being able to see it - we discussed the use of mirrors to aid in her being able to see it - she reports understanding. Plan to see patient tomorrow to assess her pouch and assess readiness for convex pouch prior to D/C. She reports understanding and all questions answered prior to leaving.
[2025-03-26 15:01] VITALS: BP 138/62; PULSE 84; RESP 16; TEMP 36.2; O2SAT 94
--- NOTE | 2025-03-26 15:46 | PM.EVENT ---
Event Note Date of Service: 03/26/25 Event Note: Seen on afternoon rounds She noted to have some redness of the skin around her stoma She says she is still very anxious about leaving today I will keep her overnight and re-evaluate the area of erythema around her stoma She understands the plan and is comfortable with the plan she continues to do well She remains afebrile and has good oral intake Time Spent With Patient Time: Total time managing care of this patient today ____ minutes.
[2025-03-26 19:17] VITALS: BP 130/65; PULSE 89; RESP 18; TEMP 37.2; O2SAT 93
[2025-03-27 03:23] VITALS: BP 155/77; PULSE 85; RESP 18; TEMP 36.6; O2SAT 97
[2025-03-27] MEDS: oxyCODONE HCl Immed Release 5 MG TABLET PO (05:39)
[2025-03-27 08:00] VITALS: BP 140/73; PULSE 90; RESP 18; TEMP 36.7; O2SAT 94
--- NOTE | 2025-03-27 08:02 | P.PNGS_ITS ---
Subjective Subjective Date of Service: 03/27/25 <Silvia Benitez PA-C - Last Filed: 03/27/25 08:06> 03/27/25 <Declan Vaughan MD - Last Filed: 03/27/25 08:08> Interval history: Was extremely nervous and anxious about discharge to home yesterday but feels better about it this morning. She continues to tolerate a solid diet, OOB and ambulating without difficulty, pain controlled on oral analgesics. < Silvia Benitez PA-C - Last Filed: 03/27/25 08:06> Physical Exam 2 Vital Signs: Vital Signs: Last Vital Signs Temp 97.9 F 03/27/25 03:23 Pulse 85 03/27/25 03:23 Resp 18 03/27/25 03:23 BP 155/77 H 03/27/25 03:23 Pulse Ox 97 03/27/25 03:23 O2 Del Method Room Air 03/27/25 03:23 O2 Flow Rate 92 03/21/25 23:30 BMI result Body Mass Index 41.6 <Silvia Benitez PA-C - Last Filed: 03/27/25 08:06> Const: General: comfortable, no acute distress and alert <JADA De La Fuente Last Filed: 03/27/25 08:06> Orientation/consciousness: patient oriented x3 <JADA De La Fuente Last Filed: 03/27/25 08:06> Resp: Effort & Inspection: normal respiratory effort <JADA De La Fuente Last Filed: 03/27/25 08:06> GI: Other: midline incision continues with seropurulent drainage, very pale erythema surrounding per NADINE purulent drainage ostomy with superficial necrosis but pink centrally, stool output <JADA De La Fuente Last Filed: 03/27/25 08:06> Inspection: No distended <JADA De La Fuente Last Filed: 03/27/25 08:06> Palpation (GI): Tenderness to palpation present (GI) (mild incisional) and no guarding <JADA De La Fuente Last Filed: 03/27/25 08:06> Percussion: Yes normal to percussion <Silvia Benitez PA-C - Last Filed: 03/27/25 08:06> Skin: General skin exam: no rashes or lesions noted <JADA De La Fuente Last Filed: 03/27/25 08:06> Neuro: General: patient oriented x3 and moves all extremities <Silvia Benitez PA-C - Last Filed: 03/27/25 08:06> Objective Data Active Medications Atorvastatin Calcium (Atorvastatin Calcium 20 Mg Tablet) 20 mg PO BEDTIME [facility] Last Admin: 03/26/25 20:13 Dose: 20 mg Documented By: FABIOLA Calcium Carbonate (Calcium Carbonate 750 Mg Tab.Chew) 750 mg PO Q4H PRN PRN Reason: Heartburn Docusate Sodium (Docusate Sodium 100 Mg Capsule) 100 mg PO BID [facility] Last Admin: 03/26/25 20:13 Dose: 100 mg Documented By: FABIOLA Escitalopram Oxalate (Escitalopram Oxalate 10 Mg Tablet) 10 mg PO BEDTIME [facility] Last Admin: 03/26/25 20:13 Dose: 10 mg Documented By: FABIOLA Acetaminophen (Ofirmev) 1,000 mg in 100 mls @ 400 mls/hr IV Q6H [facility] Last Infusion: 03/27/25 01:56 Dose: Infused Documented By: FABIOLA Piperacillin Sod/Tazobactam (Sod 3.375 gm/ Sodium Chloride) 50 mls @ 100 mls/hr IV Q6H [facility] Last Infusion: 03/27/25 02:26 Dose: Infused Documented By: FABIOLA Melatonin (Melatonin 3 Mg Tablet) 6 mg PO BEDTIME PRN PRN Reason: Insomnia Morphine Sulfate (Morphine Sulfate 4 Mg/Ml Cartridge) 4 mg IVPUSH Q4H PRN; Protocol PRN Reason: Pain, Severe (Pain Scale 7-10) Last Admin: 03/25/25 12:58 Dose: 4 mg Documented By: LIA Omeprazole (Omeprazole 20 Mg Capsule.) 20 mg PO DAILY@1630 SHAE Last Admin: 03/26/25 15:58 Dose: 20 mg Documented By: ASHLYN Ondansetron HCl (Ondansetron Hcl 4 Mg/2 Ml Vial) 4 mg IVPUSH Q8H PRN PRN Reason: Nausea and Vomiting Last Admin: 03/22/25 07:58 Dose: 4 mg Documented By: DUANEJ Oxycodone HCl (Oxycodone Hcl Immed Release 5 Mg Tablet) 5 mg PO Q4H PRN PRN Reason: Pain, Moderate(Pain Scale 4-6) Last Admin: 03/27/25 05:39 Dose: 5 mg Documented By: FABIOLA Sodium Chloride (0.9 % Sodium Chloride Flush 3 Ml Syringe) 3 ml IVFLUSH QSHIFT [facility] Last Admin: 03/26/25 20:16 Dose: 3 ml Documented By: FABIOLA Valsartan (Valsartan 160 Mg Tablet) 160 mg PO DAILY [facility] Last Admin: 03/26/25 08:14 Dose: 160 mg Documented By: ASHLYN <Silvia Benitez PA-C - Last Filed: 03/27/25 08:06> Labs CBC & Chem 7: 03/25/25 06:42 03/21/25 05:56 <Silvia Benitez PA-C - Last Filed: 03/27/25 08:06> Procedures Date of Service Date of Service: 03/27/25 <Silvia Benitez PA-C - Last Filed: 03/27/25 08:06> 03/27/25 <Declan Vaughan MD - Last Filed: 03/27/25 08:08> Progress Note: A&P Assessment and plan (1) Colostomy in place: Status: Acute <Silvia Benitez PA-C - Last Filed: 03/27/25 08:06> Assessment and Plan: Feels well this morning Tolerating diet well Good stoma function No fever NADINE drain with same seropurulent output, scanty Says she feels ready to be discharged later today We will send home with oral antibiotics Re-evaluate around lunchtime Seen and examined independently <Declan Vaughan MD - Last Filed: 03/27/25 08:08> (2) Diverticulitis of colon with perforation: Status: Acute <Silvia Benitez PA-C - Last Filed: 03/27/25 08:06> Assessment and Plan: POD #7 s/p status post hand assisted laparoscopic resection of sigmoid, resection of large cavity containing stool with repair of large tear of bladder wall, end colostomy in the left lower quadrant. Continues to do fairly well post op now comfortable on oral analgesics. Incision and NADINE continue with seropurulent output. ostomy has superficial necrosis but remains pink centrally with hard stool output. Keep NADINE and ortiz in place. She overall is well appearing and feels ready for discharge today with VNA services later today on course of oral augmentin with leg bag, NADINE drain in place. Will reassess later this afternoon. <Silvia Benitez PA-C - Last Filed: 03/27/25 08:06> Time Spent With Patient Time: Total time managing care of this patient today ____ minutes. <JADA De La Fuente Last Filed: 03/27/25 08:06> Quality Stroke Does the patient have a stroke diagnosis?: No <JADA De La Fuente Last Filed: 03/27/25 08:06> VTE Prior VTE?: No <JADA De La Fuente Last Filed: 03/27/25 08:06> VTE Risk Level:: Medical - moderate - high <JADA De La Fuente Last Filed: 03/27/25 08:06> VTE Device Contraindication: N/A - Device Ordered <JADA De La Fuente Last Filed: 03/27/25 08:06> VTE Drug Contraindication: N/A - Med Ordered <JADA De La Fuente Last Filed: 03/27/25 08:06>
[2025-03-27 08:09] VITALS: BP 140/73
[2025-03-27] MEDS: 0.9 % Sodium Chloride Flush 3 ML SYRINGE IVFLUSH (08:15)
--- NOTE | 2025-03-27 09:20 | P.F2F_ITS ---
Service Date Service Date: 03/27/25 Encounter Date of encounter: 03/27/25 Reasons for Services Signs and symptoms assessed: abdominal pain, NADINE output, incision appearance, ostomy output and appearance Reason for nursing home: wound care and postoperative assessment and/or care Homebound: Leaving the home is medically contraindicated at this time without the asist of a device and/or another person due th the listed conditions above and below. Reason homebound: weakness related to hospital stay and unable to drive Homebound supporting statement: Ms. Xiao is s/p sigmoid resection with end colostomy, repair of bladder lacteration for perforated diverticulitis with large abscess. She will need VNA services for ostomy, NADINE drain and ortiz care. Certification: Based on the above findings, I certify that this patient is confined to the home and needs intermittent nursing home care, physical therapy and/or speech therapy, or continues to need occupational therapy. The patient is under my care, and I have initiated the establishment of the plan of care. The patient will be followed by a physician who will periodically review the plan of care. Time Spent With Patient Time: Total time managing care of this patient today ____ minutes.
--- NOTE | 2025-03-27 11:26 | MHC.CM.PN ---
Addendum entered by Glenis Patel RN 03/27/25 12:41: Patient cleared for dc home w/ [facility] for [facility]. Family transport. Original Note: Potential dc later today. VNA updated. CM met with patient who expresses confidence in managing ostomy, NADINE drain and new ortiz at home. RN & wound nurse providing ongoing education. Will continue to follow.
[2025-03-27 12:59] VITALS: BP 142/73; PULSE 93; RESP 18; TEMP 37.1; O2SAT 95
--- NOTE | 2025-03-27 13:46 | HO.OSTOMY ---
Ostomy Consult: Follow up Teaching 64yr old female admitted to [facility] on 03/19/25 see H&P for detailed history and admission.? Consult for new ostomy teaching. ?She had an End Colostomy creation on 03/20/[address] Vaughan. ?Upon entry into patient's room, she is lying in her bed, she is alert and oriented x 3, she currently has no complaints. She recalls my role in her care. She reports pain is well controlled at this time, reports frequent use of IS is able to provide demonstration. She reports having ambulated the lau today. Her pouch was assessed to have pancake leak noted. agreeable to pouch change. Give her pouch was just changed yesterday this pouch is not a fit. We discussed and she was agreeable to trying a convex pouch with a belt. We used a soft light convex pouch sensura Radames # [id number] with brava barrier strip paste. supplies given for home use. When pouch was removed leaking noted to be located primarily at the 3 o'clock silvia - we discussed this with the patient and she was educated that is the deepest point of her crease - she should fill the area in an effort to make the stoma have a flat pouchable area - she reported understanding. She was able to walk me through a pouch change step by step but was not able to perform herself due to not being able to see the stoma. The pouch was cut 30x40 oval. She reports she has emptied her pouch independently today without incident. The erythema around the stoma has lightened and is not warm at this time. she has significant less pain as well. The stoma remains viable in the central area with red moist tissue the outer edges continue with thick adherent necrotic tissue no purulent material noted at the 9 o'clock MCJ (Mucocutaneous junction). The midline dressing was in the pouch area and was removed and noted for less malodor and remains with creamy raymond drainage. She is noted for a few areas of dehiscence and per removed. Providers aware and treating. Mild erythema at wound edges. Midline with drainage - 03/27/25 She does have VNA set up which will be beneficial to her success since she is not able to see her stoma and until she has a plan at home will need assistance to change the pouch. She understands she will need to learn to do this herself despite not being able to see it - we discussed the use of mirrors to aid in her being able to see it - she reports understanding. She reports understanding and all questions answered prior to leaving.
--- NOTE | 2025-03-27 14:22 | PM.DS ---
DS: Providers Provider Date of Service: 03/27/25 Date of admission: 03/19/25 17:06 Date of discharge: 03/27/25 Primary care physician: Chastity Yuan NP Attending physician on admission: Declan Vaughan Consults: 03/19/25 17:10 Consult to Hospitalist Routine Comment: Consulting Provider: [facility] Hospitalists Reason For Exam: HTN, DM, anemia 03/20/25 08:22 Consult to Ostomy Care Routine Attending physician on discharge: Declan Vaughan DS: Diagnosis Discharge Diagnosis (1) Colostomy in place: Status: Acute (2) Diverticulitis of colon with perforation: Status: Acute DS: Summary Hospital Course Hospital Course: HPI AT ADMISSION: Flores Xiao is a 64 year old female known diverticular disease, chronic anemia, borderline diabetes, here in the ER because of lower abdominal pain. She says that he has had this for several months but seems to have been worse the past 2 weeks. She actually had a colonoscopy 2 weeks ago in [facility] and she was noted to have poor bowel prep, severe diverticulosis and a narrowing in the sigmoid as well. In view of her persistent pain on the lower abdomen, she was sent to the ER by her primary care physician today. She denies admitting although she says she may have been a little nauseous earlier today. She has chronic constipation. She did have good bowel movements yesterday. She denies any fever or chills. She describes some urgency of urination and says that she often feels pressure in the pelvis when she urinates. She otherwise says that she remains active with good oral intake even today. She says she has been ambulating well at home. CAT scan was performed and reviewed and is consistent with acute diverticulitis with a contained perforation which appears to be more than just an abscess, also with note of significant inflammatory changes in the segment of the sigmoid. HOSPITAL COURSE: She as admitted to the surgical service for further treatment of the diverticulitis with perforation and abscess. In view of the large size of this contained perforation, it was discussed it is unlikely to resolve and explained to her that she will benefit from resection with a colostomy for this markedly diseased sigmoid. The plan was to reevaluate her the following day with consult to IR to see if there is any benefit for IR drainage but it was discussed she would likely need a resection. Her hemoglobin was low and she does state that she has chronic anemia and she was transfused 1U PRBC. She was started on IVF, IV zosyn, kept NPO. Hospitalist service was consulted in view of her diabetes and hypertension. The scan was again reviewed and the abscess cavity appeared contain stool and it was therefore recommended to proceed with resection. She agreed to proceed. On 03/20/25, Hand assisted laparoscopic resection of the sigmoid, resection of a large cavity containing stool, with a fistulous tract to the sigmoid, extensive lysis of adhesions; extensive dissection of the cavity and sigmoid off of the bladder wall, with repair of a large tear on the bladder wall, end colostomy from the remaining sigmoid. NADINE drain was placed intraoperatively She was found to have sigmoid diverticulitis, with large contained perforation; severe phlegmonous process with a large cavity with thick rind containing stool was very adherent to the sigmoid with a large fistulous tract; bladder was markedly adherent to this large cavity. Dr. Brody of Urology was consulted intraoperatively in view of the adherent bladder with bladder tear. She tolerated the procedure fairly well. Ortiz catheter was kept post operatively in view of the operative findings and events. She had an uncomplicated but lengthy hospital stay necessitating IV antibiotics and pain control. Her BP was soft and she was borderline tachycardic post operatively and she was tranfused another unit of PRBC. Her ostomy began to function with stool output on day 1. Her diet was slowly advanced from clear liquids to solids. Her activity was gradually increased. Ostomy education was performed. She did have an increase in her leukocytosis however this began to downtrend significantly on POD #4 and continued to improve. She was weaned from IV analgesics to oral. She did develop an incisional fluid collection with seropurulent drainage and a few of her per were removed and wound was probed. On the day of discharge, she felt overall improved and was tolerating a solid diet without nausea or vomiting, had good pain control on oral analgesics and was ambulating without difficulty. She was hemodynamically stable. Her NADINE drain had seropurulent output and was kept in place. Her colostomy did have superficial necrosis but was pink and viable appearing centrally and functioning well. There is a ring of erythema surrounding which is likely due to surrounding fluid collection which is draining around the MCJ. Her incision continued with drainage without erythema. Her ortiz catheter was kept in place to leg bag and was draining straw colored urine. She felt ready for discharge and was discharged to home on 03/27/25 in stable condition with VNA services on a course of oral Augmentin. She is to follow up in the general surgery office in 1 week. She is to follow up with urology for ortiz catheter management. She is to follow up with her PCP for medical management and possible IV iron therapy for her anemia. She was continued on colace and miralax for her hard stools via ostomy. Ortiz catheter care: Flush with 30-60cc sterile water PRN for increased sediment or blockage. If it becomes dislodged may replace with same size ortiz PRN and routine every 4 weeks. Status at Discharge Functional status at discharge: independent ambulation Overall status at discharge: patient is progressing back to baseline Time Attestation Discharge Coordination Time (in mins): 50 Quality: Safe Use of Opioids Does Pt have an Active Cancer Diagnosis on the Problem List?: No Quality: Stroke Does the patient have a stroke diagnosis?: No Physical Exam Vital Signs: Vital Signs: Last Vital Signs Temp 98.1 F 03/27/25 08:00 Pulse 90 03/27/25 08:00 Resp 18 03/27/25 08:00 BP 140/73 H 03/27/25 08:09 Pulse Ox 94 03/27/25 08:00 O2 Del Method Room Air 03/27/25 08:00 O2 Flow Rate 92 03/21/25 23:30 BMI result Body Mass Index 41.6 Const: General: comfortable, no acute distress and alert Orientation/consciousness: patient oriented x3 Resp: Effort & Inspection: normal respiratory effort GI: Other: midline incisions with per intact ; infraumbilical incision with seropurulent drainage, no erythema NADINE drain with seropurulent drainage ostomy pink centrally, hard stools, small ring of erythema surrounding under appliance Inspection: No distended Palpation (GI): Soft to palpation, Tenderness to palpation present (GI) (mild incisional) and no guarding Skin: Other: warm and dry Neuro: General: patient oriented x3 and moves all extremities DS: Data Data Completed and Pending Pending studies at discharge: Pending at discharge 03/20/25 14:25 Surgical [PTH] Routine Discharge Plan Discharge Anticipated Discharge Date/Time: 03/26/25 10:28 Patient Disposition: Home Health Service Discharge Diagnosis: perforated diverticulitis, s/p sigmoid resection, end colostomy, repair of bladder laceration [facility]errals: [facility] [Other] - 3-5 Days Referral Note: The VNA will call you to schedule home nursing visits Dom Brody MD [Physician, Urology] - 3 Weeks Chastity Yuan NP [Primary Care Provider, Family Practice] - 1 Week Declan Vaughan MD [Physician, General Surgery] - 1 Week Discharge Medications: New docusate sodium [Colace] 100 mg capsule 100 mg PO BID Qty: 60 0RF oxycodone 5 mg tablet 5 mg PO Q4H PRN (Reason: pain (scale score 7-10)) Qty: 30 0RF Rx Instructions: Partial Fill upon patient request. amoxicillin-pot clavulanate 875-125 mg tablet 1 tab PO BID Qty: 14 0RF acetaminophen 500 mg tablet 1,000 mg PO Q6-8H PRN (Reason: pain) Qty: 30 1RF polyethylene glycol 3350 [Miralax] 17 gram/dose powder 17 g PO DAILY Qty: 119 0RF Continued citalopram 20 mg tablet 20 mg PO BEDTIME pantoprazole 40 mg tablet,delayed release (DR/EC) 40 mg PO DAILY@1630 metformin 500 mg tablet extended release 24 hr 500 mg PO BEDTIME olmesartan 40 mg tablet 40 mg PO BEDTIME rosuvastatin 10 mg tablet 10 mg PO BEDTIME sennosides [senna] 8.6 mg Tablet 17.6 mg PO BEDTIME PRN (Reason: Constipation) acetaminophen 500 mg Tablet 1,000 mg PO BID PRN (Reason: Pain) Discharge Orders: Discharge Order (Routine); Ordered 03/27/25 Ordered By: Silvia Benitez Diet: Diabetic diet Activity on Discharge: No heavy lifting Stand Alone Forms: Patient Portal Discharge page Print Language: Indonesian Activity Restrictions/Additional Instructions: If the incision area is tender, you may apply an ice pack for short intervals (No more than 20 minutes on, followed by at least 20 minutes off). Do not apply heat. Do not use creams, lotions, or topical antibiotics. These can cause infection or allergic reaction. Take your antibiotics as prescribed. Ok to shower. You have per closing your incision and these will be removed approximately 10-14 days after surgery. Keep your incision covered with dry sterile dressing while it continues to drain. It may continue to drain until the incision closes. NO HEAVY LIFTING (>10lbs) or strenuous activity. Follow up in office in 1 week. ([phone]) Call Your Doctor If: -Your temperature exceeds 101.5? F -You experience excessive pain or swelling -You have an unexpected reaction to medication -You have excessive bleeding -You experience continued vomiting/nausea -Your incision begins to separate -Your incision shows signs of infection such as increased redness, swelling, excessive pain, or heat NADINE drain care: empty drain BID and as needed. Record output. Bring record to follow up appointment. Ostomy recommendations: 1. Empty pouch before pouch change 2. Remove pouch using push/pull technique from top to bottom 3. Cleanse stoma and skin with tap water only - no soap or baby wipes 4. Pat dry 5. Measure stoma and cut new pouch no more than 1/8 inch larger than stoma and no smaller than stoma 6. If instructed by your ostomy nurse stretch barrier seal to the size of the stoma and press onto skin around stoma (up to the edge of the stoma but not onto the stoma) 7. Press the new pouch into place and hold for several minutes (close pouch tail) 8. Empty pouch when 1/3 to 1/2 full 9. Change pouch twice weekly on a schedule (for example, every Monday and ) and as needed for any leaking (feels like intense itch or burn at edge of stoma)? Ortiz catheter care: Wash your hands before and after touching the catheter or bag. Clean the skin around where the catheter enters your body once a day with soap and water. Pat dry. Keep the bag below your bladder (waist level) at all times. Empty the bag when it?s about 2/3 full or every 6?8 hours: ? Open the spout over the toilet ? Don?t touch the tip ? Close it tightly after draining Make sure the tube isn?t kinked or pulled. Secure it with a leg strap or tape. Call your doctor if you have: ? Fever or chills ? Pain in your lower belly ? Blood, pus, or foul-smelling urine ? No urine draining ? Leaking around the catheter Care Plan Goals: Return to baseline health and resume normal activities following recovery period. Eventual NADINE drain and ortiz catheter removal. Health Concerns: perforated sigmoid diverticulitis with large abscess Plan of Treatment: s/p sigmoid resection, end colostomy IV transitioned to oral antibiotics VNA services for colostomy and NADINE drain care, wound care Follow up in the office with Dr. Vaughan in 1 week for wound check, staple removal and NADINE drain removal Follow up with Dr. Brody in the office for eventual ortiz catheter removal Assessment: Improved Patient Instructions: Colostomy Care (DC), Ortiz Catheter Placement and Care (DC), Brooks-Hagen Drain Care (DC) Discharge Date/Time: 03/27/25 13:52
== END 2025-03-27 13:52 | disposition home health service (06) | DRG 330 ==
LOC: HO.ED 17:13 → HO.EDOVER 17:13 → HO.S3 03-20 08:54
PROVIDERS: Physician Assistant; Physician Assistant Medical; Physician Assistant Surgical; Surgery; Admitting Provider Surgery; Emergency Provider Emergency Medicine; PCP Nurse Practitioner Family; Visit Provider Surgery
PROC: 0DTE0ZZ Resection of Large Intestine, Open Approach (ICD-10-PCS; principal; 2025-03-20 10:30)
DX: K57.20 Diverticulitis of large intestine with perforation and abscess without bleeding (principal); N32.1 Vesicointestinal fistula; Z68.41 Body mass index [BMI] 40.0-44.9, adult; K21.9 Gastro-esophageal reflux disease without esophagitis; E78.5 Hyperlipidemia, unspecified; I10 Essential (primary) hypertension; G89.18 Other acute postprocedural pain; E66.812 Obesity, class 2; Z71.3 Dietary counseling and surveillance; K59.09 Other constipation; D50.9 Iron deficiency anemia, unspecified; R73.03 Prediabetes; Z87.891 Personal history of nicotine dependence; Z79.899 Other long term (current) drug therapy
CPT/HCPCS: 36415; 71045; 74177; 80048; 80053; 81001; 82947; 85007; 85014; 85018; 85025; 85027; 86850; 86900; 86901; 86923; 88307; 88341; 88342; 93005; 99285; J0131; J0618; J0665; J1100; J1171; J1630; J2003; J2250; J2270; J2371; J2405; J2543; J2598; J2704; J2795; J3010; J7120; P9016; Q9967; Q9968

== ENCOUNTER → 2025-03-19 14:03 | Outpatient (BNV) | payer OTHER, SELFPAY | PROVIDERS: Emergency Provider Emergency Medicine; PCP Nurse Practitioner Family; Visit Provider Radiology Body Imaging | DX: R16.0 Hepatomegaly, not elsewhere classified (principal); K57.33 Diverticulitis of large intestine without perforation or abscess with bleeding; Z01.818 Encounter for other preprocedural examination | CPT/HCPCS: 71045; 74177 ==

== ENCOUNTER → 2025-03-19 16:31 | Outpatient (BNV) | payer OTHER, SELFPAY | PROVIDERS: Admitting Provider Surgery; Emergency Provider Emergency Medicine; PCP Nurse Practitioner Family; Visit Provider Internal Medicine Cardiovascular Disease | DX: Z13.6 Encounter for screening for cardiovascular disorders (principal) | CPT/HCPCS: 93010 ==

== ENCOUNTER → 2025-03-19 17:06 | Outpatient (BNV) | payer OTHER, SELFPAY | PROVIDERS: Admitting Provider Surgery; Emergency Provider Emergency Medicine; PCP Nurse Practitioner Family; Visit Provider Physician Assistant Surgical | DX: Z93.3 Colostomy status (principal) | CPT/HCPCS: 99024; 99499 ==

== ENCOUNTER → 2025-03-19 17:06 | Outpatient (BNV) | payer OTHER, SELFPAY | PROVIDERS: Admitting Provider Surgery; Emergency Provider Emergency Medicine; PCP Nurse Practitioner Family; Visit Provider Urology | DX: S37.23XA Laceration of bladder, initial encounter (principal); N99.72 Accidental puncture and laceration of a genitourinary system organ or structure during other procedure | CPT/HCPCS: 51860 ==

== ENCOUNTER → 2025-03-19 17:06 | Outpatient (BNV) | payer OTHER, SELFPAY | PROVIDERS: Admitting Provider Surgery; Emergency Provider Emergency Medicine; PCP Nurse Practitioner Family; Visit Provider Physician Assistant | DX: K57.20 Diverticulitis of large intestine with perforation and abscess without bleeding (principal); S37.23XA Laceration of bladder, initial encounter; D50.9 Iron deficiency anemia, unspecified | CPT/HCPCS: 99223; 99232 ==

== ENCOUNTER 2025-04-01 13:13 | Outpatient (AMB) | payer OTHER, SELFPAY ==
--- OUTSIDE RECORDS SUMMARY | 2025-04-01 16:12 | XMS_ITS | Clinical Summary ---
Author Organization [facility] Address [address] [facility] [address] [place] [address] Phone Care Team Providers Care County Library Director Name Role Phone Pcp, Unknown Primary Care Provider Unavailabl e Encounters Date Type Department Care Team Description 03/05/2025 8:16 AM EDT - 03/05/2025 11:59 PM EDT Hospital Encounter [facility] [address] [place] [address] Juan Ledesma MD Discharge Disposition: Home or [...] Orientation Not on file Plan of Treatment Upcoming Encounters Date Type Department Care Team (Late st Contact Info) Description 07/08/2025 9:45 AM EST Office Visit [facility] [address] [place] [address] Unknown, Unknown, Juan James MD [address] [place] [phone] [email or web address] Health Maintenance Due Date Last Done Comments Adult Td,Tdap Booster 1960 LIPID PANEL 1962 DEPRESSION SCREENING 1974 SMOKING Hx and SMOKELESS TOB ACCO SCREENING 09/14/1975 HEPATITIS C SCREENING 1980 HIV ONE-TIME SCREENING (18-6 5 YEARS) 1980 PAP SMEAR 09/14/1983 MAMMOGRAM 2002 COLOGUARD 09/14/2007 COLONOSCOPY 09/14/2007 FOBT 09/14/2007 SIGMOIDOSCOPY 09/14/2007 VIRTUAL COLONOSCOPY 09/14/2007 PNEUMOCOCCAL VACCINES (50+ y ears) (1 of 1 - PCV) 2012 ZOSTER VACCINES (1 of 2) 2012 INFLUENZA VACCINE (#1) 2025 COVID-19 VACCINE (1 - 2024-2 6 season) 2025 COLORECTAL CANCER SCREENING 09/23/2025 FIT TEST 09/23/2025 09/23/2024 RSV VACCINE (1 - 1-dose 75+ series) 2037 HEPATITIS A VACCINES Aged Out No long er eligible based on patient's age to complete this topic HIB VACCINES Aged Out No longer eligi ble based on patient's age to complete this topic MENINGOCOCCAL VACCINES (ACWY) Aged Out No longer eligible based on patient's age to complete this topic MENINGOCOCCAL VACCINES (B) Aged Out N o longer eligible based on patient's age to complete this topic Medical Devices Not on file Procedures Procedure Name Priority Date/Time Associated Diagnosis Comments ANATOMIC PATHOLOGY Routine 03/05/2025 12 :00 AM EDT HC BLOOD OCCULT FECAL HGB DETER IA QUAL FECES 1-3 Routine 09/23/2024 5:40 PM EDT Iron deficiency anemia, unspecified iron deficiency anemia type from Last 3 Months or Most Recently Relevant to Health Maintenance Results * Anatomic Pathology (03/05/2025 12:00 AM EDT) 03/05/2025 03/06/2025 10: 37 AM EDT Narrative SEE NARRATIVE - 03/07/2025 1:55 PM EDT [address] [address] Learning Technologies Specialist: Waqas Ta MD Surgical Pathology Report FINAL [...] reflux disease, last colonoscopy previous aborted/incomplete at [facility] May 2022 SPECIMENS SUBMITTED: A: [...] cassette labeled B1. Grossed by: MARVA Williamson, PA([facility]) [id number] 03/06/2025 Grossing Staff: [id number] Patient Name: FLORES VELEZ : 1960 (Age: 64) Sex: F Institution: [facility] Location: [facility] Date of Operation: 03/05/2025 Date of Reported: 03/07/2025 13:55 Results To: Juan Ledesma MD [facility] Chastity Yuan NP us Juan Ledesma MD PATHOLOGY ORDERABLES Final Res ult Performing Organization Address City/State/[facility] Co de Phone Number SEE NARRATIVE * Fecal immunochemical test x1 (FIT) (09/23/2024 5:40 PM EDT) Immuno Fecal Occult Negative Negative [facility] Stool (Stool) 09/23/2024 5:4 0 PM EDT 09/23/2024 5:42 PM EDT us Chastity Yuan NP BODY FLUIDS AND STOOLS ORD ERABLES Final Result [facility] [address] [place] [address] from Last 3 Months or Most Recently Relevant to Health Maintenance Insurance UNITED UMR UNITED R [address] [place], [place] [id number] R R Care Teams County Library Director Relationship Specialty Start Date End Date Pcp, Unknown PCP - General 09/23/24 Additional Source Comments The information contained in this document represents components of the legal health record. It is not the complete legal health record.[facility]
--- NOTE | 2025-04-03 15:49 | AM.OFFVISNUR ---
Intake Visit Reasons: ostomy change Allergies No Known Allergies (No Known Allergies*) Allergy (Verified 04/03/25 13:44) Nursing Note Pt reports to the office for ostomy assistance. Pts sister was with her. Supply list and [employer] account was reviewed. Old appliance was removed, area cleansed with wet gauze, ostomy pink and well perfused, nawaf-stomal skin intact with exception of small 4mm round area of skin irritation. Ostomy powder was applied to this. All steps demonstrated and explained to pt and sister. Advised that supplies will arrive in a few days and supplied with a few bags to get her through. Pt will also have VNA starting in the next few days. Changed dressing on mid abdominal wound. No s/s of infection, no redness, no swelling, small amount of serous drainage from inferior 1 cm of incision. New ABD pad was applied and taped into place. Pt knows to call if she has any questions or problems and will return to see MD in 2 days. Coding Level of Care Code Established Pt Est Pt Level 1 (58665) Patient Type Established History Problem Focused Exam Problem Focused Medical Decision Making Straight Forward Time Spent (min) 30 Comment ostomy care, teaching, wound care.
== END 2025-04-01 14:36 | disposition home or self-care (01) ==
LOC: HO.HGS 13:13
PROVIDERS: PCP Nurse Practitioner Family; Visit Provider Surgery
DX: Z48.89 Encounter for other specified surgical aftercare (principal)
CPT/HCPCS: 99024

== ENCOUNTER 2025-04-03 13:34 | Outpatient (AMB) | payer OTHER, SELFPAY ==
--- NOTE | 2025-04-03 13:36 | MHC.OFFVIS ---
Vital Signs 04/03/25 13:43 Height 5 ft 2 in Weight 203 lb 6 oz BMI 37.2 BP 124/61 Blood Pressure Location Rt brachial Position Sitting Pulse 90 Intake Visit Reasons: S/P resection of the sigmoid Intake Note: This patient presents for post-op assessment status post Hand assisted laparoscopic resection of the sigmoid, resection of a large cavity containing stool, with a fistulous tract to the sigmoid, extensive lysis of adhesions; extensive dissection of the cavity and sigmoid off of the bladder wall, with repair of a large tear on the bladder wall, end colostomy from the remaining sigmoid. Pt c/o; no complaints Electronic Publications Specialist Required: No Accompanied by: Mother Allergies No Known Allergies (No Known Allergies*) Allergy (Verified 04/03/25 13:44) HPI HPI S/P resection of the sigmoid: Details: [age] year old female here for follow-up. She had undergone hand assisted laparoscopic sigmoid resection, end colostomy, with removal of part of the bladder wall, excision of a large, thick abscess cavity in the pelvis likely secondary to perforated diverticulitis last 03/20/2025. She was discharged on postop day 7. She still has a Saleem catheter in place. This appears clear and she has good urine output. Her stoma has been functioning well. She has good oral intake although she admits says she does not have her appetite back yet. She still has a NADINE drain to the pelvis. [facility] Medical History Anxiety HTN (hypertension) Class 2 obesity Depression HLD (hyperlipidemia) GERD (gastroesophageal reflux disease) Borderline diabetes Iron deficiency anemia Diverticulitis of colon with perforation Surgical History Hx of surgical procedure (~03/20/25) Status post surgical removal of malignant neoplasm of skin Social History Household Members: Family Housing: House Do you presently have visiting nurse or other home services: No Patient Tobacco Use Status: Former Tobacco user service: No Review of Systems Const Denies chills and Denies fever(s) Card Denies chest pain at rest Resp Denies cough GI Details: Good colostomy function Details: Has Saleem catheter, with clear urine Physical Exam Const General: comfortable and no acute distress Resp Effort & Inspection: normal respiratory effort Cardio Rate: regular rate GI Other: Incisions are well healing, colostomy functioning well, NADINE drain in place with seropurulent output, thinner inconsistent see compared to before, some thin purulent drainage from the midline incision noted Palpation (GI): Soft to palpation, not firm and no guarding Assessment & Plan Assessment & Plan (1) Diverticulitis of colon with perforation: Code(s): K57.20 - Diverticulitis of large intestine with perforation and abscess without bleeding Category: Medical Plan: Status post hand assisted laparoscopic sigmoid resection, level of abscess wall, removal of part of the bladder wall with closure, for perforated diverticulitis with a large thick abscess with stools. I removed some of her skin per. She has a some small pockets of abscess collection in the subcutaneous area which I probed with Q-tips. She still has about 150-200 cc of output from the NADINE drain daily so we will keep this in in the meantime. The consistency is much thinner now although still looks seropurulent. Her urine is clear. She is to follow up with Dr. Brody and she will need a cystogram prior to removal of this Saleem catheter. Coding Level of Care Code Global (06572) Diagnoses Diverticulitis of colon with perforation K57.20
--- OUTSIDE RECORDS SUMMARY | 2025-04-03 13:37 | XMS_ITS | Clinical Summary ---
Author Organization [facility] Address [address] [facility] [address] [place] [address] Phone Care Team Providers Care Gun Striper Name Role Phone Pcp, Unknown Primary Care Provider Unavailabl e Encounters Date Type Department Care Team Description 03/05/2025 8:16 AM EDT - 03/05/2025 11:59 PM EDT Hospital Encounter [facility] [address] [place] [address] Juan Ledesma MD Discharge Disposition: Home or [...] Description 07/08/2025 9:45 AM EST Office Visit [facility] 10 [place] [address] Unknown, Unknown, Juan James MD [address] [place] [phone] [email or web address] Health Maintenance Due Date Last Done Comments [...] SEE NARRATIVE - 03/07/2025 1:55 PM EDT [address] [address] Intensive Care Ambulance Paramedic: Waqas Ta MD Surgical Pathology Report FINAL [...] reflux disease, last colonoscopy previous aborted/incomplete at [facility] May 2022 SPECIMENS SUBMITTED: A: DUODENUM, [...] cassette labeled B1. Grossed by: MARVA Williamson, PA([facility]) [id number] 03/06/2025 Grossing Staff: [id number] Patient Name: FLORES VELEZ : 1960 (Age: 64) Sex: F Institution: [facility] Location: [facility] Date of Operation: 03/05/2025 Date of Reported: 03/07/2025 13:55 Results To: Juan Ledesma MD [facility] Chastity Yuan NP us Juan Ledesma MD PATHOLOGY ORDERABLES Final Res ult Performing Organization Address City/State/[facility] Co de Phone Number SEE NARRATIVE * Fecal immunochemical test x1 (FIT) (09/23/2024 5:40 PM EDT) Immuno Fecal Occult Negative Negative [facility] Stool (Stool) 09/23/2024 5:4 0 PM EDT 09/23/2024 5:42 PM EDT us Chastity Yuan NP BODY FLUIDS AND STOOLS ORD ERABLES Final Result [facility] [address] [place] [address] from Last 3 Months or Most Recently Relevant to Health Maintenance Insurance UNITED UMR UNITED R UNITED [address] [place], [place] [id number] R R Care Teams Gun Striper Relationship Specialty Start Date End Date Pcp, Unknown PCP - General 09/23/24 Additional Source Comments The information contained in this document represents components of the legal health record. It is not the complete legal health record.[facility]
[2025-04-03 13:43] VITALS: BP 124/61; PULSE 90; BMI 37.2
== END 2025-04-03 13:56 | disposition home or self-care (01) ==
LOC: HO.HGS 13:35
PROVIDERS: PCP Nurse Practitioner Family; Visit Provider Surgery
DX: K57.20 Diverticulitis of large intestine with perforation and abscess without bleeding (principal)
CPT/HCPCS: 99024

== ENCOUNTER 2025-04-04 12:46 | Outpatient (REF) | payer OTHER, SELFPAY ==
--- NOTE | ~2025-04-04 | FL_ITS ---
EXAMINATION: XR CYSTOGRAPHY CLINICAL INFORMATION: S37.23XA - Laceration of bladder, initial encounter COMPARISON: CT abdomen and pelvis 03/19/2025. TECHNIQUE: A KUB was obtained prior to the procedure. Subsequently 250 mL of Cystografin was inserted as serial imaging of bladder and different projections was performed under fluoroscopy. Postprocedure bladder was drained of most of the Cystografin with postevacuation images obtained. FINDINGS: On KUB obtained prior to the procedure there is a Saleem's catheter in the bladder and drainage catheter extending from the pelvis to the right lower quadrant. Following slow retrograde insertion of contrast a Saleem's catheter there is normal distention of bladder with no extravasation of contrast seen from the bladder into the peritoneum after retrograde administration of 250 mL of Cystografin. Postevacuation images reveal minimal Cystografin contrast and bladder. No retroperitoneal or extravasated Cystografin contrast seen. FLUOROSCOPY TIME: 1 minute 49 seconds DOSE AREA PRODUCT: 72.10 uGy-m2 (microgray-meter squared) FL/FL cystogram IMPRESSION: There is no externalization of Cystografin contrast from the bladder into the retroperitoneum or the peritoneal cavity at this time. Postevacuation images reveals minimal retained contrast within the bladder. This will empty of slowly. Electronically signed by: Yehuda Lund MD 04/04/2025 02:05 PM EDT
== END 2025-04-04 12:47 | disposition home or self-care (01) ==
LOC: HO.XRAY 12:46
PROVIDERS: PCP Nurse Practitioner Family; Visit Provider Urology
DX: S37.23XA Laceration of bladder, initial encounter (principal)
CPT/HCPCS: 51600; 74455

== ENCOUNTER → 2025-04-04 12:48 | Outpatient (BNV) | payer OTHER, SELFPAY | PROVIDERS: PCP Nurse Practitioner Family; Visit Provider Radiology Diagnostic Radiology | DX: S37.23XA Laceration of bladder, initial encounter (principal) | CPT/HCPCS: 51600 ==

== ENCOUNTER 2025-04-09 10:52 | Outpatient (AMB) | payer OTHER, SELFPAY ==
--- OUTSIDE RECORDS SUMMARY | 2025-04-09 13:17 | XMS_ITS | Clinical Summary ---
Author Organization [facility] Address [address] [facility] [address] [place] [address] Phone Care Team Providers Care Assembly Machine Offbearer Name Role Phone Pcp, Unknown Primary Care Provider Unavailabl e Encounters Date Type Department Care Team Description 03/05/2025 8:16 AM EDT - 03/05/2025 11:59 PM EDT Hospital Encounter [facility] [address] [place] [address] Juan Ledesma MD Discharge Disposition: Home or [...] Description 07/08/2025 9:45 AM EST Office Visit [facility] Gastroenterology Clinic [address] [place] [address] Unknown, Unknown, Juan James MD [address] [place] [phone] [email or web address] * Anatomic Pathology (03/05/2025 12:00 AM EDT) Report [address] [address] Cartridge Belt Puncher: Waqas Ta MD Surgical Pathology Report FINAL [...] reflux disease, last colonoscopy previous aborted/incomplete at [facility] May 2022 SPECIMENS SUBMITTED: A: DUODENUM, [...] single cassette labeled B1. Grossed by: MARVA Williamson PA(ASCP) [id number] 03/06/2025 Grossing Staff: [id number] Patient Name: FLORES VELEZ : 1960 (Age: 64) Sex: F Institution: [facility] Location: [facility] Date of Operation: 03/05/2025 Date of Reported: 03/07/2025 13:55 Results To: Juan Ledesma MD [facility] Chastity Yuan NP [facility] Clinical History Iron deficiency anemia, gastroesophageal reflux disease, last colonoscopy previous aborted/incomplete at [facility] May 2022 [facility] Final Diagnosis A. DUODENUM, BIOPSY: No pathologic abnormality. B. COLON POLYP AT 55CM: Inflammatory polyp. [facility] Gross Description A. DUODENUM, BIOPSY: Received in formalin are [...] single cassette labeled B1. Grossed by: MARVA Williamson PA(ASCP) [facility] Conversion Type 03/05/2025 10:37 AM EDT us Juan Ledesma MD PATHOLOGY ORDERABLES Edited Re aaront - Final Performing Organization Address [facility]/ZIP Co de Phone Number [address] [address] * Fecal immunochemical test x1 (FIT) (09/23/2024 5:40 PM EDT) Immuno Fecal Occult Negative Negative [facility] Stool (Stool) 09/23/2024 5:4 0 PM EDT 09/23/2024 5:42 PM EDT us Chastity Yuan NP BODY FLUIDS AND STOOLS ORD ERABLES Final Result Performing Organization Address City/[facility]/ZIP Co de Phone Number [address] [address] from Last 3 Months or Most Recently Relevant to Health Maintenance [place] [address] [place] [address] [facility] Care Teams Assembly Machine Offbearer Relationship Specialty Start Date End Date Pcp, Unknown PCP - General 09/23/24 Additional Source Comments The information contained in this document represents components of the legal health record. It is not the complete legal health record.[facility]
--- NOTE | 2025-04-18 14:02 | AM.OFFVISNUR ---
Intake Visit Reasons: ostomy assistance Allergies No Known Allergies (No Known Allergies*) Allergy (Verified 04/16/25 10:40) Nursing Note Pt reports to the office for assistance with her ostomy. She was concerned about redness of the nawaf-stomal skin. Removed old appliance. Skin is actually doing very well. Pt states the redness has decreased and looks much better. No skin breakdown, stoma pink and well perfused. Area cleansed, new appliance cut to fit, skin prep applied and new bag sealed in place. Pt will be receiving new shipment of supplies next week from [employer]. Pt knows to call for if she has any other problems or concerns. Coding Level of Care Code Established Pt Est Pt Level 1 (56483) Patient Type Established History Problem Focused Exam Problem Focused Medical Decision Making Straight Forward Time Spent (min) 20 Comment ostomy appliance
== END 2025-04-09 11:28 | disposition home or self-care (01) ==
LOC: HO.HGS 10:52
PROVIDERS: PCP Nurse Practitioner Family; Visit Provider Surgery
DX: Z43.3 Encounter for attention to colostomy (principal)
CPT/HCPCS: 99024

== ENCOUNTER 2025-04-16 10:30 | Outpatient (AMB) | payer OTHER, SELFPAY ==
--- NOTE | 2025-04-16 10:32 | A.OFFVIS_ITS ---
Vital Signs 04/16/25 10:39 Height 5 ft 2 in Weight 190 lb BMI 34.7 BP 124/74 Blood Pressure Location Rt brachial Position Sitting Pulse 94 Intake Visit Reasons: 2 week follow up S/P resection of the sigmoid Intake Note: Patient presents for two week follow-up status post resection of sigmoid. Pt c/o; no complaints DI: MIN:04/03/2025 Cystogram: 04/04/2025 Upcoming appointment: Dr. Brody-04/22/2025 @ 0915am Plastic Fabricator Required: No Accompanied by: Family/Other Allergies No Known Allergies (No Known Allergies*) Allergy (Verified 04/16/25 10:40) HPI HPI 2 week follow up S/P resection of the sigmoid: Details: She is here for follow-up after hand assisted laparoscopic sigmoid resection, end colostomy, with removal of part of the bladder wall, excision of a large, thick abscess cavity in the pelvis likely secondary to perforated diverticulitis last 03/20/2025. I had seen her for follow-up last week and schedule her for another follow up this week. She still has a Saleem catheter in place. This appears clear and she has good urine output. Her stoma has been functioning well. She has good oral intake although she admits says she does not have her appetite back yet. She still has a NADINE drain to the pelvis. This says that for the past 2 days, there had been very little output from the NADINE drain but she noticed 20 cc this morning. She has good oral intake. Her stoma has been functioning well, but she did have redness on the skin because of stool leakage earlier this week. [facility] Medical History Anxiety HTN (hypertension) Class 2 obesity Depression HLD (hyperlipidemia) GERD (gastroesophageal reflux disease) Borderline diabetes Iron deficiency anemia Diverticulitis of colon with perforation Surgical History Hx of surgical procedure (~03/20/25) Status post surgical removal of malignant neoplasm of skin Social History Household Members: Family Housing: House Do you presently have visiting nurse or other home services: No Patient Tobacco Use Status: Former Tobacco user service: No Review of Systems Const Denies chills and Denies fever(s) Card Denies chest pain at rest Resp Denies cough GI Denies abdominal pain Details: Saleem in place Physical Exam Const General: comfortable and no acute distress Resp Effort & Inspection: normal respiratory effort Cardio Rate: regular rate GI Other: Incision is healing well although with drainage from the lower part appearing seropurulent Stoma functioning well Palpation (GI): Soft to palpation, not firm and no guarding Other: Saleem in place, appears a little cloudy Assessment & Plan Assessment & Plan (1) Diverticulitis of colon with perforation: Code(s): K57.20 - Diverticulitis of large intestine with perforation and abscess without bleeding Category: Medical Plan: Status sigmoid resection, end colostomy, excision of a large abscess cavity with stool, bladder repair. Her NADINE drain has had very scanty output the past 2 days but there was 90 cc this morning so I will keep this in place. She had a cystogram done last April 04 which did not reveal any leak. She is to see urology next week for possible removal of the Saleem catheter. She has been draining some seropurulent fluid as well from the lower part of the incision so I have instructed her on how to care for this with good dressing changes I will see her again in the office in about 2 weeks. Coding Level of Care Code Global (35239) Diagnoses Diverticulitis of colon with perforation K57.20
[2025-04-16 10:39] VITALS: BP 124/74; PULSE 94; BMI 34.7
--- OUTSIDE RECORDS SUMMARY | 2025-04-16 13:16 | XMS_ITS | Clinical Summary ---
Author Organization [facility] Address [address] [facility] [address] [place] [address] Phone Care Team Providers Care Social Services Analyst Name Role Phone Pcp, Unknown Primary Care Provider Unavailabl e Encounters Date Type Department Care Team Description 03/05/2025 8:16 AM EDT - 03/05/2025 11:59 PM EDT Hospital Encounter [facility] [address] [place] [address] Juan Ledesma MD Discharge Disposition: Home or [...] Description 07/08/2025 9:45 AM EST Office Visit [facility] [address] [place] [address] Unknown, Unknown, Juan James MD [address] [place] [phone] [email or web address] Health Maintenance Due Date Last Done Comments [...] Anatomic Pathology (03/05/2025 12:00 AM EDT) Report [address] [address] Crew Manager: Waqas Ta MD Surgical Pathology Report FINAL [...] reflux disease, last colonoscopy previous aborted/incomplete at [facility] May 2022 SPECIMENS SUBMITTED: A: DUODENUM, BIOPSY [...] : 1960 (Age: 64) Sex: F Institution: [facility] Location: [facility] Date of Operation: 03/05/2025 Date of Reported: 03/07/2025 13:55 Results To: Juan Ledesma MD [facility] Chastity Yuan NP [facility] Clinical History Iron deficiency anemia, gastroesophageal reflux disease, last colonoscopy previous aborted/incomplete at [facility] May 2022 [facility] Final Diagnosis A. DUODENUM, BIOPSY: No pathologic abnormality. B. COLON POLYP AT 55CM: Inflammatory polyp. [facility] Gross Description A. DUODENUM, BIOPSY: Received [...] labeled B1. Grossed by: MARVA Williamson PA(ASCP) [facility] Conversion Type 03/05/2025 10:37 AM EDT us Juan Ledesma MD PATHOLOGY ORDERABLES Edited Re aaront - Final Performing Organization Address [facility]/ZIP Co de Phone Number [address] [address] * Fecal immunochemical test x1 (FIT) (09/23/2024 5:40 PM EDT) Immuno Fecal Occult Negative Negative [facility] Stool (Stool) 09/23/2024 5:4 0 PM EDT 09/23/2024 5:42 PM EDT us Chastity Yuan NP BODY FLUIDS AND STOOLS ORD ERABLES Final Result Performing Organization Address City/[facility]/ZIP Co de Phone Number [address] [address] from Last 3 Months or Most Recently Relevant to Health Maintenance [place] [address] [address] [place] [address] [place] [address] [facility] Care Teams Social Services Analyst Relationship Specialty Start Date End Date Pcp, Unknown PCP - General 09/23/24 Additional Source Comments The information contained in this document represents components of the legal health record. It is not the complete legal health record.[facility]
== END 2025-04-16 11:02 | disposition home or self-care (01) ==
LOC: HO.HGS 10:31
PROVIDERS: PCP Nurse Practitioner Family; Visit Provider Surgery
DX: K57.20 Diverticulitis of large intestine with perforation and abscess without bleeding (principal)
CPT/HCPCS: 99024

== ENCOUNTER 2025-04-22 08:43 | Outpatient (AMB) | payer OTHER, SELFPAY ==
--- OUTSIDE RECORDS SUMMARY | 2025-04-18 23:59 | XMS_ITS | Continuity of Care Document ---
Author Organization [facility] Prashanth Pratik lt Address [address] [place] [address]- Care Team Providers Care Spoke Maker Name Role Phone Kwabena JURADO, Chastity Jenkins Primary Care Physician [facility] [id number] Date(s): 03/19/25 - 04/18/25 [facility] Adult [address] [place] [address]- Encounter Type: Triage Allergies, Adverse Reactions, Alerts No Known Allergies Immunizations Given and Recorded Vaccine Date Status Refusal Reason tetanus/diphtheria/pertussis, acel(Tdap) 08/23/22 Given tetanus/diphtheria/pertussis, acel(Tdap) 07/13/11 Given SARS-CoV-2 (COVID-19) mRNA-1273 vaccine 04/28/21 R ecorded SARS-CoV-2 (COVID-19) mRNA-1273 vaccine 10/12/20 R ecorded SARS-CoV-2 (COVID-19) mRNA-1273 vaccine 09/14/20 R ecorded pneumococcal 23-valent vaccine 09/01/14 Given influenza virus vaccine, inactivated 1 09/01/14 Gi ghislaine 1Admin Note: declined Medications citalopram 20 mg oral tablet 1 tablet, By Mouth, Daily, for 90 days, # 90 tablet, 2 Refills, Physician Stop 11/15/25 9:58:00 AM EDT, 02/18/25 9:58:00 AM EDT, [facility], 158, cm, 08/08/24 9:24:00 EST, Height Start Date: 02/18/25 Stop Date: 11/15/25 Status: Ordered Medication Dispense Status: Completed Quantity: 90.0 Unit: tablet Total Allowed Fills: 3 Fills Dispensed: 0 Crestor 10 mg oral tablet 1 tablet = 10 mg, By Mouth, Daily, replace simvastatin, # 30 tablet, 5 Refills, Maintenance, 03/29/25 3:33:00 PM EDT, Tablet, [facility] # [facility], Partial fill upon patient request if the prescriptionis for a schedule II opioid drug., 158, cm, 03/19/25 12:12:00 EDT, Height Start Date: 03/29/25 Status: Ordered Medication Dispense Status: Completed Quantity: 30.0 Unit: tablet Total Allowed Fills: 6 Fills Dispensed: 0 ferrous sulfate 325 mg oral enteric coated tablet 325 mg, 1, tablet, By Mouth, 2 times a day, # 60 tablet, Refills 3, Tot. Refills 3, Maintenance, 03/08/24 9:38:00 AM EDT, Route to Pharmacy Electronically, [facility], Partial fill upon patient request if the prescription is for a schedule II opioid drug., 158, cm, 03/06/24 8:33:00 EDT, Height Start Date: 03/08/24 Stop Date: 07/06/24 Status: Ordered Medication Dispense Status: Completed Quantity: 60.0 Unit: tablet Total Allowed Fills: 4 Fills Dispensed: 0 meloxicam 15 mg oral tablet 1 tablet = 15 mg, By Mouth, Daily, # 30 tablet, 0 Refills, Maintenance, 08/08/24 9:30:00 AM EST, Tablet, [facility], Partial fill upon patient request if the prescription is for a schedule IIopioid drug., 158, cm, 08/08/24 9:24:00 EST, Height Start Date: 08/08/24 Status: Ordered Medication Dispense Status: Completed Quantity: 30.0 Unit: tablet Total Allowed Fills: 1 Fills Dispensed: 0 MetFORMIN (Eqv-Glucophage XR) 500 mg oral tablet, extended release 1 tablet = 500 mg, By Mouth, Daily, # 90 tablet, 3 Refills, Maintenance, 07/10/24 9:35:00 AM EST, [facility], Partial fill upon patient request if the prescription is for a schedule II opioid drug., 158, cm, 07/10/24 9:18:00 EST, Height Start Date: 07/10/24 Status: Ordered Medication Dispense Status: Completed Quantity: 90.0 Unit: tablet Total Allowed Fills: 4 Fills Dispensed: 0 olmesartan 40 mg oral tablet 1 tablet = 40 mg, By Mouth, Daily, # 30 tablet, 5 Refills, Maintenance, 11/04/24 8:25:00 PM EDT, [facility], Partial fill upon patient request if the prescription is for a schedule II opioid drug., 158, cm, 08/08/24 9:24:00 EST, Height Start Date: 11/04/24 Status: Ordered Medication Dispense Status: Completed Quantity: 30.0 Unit: tablet Total Allowed Fills: 6 Fills Dispensed: 0 pantoprazole 40 mg oral delayed release tablet 1 tablet, By Mouth, Daily, # 30 tablet, 5 Refills, Maintenance, 05/05/24 1:19:00 PM EST, 158, cm, 03/20/24 12:11:00 EDT, Height Start Date: 05/05/24 Status: Ordered Medication Dispense Status: Completed Quantity: 30.0 Unit: tablet Total Allowed Fills: 6 Fills Dispensed: 0 PANTOPRAZOLE SODIUM 40MG TBEC PANTOPRAZOLE SODIUM 40MG TBEC, 1, tablet, By Mouth, Daily, # 30 tablet, 5 Refills, Maintenance, 11/19/24 8:18:00 AM EDT, 158, cm, 08/08/24 9:24:00 EST, Height Start Date: 11/19/24 Status: Ordered Medication Dispense Status: Completed Quantity: 30.0 Unit: tablet Total Allowed Fills: 1 Fills Dispensed: 0 ProAir HFA 90 mcg/inh inhalation aerosol with adapter 2, puffs, Inhalation, Every 6 hours, PRN, # 8.5 Gm, Refills 0, Tot. Refills 0, Maintenance, :54:00 PM EDT, Aerosol, Route to Pharmacy Electronically, [id number], [facility] # [facility], 157.5, cm, 12/03/21 13:26:00 EDT, Height Start Date: 12/03/21 Status: Ordered Medication Dispense Status: Completed Quantity: 8.5 Unit: g Total Allowed Fills: 1 Fills Dispensed: 0 Indications: Unspecified asthma with (acute) exacerbation; Problem List Condition Confirmation Course Effective Dates Status Health Status Informant Anxiety depression Confirmed Active Colostomy in place Confirmed Active Gastroesophageal reflux disease Confirmed Active Hypercholesterolemia Confirmed Active Hypertension Confirmed Active Hypertension Confirmed Active FANNY - Iron deficiency anemia Confirmed Active Insomnia Confirmed Active Asthma, mild intermittent Confirmed Active Onychomycosis Confirmed Active Prediabetes Confirmed Active Psoriasis Confirmed Active Depression, major, recurrent Confirmed Active Severe obesity (BMI 35.0-39.9) with comorbidity Confirmed Active Tobacco abuse, 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) Confirmed Active Social History Social History Type Response Smoking Status Former smoker; Type: Cigarettes; Other: quit 10 months ago; Number of years: 40; Started at age: 15; Stopped at age: 53; entered on: 09/04/15 Sex Sex Representation Female (finding) Patient Care team information Care Team Personnel Name: Kwabena JURADO, Chastity Jenkins Position: [facility] PCO Associate Professional Member Role: PCP Address: [address] [place] [id number] Telecom: Care Team Related Persons Name: JENS DUARTE Name: TANNER LIU Insurance Providers Guarantor name: CHERYL VELEZ Health Plan Information #: 1 Payer: UMR H61 Payer Identifier: FRANCY Member Number: [id number] Group Number: [id number] Subscriber Identifier: FRANCY Relationship to Subscriber: self Coverage Type: PRIVATE HEALTH INSURANCE Coverage Verification Date: NA Telecom: NA Address:
--- OUTSIDE RECORDS SUMMARY | 2025-04-18 23:59 | XMS_ITS | Continuity of Care Document ---
Author Organization [facility] ter Address [address] [place] [address]- Care Team Providers Care Folder Stitcher Operator Name Role Phone Kwabena JURADO, Chastity Jenkins Primary Care Physician [phone] [facility]counter [facility] [id number] Date(s): 03/19/25 - 04/18/[address] [address]- Attending Physician: Lin Maxwell Admitting Physician: Lin Maxwell Referring Physician: Lin Maxwell Encounter Type: Pre-Outpt Allergies, Adverse Reactions, Alerts No Known Allergies [...] Refills, Maintenance, 03/29/25 3:33:00 PM EDT, Tablet, [facility], Partial fill upon patient [...] 9:38:00 AM EDT, Route to Pharmacy Electronically, [facility] #[facility], Partial fill upon patient [...] Refills, Maintenance, 08/08/24 9:30:00 AM EST, Tablet, [facility] # 50, Partial fill upon patient [...] 3 Refills, Maintenance, 07/10/24 9:35:00 AM EST, [facility], Partial fill upon patient [...] 5 Refills, Maintenance, 11/04/24 8:25:00 PM EDT, [facility] #[facility], Partial fill upon patient request [...] PM EDT, Aerosol, Route to Pharmacy Electronically, [id number], [facility] # [facility], 157.5, cm, 12/03/21 13:26:00 [...] Care team information Care Team Personnel Name: Chastity Yuan NP Position: [facility] PCO Associate Professional Member Role: PCP Address: [address] [place] [id number] Telecom: Care Team Related Persons Name: JENS DUARTE Name: TANNER LIU Insurance Providers Guarantor name: CHERYL VELEZ Health Plan Information #: 1 Payer: UMR H61 Payer Identifier: FRANCY Member Number: [id number] Group Number: [id number] Subscriber Identifier: [id number] Relationship to Subscriber: self Coverage Type: PRIVATE HEALTH INSURANCE Coverage Verification Date: NA Telecom: NA Address:
--- NOTE | 2025-04-22 08:54 | MHC.OFFVIS ---
Intake Visit Reasons: bladder laceration /VT Intake Note: New Patient is present for Bladder laceration Voiding Trial Urology Rx: none Voided Hat : 80 mls Blood Thinners:none Imaging completed: none Biological Photographer Required: No Accompanied by: Self / Same As Patient Allergies No Known Allergies (No Known Allergies*) Allergy (Verified 04/30/25 14:15) HPI Comments Details: Flores is a pleasant female. She is a patient of Dr. Yuan. She is seen for the following urologic conditions - bladder laceration Here for voiding trial Underwent partial colectomy for phlegmon diverticular disease Bladder involvement was noted Bladder repair performed with Ortiz catheter Cystogram performed earlier this week normal Voiding trial successful today P.r.n. follow-up urology [facility] Medical History Anxiety HTN (hypertension) Class 2 obesity Depression HLD (hyperlipidemia) GERD (gastroesophageal reflux disease) Borderline diabetes Iron deficiency anemia Diverticulitis of colon with perforation Surgical History Hx of surgical procedure (~03/20/25) Status post surgical removal of malignant neoplasm of skin Social History Household Members: Family Housing: House Do you presently have visiting nurse or other home services: No Patient Tobacco Use Status: Former Tobacco user service: No Review of Systems Const Denies chills and Denies fever(s) Card Reports no additional complaints and Denies syncope Resp Denies cough GI Denies abdominal pain and Denies heartburn Reports as per HPI and Denies change in libido Neuro Denies syncope Psych Denies change in libido Endo Denies change in libido Physical Exam Const General: cooperative, healthy appearing, comfortable and no acute distress Orientation/consciousness: patient oriented x3 HEENT Face and sinus: Yes normal facial exam Mouth: moist mucous membranes Neck Neck: Yes normal visual inspection, Yes full ROM and Yes trachea midline Chest Chest palpation & inspection: normal inspection of the chest Resp Effort & Inspection: normal respiratory effort, able to speak in complete sentences and no respiratory distress GI Inspection: Yes normal to inspection Back/Spine/Pelvis Cervical Spine: normal cervical lordosis Thoracic/Lumbar Spine: thoracic and lumbar spine normal to inspection Skin General skin exam: no rashes or lesions noted Neuro General: patient oriented x3, gait normal, tone normal and moves all extremities Extrem General: Yes normal to inspection and Yes capillary refill normal Office Procedures Bladder/Catheter Procedure Details: Patient presents to office for voiding trial s/p bladder laceration. approximately 80 mls sterile water instilled through catheter, patient tolerated well. Patient was not able to tolerate 120mls. Removed 16fr ortiz catheter, patient tolerated removal well. Patient used bathroom and voided 80mls, will meet with provider for visit. 63585-Ebyxjncjpy of Bladder Procedure code (CPT) selection complete Post Void Residual Post Residual Void Post Void Residual (PVR): 0 21569-Opei Void Residual by ultrasound Assessment & Plan Assessment & Plan (1) Laceration of bladder: Code(s): S37.23XA - Laceration of bladder, initial encounter Category: Medical Plan P.r.n. follow-up Orders: Orders AMB Bladder/Catheter Procedure 04/22/25 S37.23XA - Laceration of bladder, initial encounter AMB Post Void Residual by ultrasound 04/22/25 S37.23XA - Laceration of bladder, initial encounter Patient Instructions: This note is constructed using voice recognition software. While every effort has been made to ensure accuracy interior design consultant errors may have been included. Imaging studies, laboratory and physical exam results were discussed and reviewed in detail. No major barriers to patient understanding were identified. An opportunity to ask questions regarding the treatment plan was provided. All questions were answered. The patient expressed understanding and agreement with the above treatment plan. The patient is aware they should contact our office by phone for worsening of their current condition or the appearance of new urologic symptoms. Compliance is encouraged with any medications and followup testing that is ordered. It is a privilege to participate in the urologic care of your patient. If you have any questions or concerns regarding treatment for the above conditions, or other urologic issues, please do not hesitate to contact me. The office telephone contact is [phone]. Sincerely, Dr Dom Brody MD, [facility] - Urology Compassionate Specialist Care for the Genitourinary System Coding Level of Care Code Est Pt Level 3 (14217) Diagnoses Laceration of bladder S37.23XA CPT Codes Bladder/Catheter Procedure - CPT: 99577-Gwflgbqljd of Bladder ([id number]) Post Residual Void - PVR CPT Code: 72172-Liev Void Residual by ultrasound ([id number])
--- OUTSIDE RECORDS SUMMARY | 2025-04-22 09:28 | XMS_ITS | Clinical Summary ---
Author Organization [facility] Address [address] [facility] [address] [facility] [address] [place] [address] Phone Care Team Providers Care Exerciser Horse Name Role Phone Pcp, Unknown Primary Care Provider Unavailabl e Encounters Date Type Department Care Team Description 03/05/2025 8:16 AM EDT - 03/05/2025 11:59 PM EDT Hospital Encounter [facility] [address] [place] [address] Juan Ledesma MD Discharge Disposition: Home or [...] Description 07/08/2025 9:45 AM EST Office Visit [facility] Gastroenterology Clinic [address] [place] [address] Unknown, Unknown, Juan James MD [address] [place] [id number] [email or web address] Health Maintenance Due Date Last Done Comments [...] Anatomic Pathology (03/05/2025 12:00 AM EDT) Report [address] [address] Stockroom Coordinator: Waqas Ta MD Surgical Pathology Report FINAL [...] reflux disease, last colonoscopy previous aborted/incomplete at [facility] May 2022 SPECIMENS SUBMITTED: A: DUODENUM, [...] : 1960 (Age: 64) Sex: F Institution: [facility] Location: [facility] Date of Operation: 03/05/2025 Date of Reported: 03/07/2025 13:55 Results To: Juan Ledesma MD [facility] Chastity Yuan NP [facility] Clinical History Iron deficiency anemia, gastroesophageal reflux disease, last colonoscopy previous aborted/incomplete at [facility] May 2022 [facility] Final Diagnosis A. DUODENUM, BIOPSY: No pathologic abnormality. B. COLON POLYP AT 55CM: Inflammatory polyp. [facility] Gross Description A. DUODENUM, BIOPSY: Received in [...] labeled B1. Grossed by: MARVA Williamson PA(ASCP) [facility] Conversion Type 03/05/2025 10:37 AM EDT us Juan Ledesma MD PATHOLOGY ORDERABLES Edited Re aaront - Final Performing Organization Address [facility]/ZIP Co de Phone Number [address] [address] * Fecal immunochemical test x1 (FIT) (09/23/2024 5:40 PM EDT) Immuno Fecal Occult Negative Negative [facility] Stool (Stool) 09/23/2024 5:4 0 PM EDT 09/23/2024 5:42 PM EDT us Chastity Yuan NP BODY FLUIDS AND STOOLS ORD ERABLES Final Result Performing Organization Address City/[facility]/ZIP Co de Phone Number [address] [address] from Last 3 Months or Most Recently Relevant to Health Maintenance [place] [address] [place] [address] [place] [address] [facility] Care Teams Exerciser Horse Relationship Specialty Start Date End Date Pcp, Unknown PCP - General 09/23/24 Additional Source Comments The information contained in this document represents components of the legal health record. It is not the complete legal health record.[facility]
== END 2025-04-22 10:24 | disposition home or self-care (01) ==
LOC: HO.HUSH 08:44
PROVIDERS: PCP Nurse Practitioner Family; Visit Provider Urology
DX: S37.23XA Laceration of bladder, initial encounter (principal)
CPT/HCPCS: 99024

== ENCOUNTER 2025-04-30 13:58 | Outpatient (REF) | payer OTHER, SELFPAY ==
[2025-04-30 15:53] LABS: Blood Urea Nitrogen 7 mg/dL (9-16); Estimated Glomerular Filt Rate > 60
== END 2025-04-30 13:59 | disposition home or self-care (01) ==
LOC: HO.LAB 13:58
PROVIDERS: PCP Nurse Practitioner Family; Visit Provider Surgery
DX: K57.20 Diverticulitis of large intestine with perforation and abscess without bleeding (principal); Z93.3 Colostomy status
CPT/HCPCS: 36415; 82565; 84520

== ENCOUNTER 2025-04-30 13:58 | Outpatient (AMB) | payer OTHER, SELFPAY ==
--- OUTSIDE RECORDS SUMMARY | 2025-04-27 23:59 | XMS_ITS | Continuity of Care Document ---
Author Organization [facility] Prashanth Pratik lt Address [address] [place] [address]- Care Team Providers Care Tree Feller Name Role Phone Kwabena JURADO, Chastity Jenkins Primary Care Physician [id number] - [facility]/27/25 [facility] Adult [address] [place] [address]- Encounter Type: Triage Allergies, Adverse Reactions, Alerts [...] Refills, Maintenance, 03/29/25 3:33:00 PM EDT, Tablet, [facility] # [facility], Partial fill upon patient [...] 9:38:00 AM EDT, Route to Pharmacy Electronically, [facility], Partial fill upon patient request [...] Refills, Maintenance, 08/08/24 9:30:00 AM EST, Tablet, [facility] # [facility], Partial fill upon patient [...] 3 Refills, Maintenance, 07/10/24 9:35:00 AM EST, [facility], Partial fill upon patient [...] 5 Refills, Maintenance, 11/04/24 8:25:00 PM EDT, [facility] #[facility], Partial fill upon [...] PM EDT, Aerosol, Route to Pharmacy Electronically, [id number], [facility] # 50, 157.5, cm, 12/03/21 13:26:00 [...] Personnel Name: Kwabena JURADO, Chastity Jenkins Position: S PCO Associate Professional Member Role: PCP Address: [address] [place] [id number] Telecom: Care Team Related Persons Name: JENS DUARTE Name: TANNER LIU Insurance Providers Guarantor name: CHERYL VELEZ Health Plan Information #: 1 Payer: UMR H61 Payer Identifier: FRANCY Member Number: [id number] Group Number: [id number] Subscriber Identifier: FRANCY Relationship to Subscriber: self Coverage Type: PRIVATE HEALTH INSURANCE Coverage Verification Date: NA Telecom: NA Address:
--- OUTSIDE RECORDS SUMMARY | 2025-04-28 23:59 | XMS_ITS | Continuity of Care Document ---
Author Organization [facility] Prashanth Pratik lt Address [address] [place] [address]- Care Team Providers Care Fixed Income Manager Name Role Phone Kwabena JURADO, Chastity Jenkins Primary [facility] Phys[id number] Date(s): 03/29/25 - 04/28/25 [facility] Adult [address] [place] [address]- Encounter Type: Triage Allergies, Adverse Reactions, Alerts [...] Refills, Maintenance, 03/29/25 3:33:00 PM EDT, Tablet, [facility] [...] 3 Refills, Maintenance, 07/10/24 9:35:00 AM EST, [facility], Partial fill upon patient [...] 5 Refills, Maintenance, 11/04/24 8:25:00 PM EDT, [facility], Partial fill upon patient request [...] PM EDT, Aerosol, Route to Pharmacy Electronically, [id number], [facility] # [...] PCO Associate Professional Member Role: PCP Address: [address] [place] [id number] Tele[facility]: Care Team Related Persons Name: JENS DUARTE Name: TANNER LIU Insurance Providers Guarantor name: CHERYL VELEZ Health Plan Information #: 1 Payer: UMR H61 Payer Identifier: FRANCY Member Number: [id number] Group Number: [id number] Subscriber Identifier: FRANCY Relationship to Subscriber: self Coverage Type: PRIVATE HEALTH INSURANCE Coverage Verification Date: NA Telecom: NA Address:
--- NOTE | 2025-04-30 14:06 | A.OFFVIS_ITS ---
Vital Signs 04/30/25 14:08 Height 5 ft 2 in Weight 196 lb 4 oz BMI 35.9 BP 140/65 H Blood Pressure Location Rt brachial Position Sitting Pulse 94 Intake Visit Reasons: 2 week follow up S/P resection of the sigmoid Intake Note: This patient presents for an assessment for two week follow-up status post Hand assisted laparoscopic resection of the sigmoid, resection of a large cavity containing stool, with a fistulous tract to the sigmoid, extensive lysis of adhesions; extensive dissection of the cavity and sigmoid off of the bladder wall, with repair of a large tear on the bladder wall, end colostomy from the remaining sigmoid. Pt c/o; reports I am hoping the drain come off today , no other symptoms or concerns at this time. Postdoctoral Scholar Required: No Accompanied by: Mother Allergies No Known Allergies (No Known Allergies*) Allergy (Verified 04/30/25 14:15) HPI HPI 2 week follow up S/P resection of the sigmoid: Details: She is here for follow-up after hand assisted laparoscopic sigmoid resection, end colostomy, with removal of part of the bladder wall, excision of a large, thick abscess cavity in the pelvis likely secondary to perforated diverticulitis last 03/20/2025. I have been following her in the office regularly was then. She still has the NADINE drain in place. She says that still puts out purulent material but the volume has decreased significantly She says she feels well overall. She has good oral intake. She says she thinks she has gained lb since I last saw her. Her stoma has been functioning well. She does admit to having occasional issues with the stoma appliance coming off. Her Saleem catheter has been removed. [facility] Medical History Anxiety HTN (hypertension) Class 2 obesity Depression HLD (hyperlipidemia) GERD (gastroesophageal reflux disease) Borderline diabetes Iron deficiency anemia Diverticulitis of colon with perforation Surgical History Hx of surgical procedure (~03/20/25) Status post surgical removal of malignant neoplasm of skin Social History Household Members: Family Housing: House Do you presently have visiting nurse or other home services: No Patient Tobacco Use Status: Former Tobacco user service: No Review of Systems Const Denies chills and Denies fever(s) Card Denies chest pain at rest Resp Denies cough GI Details: Stoma functioning well Physical Exam Vital Signs: Last Vital Signs Pulse 94 04/30/25 14:08 BP 140/65 H 04/30/25 14:08 BMI result Body Mass Index 35.9 Const General: comfortable and no acute distress Resp Effort & Inspection: normal respiratory effort Cardio Rate: regular rate GI Other: Midline incision with some scanty drainage in the inferior aspect, purulent looking; NADINE drain in the right side also with some thick purulent fluid although scanty, functioning well Palpation (GI): Soft to palpation, not firm and nontender Assessment & Plan Assessment & Plan (1) Diverticulitis of colon with perforation: Code(s): K57.20 - Diverticulitis of large intestine with perforation and abscess without bleeding Category: Medical Plan: Status post resection, with end colostomy and repair of bladder. She is actuall y doing very well. Her Saleem catheter has been removed. She still has purulent material coming out of her NADINE drain as well as the lower part of her incision. I would therefore keep the NADINE drain in place until the volume really decreases significantly I will send her for a CAT scan to check if there is any benefit to placing additional drains. I will see her again in the office after her CAT scan. She is doing very well overall. Coding Level of Care Code Global (78111) Diagnoses Diverticulitis of colon with perforation K57.20
[2025-04-30 14:08] VITALS: BP 140/65; PULSE 94; BMI 35.9
--- OUTSIDE RECORDS SUMMARY | 2025-04-30 17:10 | XMS_ITS | Clinical Summary ---
Author Organization [facility] Address [address] [facility] [address] [place] [phone] Phone Care Team Providers Care Precision Mechanical Instrument Maker Name Role Phone Pcp, Unknown Primary Care Provider Unavailabl e Encounters Date Type Department Care Team Description 03/05/2025 8:16 AM EDT - 03/05/2025 11:59 PM EDT Hospital Encounter [facility] [address] [place] [address] Juan Ledesma MD Discharge Disposition: Home or [...] Description 07/08/2025 9:45 AM EST Office Visit [facility] [address] [place] [address] Unknown, Unknown, Juan James MD [address] [place] [phone] [email or web address] Health Maintenance Due Date Last Done Comments [...] PATHOLOGY Routine 03/05/2025 12 :00 AM EDT FECAL IMMUNOCHEMICAL BLOOD TEST X1 (FIT) Routine 09/23/2024 5:40 PM EDT Iron deficiency anemia, unspecified iron deficiency anemia type from Last 3 Months or Most Recently Relevant to Health Maintenance Results * Anatomic Pathology (Non-MGB) (03/05/2025 12:00 AM EDT) Report [address] [address] Sr. Payroll Processor: Waqas Ta MD Surgical Pathology Report FINAL [...] reflux disease, last colonoscopy previous aborted/incomplete at [facility] May 2022 SPECIMENS SUBMITTED: A: DUODENUM, BIOPSY [...] : 1960 (Age: 64) Sex: F Institution: [facility] Location: [facility] Date of Operation: 03/05/2025 Date of Reported: 03/07/2025 13:55 Results To: Juan Ledesma MD [facility] Chastity Yuan NP [facility] Clinical History Iron deficiency anemia, gastroesophageal reflux disease, last colonoscopy previous aborted/incomplete at [facility] May 2022 [facility] Final Diagnosis A. DUODENUM, BIOPSY: No pathologic abnormality. B. COLON POLYP AT 55CM: Inflammatory polyp. [facility] Gross Description A. DUODENUM, BIOPSY: Received in [...] B1. Grossed by: MARVA Williamson PA(ASCP) [facility] Conversion Type (Duodenum) 03/05/2025 03/06/2025 10:37 AM EDT Conversion Type (Conversion Source) 03/05/2025 03/06/2025 10:37 AM EDT us Juan Ledesma MD LAB PATHOLOGY ORDERABLES Edite d Result - Final Performing Organization Address City/[facility]/ZIP Co de Phone Number [address] [phone] * Fecal immunochemical test x1 (FIT) (09/23/2024 5:40 PM EDT) Immuno Fecal Occult Negative Negative [facility] Stool (Stool) 09/23/2024 5:4 0 PM EDT 09/23/2024 5:42 PM EDT us Chastity Yuan NP LAB BODY FLUIDS AND STOOL ORDERABLES Final Result Performing Organization Address [facility]/ZIP Co de Phone Number [address] [phone] from Last 3 Months or Most Recently Relevant to Health Maintenance Insurance [place] [address] [facility] Care Teams Precision Mechanical Instrument Maker Relationship Specialty Start Date End Date Pcp, Unknown PCP - General 09/23/24 Additional Source Comments The information contained in this document represents components of the legal health record. It is not the complete legal health record.[facility]
== END 2025-04-30 14:29 | disposition home or self-care (01) ==
LOC: HO.HGS 13:59
PROVIDERS: PCP Nurse Practitioner Family; Visit Provider Surgery
DX: K57.20 Diverticulitis of large intestine with perforation and abscess without bleeding (principal)
CPT/HCPCS: 99024

== ENCOUNTER 2025-05-14 09:02 | Outpatient (REF) | payer OTHER, SELFPAY ==
[2025-05-14 10:31] LABS: Blood Urea Nitrogen 15 mg/dL (9-16); Estimated Glomerular Filt Rate > 60
--- OUTSIDE RECORDS SUMMARY | 2025-05-14 16:52 | XMS_ITS | Clinical Summary ---
Author Organization [facility] Address [address] [facility] [address] [place] [phone] Phone Care Team Providers Care Marketing Technology Specialist Name Role Phone Pcp, Unknown Primary Care Provider Unavailabl e Encounters Date Type Department Care Team Description 03/05/2025 8:16 AM EDT - 03/05/2025 11:59 PM EDT Hospital Encounter [facility] [address] [place] [address] Juan Ledesma MD Discharge Disposition: Home or [...] Description 07/08/2025 9:45 AM EST Office Visit [facility] [address] [place] [address] Unknown, Unknown, Juan James MD [address] [place] [phone] [email or web address] Health Maintenance Due Date Last Done Comments [...] on patient's age to complete this topic IPV VACCINES Aged Out No longer eligi ble [...] Pathology (Non-MGB) (03/05/2025 12:00 AM EDT) Report [address] [address] Pig Machine Operator Helper: Waqas Ta MD Surgical Pathology Report FINAL [...] reflux disease, last colonoscopy previous aborted/incomplete at [facility] May 2022 SPECIMENS SUBMITTED: A: [...] cassette labeled B1. Grossed by: MARVA Williamson, PA([facility]) [id number] 03/06/2025 Grossing Staff: [id number] Patient Name: FLORES VELEZ : 1960 (Age: 64) Sex: F Institution: [facility] Location: [facility] Date of Operation: 03/05/2025 Date of Reported: 03/07/2025 13:55 Results To: Juan Ledesma MD [facility] Chastity Yuan NP [facility] Clinical History Iron deficiency anemia, gastroesophageal reflux disease, last colonoscopy previous aborted/incomplete at [facility] May 2022 [facility] Final Diagnosis A. DUODENUM, BIOPSY: No pathologic abnormality. B. COLON POLYP AT 55CM: Inflammatory polyp. [facility] Gross Description A. DUODENUM, BIOPSY: Received [...] cassette labeled B1. Grossed by: MARVA Williamson, PA(ASCP) [facility] Conversion Type (Duodenum) 03/05/2025 03/06/2025 10:37 AM EDT Conversion Type (Conversion Source) 03/05/2025 03/06/2025 10:37 AM EDT us Juan Ledesma MD LAB PATHOLOGY ORDERABLES Edite d Result - Final Performing Organization Address City/[facility]/ZIP Co de Phone Number [address] [address] * Fecal immunochemical test x1 (FIT) (09/23/2024 5:40 PM EDT) Immuno Fecal Occult Negative Negative [facility] Stool (Stool) 09/23/2024 5:4 0 PM EDT 09/23/2024 5:42 PM EDT us Chastity Yuan NP LAB BODY FLUIDS AND STOOL ORDERABLES Final Result Performing Organization Address [facility]/ZIP Co de Phone Number [address] [address] from Last 3 Months or Most Recently Relevant to Health Maintenance [place] [address] [address] [place] [address] [place], [place] [id number] Care Teams Marketing Technology Specialist Relationship Specialty Start Date End Date Pcp, Unknown PCP - General 09/23/24 Additional Source Comments The information contained in this document represents components of the legal health record. It is not the complete legal health record.[facility]
== END 2025-05-14 09:03 | disposition home or self-care (01) ==
LOC: HO.LAB 09:02
PROVIDERS: PCP Nurse Practitioner Family; Visit Provider Surgery
DX: Z93.3 Colostomy status (principal)
CPT/HCPCS: 36415; 82565; 84520

== ENCOUNTER 2025-06-10 08:24 | Outpatient (REF) | payer OTHER, SELFPAY ==
--- NOTE | ~2025-06-10 | CT_ITS ---
EXAMINATION: CT ABDOMEN AND PELVIS WITH CONTRAST CLINICAL INFORMATION: Colostomy status. Follow-up after sigmoid resection and colostomy and repair of bladder. Perforated diverticulitis with abscess on prior examination. COMPARISON: 03/19/2025 CT examination. TECHNIQUE: Multidetector volumetric images were obtained from the superior aspect of the liver through the pubic symphysis following administration 85 mL of Omnipaque 350 intravenous contrast. Sagittal and coronal reformatted images were obtained on the technologist's workstation. Oral contrast: No This CT examination was performed using dose optimization techniques as appropriate, variously including the following: *Automated exposure control *Adjustment of mA and/or kV according to patient size (this includes techniques or standardized protocols for targeted exams where dose is matched to indication/reason for exam; i.e. extremities or head) *Use of iterative reconstruction technique FINDINGS: LUNG BASES: Imaged lung bases are essentially clear. There are no effusions. The heart size is normal. There is a prominent epicardial fat pad present. The GE junction is normal. LIVER, GALLBLADDER, AND BILIARY TREE: The liver is increased in size. It has normal shape and grossly normal in attenuation. There is a segment 2 lobulated simple cyst measuring 5.8 x 4.4 cm in axial plane. No suspicious focal hepatic lesion or biliary ductal dilatation is present. The gallbladder is unremarkable with no evidence of radiopaque gallstones, gallbladder wall thickening, or obvious pericholecystic inflammatory changes. PANCREAS: Unremarkable. SPLEEN: Normal. ADRENAL GLANDS: Stable right adrenal nodule measuring 1.3 cm Hounsfield units of 47. This is indeterminate although statistically most likely represents an incidental adenoma. The right adrenal is normal. KIDNEYS AND URETERS: The kidneys are normal in size, shape, and attenuation. No hydronephrosis, hydroureter, or calculi seen. No perinephric stranding. BLADDER: Underdistended, limiting detailed evaluation. There is a NADINE drain which courses from the left into the lumen of the urinary bladder. There is mild stranding of the superior and left lateral aspects of the urinary bladder, at the NADINE drain entry point. GASTROINTESTINAL TRACT: Left lower quadrant diverting colostomy present. No obstruction or parastomal hernia. Mild diverticulosis of the sigmoid colon. No rectal abnormality. The small bowel is normal in caliber and course without dilatation or inflammation. The stomach and duodenum have a normal appearance. A normal appendix is visualized. No CT evidence of appendicitis. ABDOMINAL WALL: Left lower quadrant diverting colostomy. Right lower quadrant NADINE drain present. Abdominal and pelvic wall otherwise normal. LYMPH NODES: No abnormal lymphadenopathy present. VASCULAR: Moderate atheromatous calcification of the aorta and iliac arteries without evidence of aneurysm. PELVIC VISCERA: Mildly lobulated contour to the uterus suggests underlying fibroids. No adnexal masses or fluid collections. OSSEOUS STRUCTURES: No suspicious lytic or blastic bone lesions. There are mild to moderate degenerative changes throughout the spine, SI joints, and involving both hip joints. CT/CT abdomen pelvis w IV con IMPRESSION: 1. Left lower quadrant diverting colostomy in place without complication evident. Recent postoperative changes as expected. No gross complication is evident. 2. Right lower quadrant NADINE drain in place which courses into the lumen of the urinary bladder. 3. There are additional ancillary findings as discussed in the body of the report. Electronically signed by: Pepe Delgadillo MD 06/10/2025 09:42 AM ALLEN
[2025-06-10] MEDS: iohexoL 350 MG/ML 100 ML INFUS..BTL IV (09:21)
== END 2025-06-10 08:25 | disposition home or self-care (01) ==
LOC: HO.CT 08:24
PROVIDERS: PCP Nurse Practitioner Family; Visit Provider Surgery
DX: Z93.3 Colostomy status (principal)
CPT/HCPCS: 74177; Q9967

== ENCOUNTER → 2025-06-10 08:25 | Outpatient (BNV) | payer OTHER, SELFPAY | PROVIDERS: PCP Nurse Practitioner Family; Visit Provider Radiology Diagnostic Radiology | DX: Z93.3 Colostomy status (principal) | CPT/HCPCS: 74177 ==